=== PATIENT | male | born 1945 | race Caucasian/White ===

== ENCOUNTER 2017-03-09 10:30 | Inpatient (IN) | payer MEDICARE, OTHER, SELFPAY | END 2017-03-20 10:55 | DRG 193 | PROVIDERS: Admitting Provider Family Medicine; Family Provider Family Medicine; Visit Provider Family Medicine | DX: J18.9 Pneumonia, unspecified organism (principal); J96.02 Acute respiratory failure with hypercapnia; I69.351 Hemiplegia and hemiparesis following cerebral infarction affecting right dominant side; J44.9 Chronic obstructive pulmonary disease, unspecified; I10 Essential (primary) hypertension; E11.9 Type 2 diabetes mellitus without complications | CPT/HCPCS: 36415; 71010; 71020; 71275; 80048; 80053; 80202; 81001; 82150; 82550; 82553; 82803; 82962; 83690; 83880; 84484; 85025; 85378; 85651; 86738; 87040; 87070; 87077; 87116; 87205; 87486; 87581; 87633; 87798; 93005; 93306; 94640; 94660; 94667; 94668; 94760; 97162; 97530; G0238; J0456; J3370; Q9967 ==

== ENCOUNTER → 2017-04-16 12:43 | Outpatient (CLI) | payer MEDICARE, OTHER, SELFPAY ==
[2017-04-16 13:57] VITALS: PULSE 66
== END ==
PROVIDERS: Family Provider Family Medicine; PCP Family Medicine; Visit Provider Family Medicine
DX: R06.02 Shortness of breath (principal)
CPT/HCPCS: 94060; 94640; 94726; 94729

== ENCOUNTER → 2017-04-27 11:26 | Outpatient (POV) | payer MEDICARE, OTHER, SELFPAY ==
--- NOTE | 2017-04-27 14:36 | XR_ITS ---
XR chest 2V HISTORY: ITS.REASON: EMPHYSEMA,RECURRRENT PNEUMONIA ORDERING PHYSICIAN: Mika Jimenez MD PATIENT AGE: 71 years COMPARISON: 03/13/2017 FINDINGS: The cardiomediastinal silhouette and pulmonary vascularity are within normal limits. COPD changes. Right upper lobe pneumonia has improved. There is a triangle shaped area of increased density in the right lung base laterally which is developed in the interval may be due to an area of atelectasis or infiltrate. The remaining lungs are clear. There is hyperinflation with eventration of the hemidiaphragms.. No acute bony abnormalities. IMPRESSION: 1. COPD. 2. Improved right upper lobe infiltrate. 3. Small triangle shaped opacity right lung base laterally which may be due to an area of atelectasis or infiltrate
[2017-04-28 08:23] LABS: Immunoglobulin A, Qn 99 mg/dL (61-437); Immunoglobulin G, Qn 580 mg/dL (700-1600)
[2017-04-30 10:52] LABS: Immunoglobulin M, Qn 69 mg/dL (20-172)
== END ==
PROVIDERS: Family Provider Family Medicine; PCP Family Medicine; Visit Provider Internal Medicine
DX: J43.9 Emphysema, unspecified (principal)
CPT/HCPCS: 36415; 71046; 82784

== ENCOUNTER 2017-04-27 13:37 | Outpatient (RCR) | payer MEDICARE, OTHER, SELFPAY | END 2017-04-27 13:40 | disposition home or self-care (01) | LOC: PT 13:37 | PROVIDERS: Family Provider Family Medicine; PCP Family Medicine; Visit Provider Family Medicine | DX: J43.9 Emphysema, unspecified (principal); J18.9 Pneumonia, unspecified organism | CPT/HCPCS: 36415; 82784; G0424 ==

== ENCOUNTER 2017-04-30 13:00 | Outpatient (RCR) | payer MEDICARE, OTHER, SELFPAY | END 2017-04-30 13:01 | disposition home or self-care (01) | LOC: PT 13:00 | PROVIDERS: Family Provider Family Medicine; Visit Provider Physical Medicine & Rehabilitation | DX: J96.90 Respiratory failure, unspecified, unspecified whether with hypoxia or hypercapnia (principal); J18.9 Pneumonia, unspecified organism; R53.81 Other malaise | CPT/HCPCS: 97110 ==

== ENCOUNTER → 2017-07-12 16:00 | Outpatient (CLI) | payer MEDICARE, OTHER, SELFPAY ==
--- NOTE | 2017-07-12 16:04 | XR_ITS ---
XR ribs LT min 3V w CXR1V HISTORY: Left sided chest wall pain, left axillary pain, palpable abnormality left axilla ITS.REASON: CHEST WALL PAIN ORDERING PHYSICIAN: Amador Wilson MD PATIENT AGE: 71 years COMPARISON: 04/27/2017 FINDINGS: A frontal view of the chest shows no acute finding. There is hyperinflation with COPD Multiple views of the Left ribs were obtained. No fracture or dislocation. No lytic or blastic change. IMPRESSION: 1. Negative left ribs. 2. COPD. 3. Consider chest CT with contrast for further evaluation if there is indeed a palpable abnormality in the left axilla
== END ==
PROVIDERS: PCP Family Medicine; Visit Provider Family Medicine
DX: D48.7 Neoplasm of uncertain behavior of other specified sites (principal)
CPT/HCPCS: 71101

== ENCOUNTER → 2017-07-22 07:48 | Outpatient (CLI) | payer MEDICARE, OTHER, SELFPAY ==
--- NOTE | 2017-07-22 07:52 | CT_ITS ---
CT chest wo con HISTORY: Left-sided chest wall mass ITS.REASON: CHEST WALL MASS ORDERING PHYSICIAN: Amador Wilson MD PATIENT AGE: 71 years Technique: Axial images obtained. Sagittal and coronal reformatted images are also generated and reviewed. All CT scans at the facility use one or more dose reduction, viz: automated exposure control; ma/kV adjustment per patient size (including targeted exams where dose is matched to indication; i.e. head); or iterative reconstruction technique. CONTRAST: None COMPARISON: 03/12/2017 FINDINGS: Scattered small lymph nodes are present within the mediastinum somewhat less apparent than when compared to previous exam. No evidence of aortic aneurysm. There are coronary artery calcifications. Minimal pericardial thickening. Extensive centrilobular emphysema with mild bronchial thickening. There is patchy peripheral infiltrate involving the right lung base. There has been interval development of a 3.9 x 2.4 cm irregular density in the extreme right lung base slightly posteriorly. No air bronchograms are evident within this lesion. This could be due to an area of consolidated lung from pneumonia or pulmonary infarction. Neoplasm is also a consideration. This however was not present on 03/12/2017. The previously noted pneumonia in the right lung base laterally as shown some improvement. There is a 1.7 x 1.2 cm oval soft tissue density in the subcutaneous region of the left anterolateral chest wall. This is located in the seventh interspace. Is not significantly changed dating back to an older chest CT of 01/28/2015. This may be due to a sebaceous cyst or neuroma. No bony destruction evident. No acute bony anomalies. No acute finding in the upper chest. IMPRESSION: 1. There is a 1.7 x 1.2 cm oval soft tissue density in the subcutaneous region of the left anterolateral chest wall. This is located in the seventh interspace. Is not significantly changed dating back to an older chest CT of 01/28/2015. This may be due to a sebaceous cyst or neuroma. No bony destruction evident and no significant change. 2. 3.9 x 2.4 cm irregular density in the extreme right lung base which may be due to consolidated lung from pneumonia or pulmonary infarction versus neoplasm. Follow-up recommended. CT pulmonary angiogram may be of further value initially. 3. Centrilobular emphysema with resolving pneumonia in the right lung base laterally
== END ==
PROVIDERS: Family Provider Family Medicine; PCP Family Medicine; Visit Provider Family Medicine
DX: D48.7 Neoplasm of uncertain behavior of other specified sites (principal); R22.2 Localized swelling, mass and lump, trunk
CPT/HCPCS: 71250

== ENCOUNTER → 2017-08-13 11:27 | Outpatient (CLI) | payer MEDICARE, OTHER, SELFPAY ==
[2017-08-13 13:09] LABS: Blood Urea Nitrogen 17 mg/dL (7-18); Creatinine,Serum 0.96 mg/dL (0.70-1.30); Estimated Glomerular Filt Rate 78 ml/min (>60); GFR (African American) 94 ML/MIN (>60)
== END ==
PROVIDERS: Visit Provider Family Medicine
DX: D38.1 Neoplasm of uncertain behavior of trachea, bronchus and lung (principal)
CPT/HCPCS: 36415; 82565; 84520

== ENCOUNTER → 2017-08-16 09:25 | Outpatient (CLI) | payer MEDICARE, OTHER, SELFPAY ==
--- NOTE | 2017-08-16 09:33 | CT_ITS ---
CT angio chest HISTORY: Follow-up right lower lobe mass ITS.REASON: NEOPLASM OF LUNG ORDERING PHYSICIAN: Amador Wilson MD PATIENT AGE: 71 years COMPARISON: 07/22/2017 TECHNIQUE: Axial images obtained following the administration of 75 mL of Isovue 370 . Sagittal, and coronal reformatted images are also generated and reviewed. All CT scans at the facility use one or more dose reduction, viz: automated exposure control; ma/kV adjustment per patient size (including targeted exams where dose is matched to indication; i.e. head); or iterative reconstruction technique. FINDINGS: There are scattered small nodes in the mediastinum and shavon. No mass or adenopathy. There are coronary artery calcifications. No evidence of aortic aneurysm or dissection no evidence of pulmonary embolus. There are diffuse centrilobular emphysematous changes with scattered areas of fibrosis masslike lesion is once again noted in the right lung base abutting the hemidiaphragm. This however is smaller than when compared to the previous study measuring 2.7 cm AP, 1.4 cm transverse, and up to 2 cm cephalad to caudad previously measuring 3.9 x 2.4 x 2.9 cm in similar dimensions. This does abut the hemidiaphragm. There is a small cavity developing in the apex of this lesion. The margins are irregular. The lungs are otherwise clear. Upper abdominal images are unremarkable. No acute bony anomalies. No change soft tissue nodule in the subcutaneous tissues in the left seventh interspace anteriorly IMPRESSION: 1. Soft tissue mass was again noted along the right hemidiaphragm but is slightly smaller compared to the previous study. Recommend follow until clear. Consider 3 month follow-up 2. Centrilobular emphysema
== END ==
PROVIDERS: Family Provider Family Medicine; PCP Family Medicine; Visit Provider Family Medicine
DX: D49.1 Neoplasm of unspecified behavior of respiratory system (principal)
CPT/HCPCS: 71275; Q9967

== ENCOUNTER → 2017-08-31 15:49 | Outpatient (POV) | payer MEDICARE, OTHER, SELFPAY | PROVIDERS: Family Provider Family Medicine; PCP Family Medicine; Visit Provider Internal Medicine | DX: Z00.00 Encounter for general adult medical examination without abnormal findings (principal) ==

== ENCOUNTER → 2018-03-09 12:56 | Outpatient (CLI) | payer MEDICARE, OTHER, SELFPAY ==
--- NOTE | 2018-03-09 12:59 | CT_ITS ---
CT lung screening EXAM: CT LUNG LOW DOSE WO CONTRAST HISTORY: 50 pack-year smoking history, asymptomatic for lung cancer ITS.REASON: HX TOBACCO USE ORDERING PHYSICIAN: Mika Jimenez MD PATIENT AGE: 72 years COMPARISON: 08/16/2017. TECHNIQUE: The exam was performed on a GE Light Speed [address] scanner using 2.9 mGy CTDI. A low dose helical CT CHEST was performed on a multi-detector scanner. All CT scans at the facility use one or more dose reduction, viz: automated exposure control, ma/kV adjustment per patient size (including targeted exams where dose is matched to indication, i.e. head), or iterative reconstruction technique. The LDCT was performed in a facility that meets the criteria for the screening program. Data regarding this exam was submitted to ACR which is an approved registry. The order for this exam indicates that it came as a result of a lung cancer screening counseling shard decision-making visit that included all the elements required of such a visit including smoking cessation. The radiologist interpreting this exam meets the CMS criteria for the LDCT lung cancer screening program. The exam is reported using the Lung-RADS classification scale and reported to the ACR registry. NOTE: This study was performed for the specific purposes of lung cancer screening and is not an alternative to diagnostic chest CT. RADIATION DOSE: CTDI vol(CT dose Index-volume) = 2.9mG DLP (Dose Length Product) = 124.28 mGcm FINDINGS: Centrilobular, hyperinflation with bronchial thickening consistent with obstructive chronic bronchitis. There are several new small pulmonary nodules. These are noncalcified and are 5 mm or less including a 4 mm nodule right apex, image #18, 4 mm nodule right upper lobe image #29, 4 mm nodule right upper lobe posteriorly image #35, 5 mm nodule left apex medially image #17, 3 mm nodule central aspect of the left upper lobe image #43, 4 mm nodule superior segment left lower lobe image #43. These are well-circumscribed and noncalcified. The previously noted mass in the right lung base is no longer apparent. No effusions or infiltrates. No adenopathy. Coronary artery calcifications are present. IMPRESSION: 1. Lung RADS Category: 4A, there are multiple new pulmonary nodules 5 mm or less. These could be inflammatory/infectious or neoplastic 2. Other findings: Previously noted mass in the right lung base. Coronary artery calcifications RECOMMENDATIONS: [address] follow-up
== END ==
PROVIDERS: PCP Family Medicine; Visit Provider Internal Medicine
DX: Z87.891 Personal history of nicotine dependence (principal)

== ENCOUNTER → 2018-04-05 15:01 | Outpatient (POV) | payer MEDICARE, OTHER, SELFPAY | PROVIDERS: Visit Provider Internal Medicine | DX: Z00.00 Encounter for general adult medical examination without abnormal findings (principal) ==

== ENCOUNTER → 2018-07-11 10:32 | Outpatient (CLI) | payer MEDICARE, OTHER, SELFPAY ==
[2018-07-11 12:06] LABS: Blood Urea Nitrogen 14 mg/dL (7-18); Creatinine,Serum 0.82 mg/dL (0.70-1.30); Estimated Glomerular Filt Rate 93 ml/min (>60); GFR (African American) 112 ML/MIN (>60)
== END ==
PROVIDERS: Visit Provider Family Medicine
DX: R91.1 Solitary pulmonary nodule (principal)
CPT/HCPCS: 36415; 82565; 84520

== ENCOUNTER → 2018-07-12 09:27 | Outpatient (CLI) | payer MEDICARE, OTHER, SELFPAY ==
--- NOTE | 2018-07-12 09:33 | CT_ITS ---
CT chest wo/w con HISTORY: ITS.REASON: PULMONARY NODULE,MASS IN CHEST WALL ORDERING PHYSICIAN: Gla Reyna MD PATIENT AGE: 72 years COMPARISON: 08/16/2017 Technique: Axial images obtained without and following the administration of 75 mL of Optiray 350 . Sagittal, and coronal reformatted images are also generated and reviewed. All CT scans at the facility use one or more dose reduction, viz: automated exposure control, ma/kV adjustment per patient size (including targeted exams where dose is matched to indication, i.e. head), or iterative reconstruction technique. FINDINGS: There are mild atheromatous of the aorta. Scattered small mediastinal nodes are present not significantly changed. There are coronary artery calcifications demonstrated on the unenhanced images. The heart is somewhat smaller than expected with a be secondary to COPD. No evidence of aortic aneurysm, dissection, or central pulmonary embolus. Hyperinflation with attenuation of the peripheral pulmonary vessels consistent with COPD with centrilobular emphysema and scattered fibronodular changes in the apices with scattered scarring. There is a stable 5 mm nodule in the right middle lobe. Calcified granulomas present in the right lower lobe medially. There is a new 4 mm nodule in the left apex posteriorly not readily apparent on the previous exam. No central obstructing lesions are evident. No lobar consolidation or collapse. The previously noted parenchymal opacity in the right lung base abutting the hemidiaphragm is no longer apparent and was likely related to an area of pneumonia/volume loss. No acute bony findings. IMPRESSION: 1. COPD with centrilobular emphysema and scattered areas of scarring. 2. Resolved right basilar consolidation/parenchymal abnormality. 2. No change 5 mm middle lobe nodule. There is a new 4 mm left apical nodule. 6-12 month follow-up suggested to confirm stability
== END ==
PROVIDERS: PCP Family Medicine; Visit Provider Family Medicine
DX: R91.1 Solitary pulmonary nodule (principal); R22.2 Localized swelling, mass and lump, trunk
CPT/HCPCS: 71270; Q9967

== ENCOUNTER → 2018-09-09 15:06 | Outpatient (CLI) | payer MEDICARE, OTHER, SELFPAY ==
--- NOTE | 2018-09-09 15:10 | CT_ITS ---
CT chest wo con HISTORY: Follow-up lung nodule, pulmonary nodules, COPD, emphysema ITS.REASON: ABN FINDING ON LUNG IMAGING ORDERING PHYSICIAN: Mika Jimenez MD PATIENT AGE: 72 years COMPARISON: 07/12/2018, 07/22/2017 Technique: Axial images obtained. Sagittal, and coronal reformatted images are also generated and reviewed. All CT scans at the facility use one or more dose reduction, viz: automated exposure control, ma/kV adjustment per patient size (including targeted exams where dose is matched to indication, i.e. head), or iterative reconstruction technique. FINDINGS: No mediastinal or hilar mass or adenopathy. There are coronary artery calcifications. There is a small node in the aortopulmonic window at 13 x 10 mm unchanged. Centrilobular emphysema present with scattered areas of pulmonary scarring. There is hyperinflation with diffuse bronchial thickening consistent with obstructive chronic bronchitis. There is a 5 mm nodule in the left apex as previously described does not appear significantly changed. No new nodules are evident. No effusions or infiltrates. IMPRESSION: 1. Stable CT appearance of the chest. 2. No change 5 mm left apical nodule. 3. Centrilobular emphysema/COPD with coronary artery calcification noted
== END ==
PROVIDERS: PCP Family Medicine; Visit Provider Internal Medicine
DX: R91.8 Other nonspecific abnormal finding of lung field (principal)
CPT/HCPCS: 71250

== ENCOUNTER → 2018-10-04 14:43 | Outpatient (POV) | payer MEDICARE, OTHER, SELFPAY | PROVIDERS: Visit Provider Internal Medicine | DX: Z00.00 Encounter for general adult medical examination without abnormal findings (principal) ==

== ENCOUNTER 2018-11-04 10:56 | Inpatient (IN) ==
--- NOTE | 2018-11-04 12:12 | History & Physical Report ---
*Admission Date: 11/04/18 <Lizzie Paris 11/04/18 12:17> *Chief complaint: SOA <Lizzie Paris 11/04/18 12:17> *History of present illness: Mr. Rivera is a 73-year-old male with a history of COPD, type 2 diabetes, hypertension, and hyperlipidemia who was seen in the office [facility] on 11/02/2018 for COPD exacerbation. At that time he was started on prednisone and Levaquin. He states that shortness of breath progressively got worse to the point where he had to begin wearing oxygen at 2 L/min at home. He has been coughing of yellow sputum and has been having chills. He returned to the office today on 11/04/2018 and his oxygen was 96% on 2 L. He was having some burning in his chest and was admitted for acute and chronic respiratory failure with hypoxia as well as a COPD exacerbation failing outpatient treatment. <Lizzie Paris 11/04/18 12:17> [facility] History I have reviewed the patient's past medical history: Yes <Lizzie Paris 11/04/18 12:17> Medical History: Reports:: Chronic Obstructive Pulmonary Disease (COPD), Diabetes Mellitus Type 2, Hyperlipidemia, Hypertension <Lizzie Paris 11/04/18 12:17> *Have you ever received a pneumonia vaccine?: Yes <Lizzie Paris 11/04/18 12:17> *Have you received a flu vaccine this season?: Yes <Lizzie Paris 11/04/18 13:28> Other Medical History: Reports: Arthritis <Lizzie Paris 11/04/18 12:17> Laterality Cases: Bilateral: Tonsillectomy <Lizzie Paris 11/04/18 12:17> Other Surgeries: Yes: Colonoscopy, Hernia Repair, Other <Lizzie Paris 11/04/18 12:17> Amputation: No <Lizzie Paris 11/04/18 12:17> Fractures: No <Lizzie Paris 11/04/18 12:17> - *Social History Smoking Status: Former smoker <Lizzie Paris 11/04/18 12:17> Alcohol Intake: never <Lizzie Paris 11/04/18 12:17> Substance Use Type: denies use <Lizzie Paris 11/04/18 12:17> *Occupational Status:: retired <RainaLizzie 11/04/18 12:17> Housing: house <RainaLizzie 11/04/18 12:17> Household Members: spouse <Lizzie Paris 11/04/18 12:17> *Travel in the last 8 weeks: None <DemondmillieLizzie 11/04/18 13:28> Family Hx:: Cancer, Hypertension, Hyperlipidemia <RainaLizzie 11/04/18 12:17> Review of Systems - Constitutional Reports chills, Reports fatigue, Reports weakness <DemondmillieLizzie 11/04/18 12:17> - Eyes Denies blurry vision, Denies double vision <RainaLizzie 11/04/18 12:17> - ENT Reports nasal congestion, Reports sore throat <RainaLizzie 11/04/18 12:17> - *Cardiovascular Reports chest pain, Reports shortness of breath, Denies rapid, pounding, or irregular heartbeat <DemondmillieLizzie 11/04/18 12:17> - *Respiratory Reports cough, Reports shortness of breath [facility] 11/04/18 12:17> - *Gastrointestinal Denies abdominal pain, Denies loose stools, Denies nausea, Denies vomiting <RainaLizzie 11/04/18 12:17> - *Genitourinary Denies difficulty urinating, Denies painful urination <[facility] 11/04/18 12:17> - *Musculoskeletal Denies joint pain <[facility] 11/04/18 12:17> - *Neurologic Reports weakness, Denies headache(s), Denies dizziness <[facility] 11/04/18 12:17> Meds Home Medications Medication Instructions Recorded Confirmed Type albuterol sulfate 1.25 mg/3 mL 1.25 mg INHALATION Q6HP PRN 02/18/18 11/04/18 History solution for nebulization amlodipine 5 mg tablet 5 mg PO DAILY 30 Days tab 02/18/18 11/04/18 History aspirin 325 mg tablet 325 mg PO DAILY 02/18/18 11/04/18 History atorvastatin 40 mg tablet 40 mg PO HS 30 Days tab 02/18/18 11/04/18 History coenzyme Q10 75 mg capsule 75 mg PO DAILY 02/18/18 11/04/18 History gabapentin 300 mg capsule 300 mg PO TID 30 Days cap 02/18/18 11/04/18 History metformin 1,000 mg tablet 1,000 mg PO BID 90 Days tab 02/18/18 11/04/18 History metoprolol tartrate 25 mg tablet 12.5 mg PO BID 30 Days tab 02/18/18 11/04/18 History omeprazole 40 mg capsule,delayed 40 mg PO DAILY 90 Days cap 02/18/18 11/04/18 History release Fluticasone Propionate [Flonase 1 spray INTRANASAL DAILY 11/04/18 11/04/18 History Allergy Relief NS] Ipratropium [place] [Atrovent 0.5 mg IH Q6HP PRN 11/04/18 11/04/18 History 0.5mg/2.5mL neb] <Mary Goodson - 11/04/18 14:19> Allergies Allergy/AdvReac Type Severity Reaction Status Date / Time lisinopril [LISINOPRIL] Allergy Intermediate SWELLING Verified 11/04/18 13:21 <Mary Goodson - 11/04/18 14:19> Exam Vital signs and Labs for Last 24 Hours: Temp Pulse Resp BP Pulse Ox 98.4 F 91 H 22 134/67 98 11/04/18 11:34 11/04/18 12:24 11/04/18 11:34 11/04/18 11:34 11/04/18 12:24 Laboratory Results - last 24 hr 11/04/18 12:00: WBC 12.5 H, RBC 4.73, Hgb 13.7 L, Hct 43.4, MCV 91.8, MCH 28.9, MCHC 31.4 L, RDW 14.2, Plt Count 368, MPV 7.7, Neut % (Auto) 81.3 H, Lymph % (Auto) 12.2, [place] % (Auto) 5.6, Eos % (Auto) 0.7, Baso % (Auto) 0.2, Neut # (Auto) 10.2 H, Lymph # (Auto) 1.5, [facility] # (Auto) 0.7, Eos # (Auto) 0.1, Baso # (Auto) 0.0 11/04/18 12:00: Sodium 141, Potassium 4.5, Chloride 104, Carbon Dioxide 29, Anion Gap 12.5, BUN 19 H, Creatinine 0.90, Estimated Creat Clear 57, Estimated GFR 83, Est GFR ( Amer) 101, Glucose 133 H, Calcium 9.3, Total Bilirubin 0.2, AST 11 L, ALT 24, Alkaline Phosphatase 98, Total Protein 6.6, Albumin 3.4, Globulin 3.2, Albumin/Globulin Ratio 1.1 <GoodsonMary - 11/04/18 14:19> Temp Pulse Resp BP Pulse Ox 98.4 F 80 22 134/67 93 L 11/04/18 11:34 11/04/18 11:34 11/04/18 11:34 11/04/18 11:34 11/04/18 11:34 <Lizzie Paris - 11/04/18 12:17> I & O for Last 24 hours: Intake & Output 11/02/18 11/03/18 11/04/18 11/05/18 11:59 11:59 11:59 11:59 Intake Total 240 / 240 Balance 240 / 240 Weight 130 lb <GoodsonMary 11/04/18 14:19> Intake & Output 11/01/18 11/02/18 11/03/18 11/04/18 11:59 11:59 11:59 11:59 Weight 130 lb <Lizzie Paris 11/04/18 12:17> - Constitutional mild distress (Dyspneic) <Lizzie Paris 11/04/18 12:17> - *Routine HEENT Exam Head: Present: normocephalic <Lizzie Paris - 11/04/18 12:17> Eye: Present: EOMI, PERRL <Lizzie Paris 11/04/18 12:17> ENT: Present: mucous membranes dry <Lizzie Paris 11/04/18 12:17> - *Routine Neck Exam Present: supple. Absent: lymphadenopathy <Lizzie Paris 11/04/18 12:17> - *Routine Respiratory Exam Present: decreased breath sounds, wheezes (Bilateral). Absent: rales <Lizzie Paris 11/04/18 12:17> - *Routine Cardiovascular Exam Present: RRR <Wyatt Parisa 11/04/18 12:17> - *Routine Abdominal Exam Present: soft, normoactive bowel sounds. Absent: tenderness <Lizzie Paris 11/04/18 12:17> - *Routine Extremities Exam Absent: cyanosis, clubbing, edema <Lizzie Paris 11/04/18 12:17> - *Routine Skin Exam Present: warm. Absent: rash <Lizzie Paris 11/04/18 12:17> - *Routine Neurological Exam Present: alert, oriented X3 <Wyatt Parisa 11/04/18 12:17> Assessment and Plan (1) COPD exacerbation Current visit: Yes Status: Acute Category: Medical Code(s): J44.1 - Chronic obstructive pulmonary disease with (acute) exacerbation (2) Acute and chronic respiratory failure with hypoxia Current visit: Yes Status: Acute Category: Medical Code(s): J96.21 - Acute and chronic respiratory failure with hypoxia (3) Hypertension Current visit: Yes Status: Chronic Category: Medical Code(s): I10 - Essential (primary) hypertension (4) Hyperlipidemia Current visit: Yes Status: Chronic Category: Medical Code(s): E78.5 - Hyperlipidemia, unspecified (5) Type 2 diabetes mellitus Current visit: Yes Status: Chronic Category: Medical Code(s): E11.9 - Type 2 diabetes mellitus without complications (6) COPD (chronic obstructive pulmonary disease) Current visit: Yes Status: Chronic Category: Medical Code(s): J44.9 - Chronic obstructive pulmonary disease, unspecified <Lizzie Paris 11/04/18 13:24> (1) Acute and chronic respiratory failure with hypoxia Current visit: Yes Status: Acute Category: Medical Code(s): J96.21 - Acute and chronic respiratory failure with hypoxia (2) COPD exacerbation Current visit: Yes Status: Acute Category: Medical Code(s): J44.1 - Chronic obstructive pulmonary disease with (acute) exacerbation (3) Hypertension Current visit: Yes Status: Chronic Category: Medical Code(s): I10 - Essential (primary) hypertension (4) Hyperlipidemia Current visit: Yes Status: Chronic Category: Medical Code(s): E78.5 - Hyperlipidemia, unspecified (5) Type 2 diabetes mellitus Current visit: Yes Status: Chronic Category: Medical Code(s): E11.9 - Type 2 diabetes mellitus without complications (6) COPD (chronic obstructive pulmonary disease) Current visit: Yes Status: Chronic Category: Medical Code(s): J44.9 - Chronic obstructive pulmonary disease, unspecified <Mary Goodson - 11/04/18 14:19> - Assessment and plan all Dx Assessment and Plan for all problems:: Agree with above, will admit under Dr. Roach as patient prefers to see him. Will await cultures and treat as his clinical course dictates. <Mary Goodson - 11/04/18 14:19> The patient will be admitted and started on oxygen, nebs, IV steroids, and IV antibiotics after failing outpatient therapy. We will get a chest x-ray, sputum culture, and blood cultures. <Lizzie Paris - 11/04/18 12:17>
[2018-11-04 12:29] LABS: Basophils % 0.2 % (0.1-2.0); Eosinophils # 0.1 K/mm3 (0.0-0.4); Eosinophils % 0.7 % (0.1-12.0); Hematocrit 43.4 % (42.0-52.0); Hemoglobin 13.7 g/dL (14.1-18.0); Lymphocytes # 1.5 K/mm3 (0.7-4.5); Lymphocytes % 12.2 % (10-50); Mean Corpuscular HGB Conc 31.4 g/dL (31.8-35.4); Mean Corpuscular Volume 91.8 fl (80-94); Mean Platelet Volume 7.7 fl (7.4-10.4); Monocytes # 0.7 K/mm3 (0.1-1.0); Monocytes % 5.6 % (1.7-9.3); Neutrophils # 10.2 K/mm3 (1.8-7.8); Neutrophils % 81.3 % (37.0-80.0); Platelet Count 368 K/mm3 (142-424); Red Blood Count 4.73 M/mm3 (4.60-6.20); Red Cell Distribution Width 14.2 % (11.5-17.5); White Blood Count 12.5 K/mm3 (4.8-10.8)
[2018-11-04 12:39] LABS: Albumin Level 3.4 gm/dL (3.4-5.0); Albumin/Globulin Ratio 1.1 (1.1-1.8); Anion Gap 12.5 mEq/L (5-15); Bilirubin,Total 0.2 mg/dL (0.2-1.0); Calcium 9.3 mg/dL (8.5-10.1); Globulin 3.2 gm/dl (1.3-3.2); Total Protein,Serum 6.6 gm/dL (6.4-8.2)
--- NOTE | 2018-11-04 13:55 | Pharmacy Consult Notes ---
[facility] Pharmacy VTE Monitoring - Patient Demographics Admission date: 11/04/18 Report Date: 11/04/18 Time: 13:55 Allergies/Adverse Reactions: Patient Allergies lisinopril [LISINOPRIL] Allergy (Intermediate, Verified 11/04/18 13:21) SWELLING Height: 1.78 m Weight: 58.967 kg Patient Problems: Current Active Problems COPD exacerbation (Acute) Acute and chronic respiratory failure with hypoxia (Acute) Hypertension (Chronic) Hyperlipidemia (Chronic) Type 2 diabetes mellitus (Chronic) COPD (chronic obstructive pulmonary disease) (Chronic) - VTE Risk Labs: VTE Related Lab Results Hgb 13.7 g/dL (14.1-18.0) L 11/04/18 12:00 Hct 43.4 % (42.0-52.0) 11/04/18 12:00 Plt Count 368 K/mm3 (142-424) 11/04/18 12:00 BUN 19 mg/dL (7-18) H 11/04/18 12:00 Creatinine 0.90 mg/dL (0.70-1.30) 11/04/18 12:00 Estimated Creat Clear 57 mL/min (50-200) 11/04/18 12:00 Was VTE Risk Assessment Performed: Yes VTE Score: 3 VTE Risk Level: Low Risk Clinical Trial Participant: No - Prophylaxis VTE Prophylaxis Ordered?: Yes Types of VTE Prophylaxis: TEDS Knee High
[2018-11-05 06:13] LABS: Basophils % 0.2 % (0.1-2.0); Eosinophils # 0.1 K/mm3 (0.0-0.4); Eosinophils % 1.1 % (0.1-12.0); Hematocrit 39.8 % (42.0-52.0); Hemoglobin 13.1 g/dL (14.1-18.0); Lymphocytes # 1.2 K/mm3 (0.7-4.5); Lymphocytes % 13.1 % (10-50); Mean Corpuscular HGB Conc 33.1 g/dL (31.8-35.4); Mean Corpuscular Volume 92.4 fl (80-94); Monocytes # 0.4 K/mm3 (0.1-1.0); Monocytes % 4.9 % (1.7-9.3); Neutrophils # 7.2 K/mm3 (1.8-7.8); Neutrophils % 80.7 % (37.0-80.0); Platelet Count 311 K/mm3 (142-424); Red Cell Distribution Width 14.2 % (11.5-17.5); White Blood Count 8.9 K/mm3 (4.8-10.8)
--- NOTE | 2018-11-05 10:42 | Progress Note ---
Internal Medicine - PN: Subj *Date: 11/05/18 *Time: 10:39 Interval history: The chart is reviewed. On exam the patient has decreased breath sounds and bilateral wheezes. He is in no acute distress. He has no leg edema. His heart rate is regular and sinus. He normally takes amlodipine 5 mg a day. His blood pressure is good this morning. I will initiate 2.5 mg today. There could be some assistance with his bronchospasm with this medication. Exam Vital signs and Labs for Last 24 Hours: Temp Pulse Resp BP Pulse Ox 98.5 F 89 19 137/70 91 L 11/05/18 07:44 11/05/18 07:44 11/05/18 07:44 11/05/18 07:44 11/05/18 07:44 Laboratory Results - last 24 hr 11/04/18 12:00: WBC 12.5 H, RBC 4.73, Hgb 13.7 L, Hct 43.4, MCV 91.8, MCH 28.9, MCHC 31.4 L, RDW 14.2, Plt Count 368, MPV 7.7, Neut % (Auto) 81.3 H, Lymph % (Auto) 12.2, [place] % (Auto) 5.6, Eos % (Auto) 0.7, Baso % (Auto) 0.2, Neut # (Auto) 10.2 H, Lymph # (Auto) 1.5, [place] # (Auto) 0.7, Eos # (Auto) 0.1, Baso # (Auto) 0.0 11/04/18 12:00: Sodium 141, Potassium 4.5, Chloride 104, Carbon Dioxide 29, Anion Gap 12.5, BUN 19 H, Creatinine 0.90, Estimated Creat Clear 57, Estimated GFR 83, Est GFR ( Amer) 101, Glucose 133 H, Calcium 9.3, Total Bilirubin 0.2, AST 11 L, ALT 24, Alkaline Phosphatase 98, Total Protein 6.6, Albumin 3.4, Globulin 3.2, Albumin/Globulin Ratio 1.1 11/04/18 13:23: Mycoplasma pneumon IgM Non-reactive 11/04/18 14:21: Lactate 2.2 H 11/04/18 18:45: Lactate 3.5 H 11/04/18 22:15: Lactate 2.7 H 11/05/18 05:45: WBC 8.9 D, RBC 4.30 L, Hgb 13.1 L, Hct 39.8 L, MCV 92.4, MCH 30.5, MCHC 33.1, RDW 14.2, Plt Count 311, MPV 8.0, Neut % (Auto) 80.7 H, Lymph % (Auto) 13.1, [place] % (Auto) 4.9, Eos % (Auto) 1.1, Baso % (Auto) 0.2, Neut # (Auto) 7.2, Lymph # (Auto) 1.2, [place] # (Auto) 0.4, Eos # (Auto) 0.1, Baso # (Auto) 0.0 I & O for Last 24 hours: Intake & Output 11/02/18 11/03/18 11/04/18 11/05/18 11:59 11:59 11:59 11:59 Intake Total 2409 / 2409 Output Total 1800 / 1800 Balance 609 / 609 Weight 130 lb 130 lb Microbiology Reports for the Last 24 Hours: Microbiology 11/04/18 21:00 Sputum - Expectorated Sputum Gram Stain - Final 11/04/18 21:00 Sputum - Expectorated Sputum Sputum Culture - Preliminary - Constitutional no acute distress - *Routine HEENT Exam Head: Present: normocephalic Eye: Present: PERRL ENT: Present: mucous membranes moist - *Routine Respiratory Exam Present: decreased breath sounds, wheezes - *Routine Cardiovascular Exam Present: RRR - *Routine Abdominal Exam Present: soft. Absent: tenderness - *Routine Extremities Exam Absent: edema - *Routine Neurological Exam Present: alert, oriented X3 Assessment and Plan (1) Acute and chronic respiratory failure with hypoxia Current visit: Yes Status: Acute Category: Medical Code(s): J96.21 - Acute and chronic respiratory failure with hypoxia (2) COPD exacerbation Current visit: Yes Status: Acute Category: Medical Code(s): J44.1 - Chronic obstructive pulmonary disease with (acute) exacerbation (3) Hypertension Current visit: Yes Status: Chronic Category: Medical Code(s): I10 - Essential (primary) hypertension (4) Hyperlipidemia Current visit: Yes Status: Chronic Category: Medical Code(s): E78.5 - Hy perlipidemia, unspecified (5) Type 2 diabetes mellitus Current visit: Yes Status: Chronic Category: Medical Code(s): E11.9 - Type 2 diabetes mellitus without complications (6) COPD (chronic obstructive pulmonary disease) Current visit: Yes Status: Chronic Category: Medical Code(s): J44.9 - Chronic obstructive pulmonary disease, unspecified - Assessment and plan all Dx Assessment and Plan for all problems:: Continue present regimen. White count has declined. Amlodipine is added as mentioned.
--- NOTE | 2018-11-05 12:08 | Pharmacy Consult Notes ---
[facility] Pharmacy VTE Monitoring - Patient Demographics Admission date: 11/05/18 Report Date: 11/05/18 Time: 12:07 Allergies/Adverse Reactions: Patient Allergies lisinopril [LISINOPRIL] Allergy (Intermediate, Verified 11/04/18 13:21) SWELLING Height: 1.78 m Weight: 58.967 kg Patient Problems: Current Active Problems COPD exacerbation (Acute) Acute and chronic respiratory failure with hypoxia (Acute) Hypertension (Chronic) Hyperlipidemia (Chronic) Type 2 diabetes mellitus (Chronic) COPD (chronic obstructive pulmonary disease) (Chronic) - VTE Risk Labs: VTE Related Lab Results Hgb 13.1 g/dL (14.1-18.0) L 11/05/18 05:45 Hct 39.8 % (42.0-52.0) L 11/05/18 05:45 Plt Count 311 K/mm3 (142-424) 11/05/18 05:45 BUN 19 mg/dL (7-18) H 11/04/18 12:00 Creatinine 0.90 mg/dL (0.70-1.30) 11/04/18 12:00 Estimated Creat Clear 57 mL/min (50-200) 11/04/18 12:00 Was VTE Risk Assessment Performed: Yes VTE Score: 3 VTE Risk Level: Low Risk Clinical Trial Participant: No - Prophylaxis Types of VTE Prophylaxis: TEDS Knee High (ROSIE HOSE ORDERED) Location of Applied Device: Bilateral Lower Extremeties
[2018-11-06 06:25] LABS: Basophils % 0.2 % (0.1-2.0); Eosinophils # 0.1 K/mm3 (0.0-0.4); Eosinophils % 0.5 % (0.1-12.0); Hematocrit 40.6 % (42.0-52.0); Hemoglobin 12.9 g/dL (14.1-18.0); Lymphocytes # 1.5 K/mm3 (0.7-4.5); Lymphocytes % 10.5 % (10-50); Mean Corpuscular HGB Conc 31.7 g/dL (31.8-35.4); Mean Corpuscular Volume 92.1 fl (80-94); Monocytes # 0.7 K/mm3 (0.1-1.0); Neutrophils # 11.9 K/mm3 (1.8-7.8); Neutrophils % 83.7 % (37.0-80.0); Platelet Count 354 K/mm3 (142-424); Red Blood Count 4.41 M/mm3 (4.60-6.20); Red Cell Distribution Width 13.9 % (11.5-17.5); White Blood Count 14.2 K/mm3 (4.8-10.8)
--- NOTE | 2018-11-06 10:49 | Progress Note ---
Internal Medicine - PN: Subj *Date: 11/06/18 *Time: 10:47 Interval history: Patient doing well today. Able to breathe without any problems. Exam Vital signs and Labs for Last 24 Hours: Temp Pulse Resp BP Pulse Ox 98.2 F 84 17 129/58 L 97 11/06/18 07:51 11/06/18 07:51 11/06/18 07:51 11/06/18 07:51 11/06/18 07:51 Laboratory Results - last 24 hr 11/06/18 05:50: WBC 14.2 H D, RBC 4.41 L, Hgb 12.9 L, Hct 40.6 L, MCV 92.1, MCH 29.2, MCHC 31.7 L, RDW 13.9, Plt Count 354, MPV 8.0, Neut % (Auto) 83.7 H, Lymph % (Auto) 10.5, [place] % (Auto) 5.0, Eos % (Auto) 0.5, Baso % (Auto) 0.2, Neut # (Auto) 11.9 H, Lymph # (Auto) 1.5, [place] # (Auto) 0.7, Eos # (Auto) 0.1, Baso # (Auto) 0.0 I & O for Last 24 hours: Intake & Output 11/03/18 11/04/18 11/05/18 11/06/18 11:59 11:59 11:59 11:59 Intake Total 2559 / 2559 3222 / 3222 Output Total 1800 / 1800 2025 / 202 Balance 759 / 759 1197 / 1197 Weight 130 lb 130 lb 130 lb Microbiology Reports for the Last 24 Hours: Microbiology 11/04/18 21:00 Sputum - Expectorated Sputum Gram Stain - Final 11/04/18 21:00 Sputum - Expectorated Sputum Sputum Culture - Final Normal Respiratory Danielle - *Routine HEENT Exam Head: Present: normocephalic Eye: Present: EOMI, PERRL ENT: Present: mucous membranes moist - *Routine Neck Exam Present: supple. Absent: lymphadenopathy - *Routine Respiratory Exam Present: CTA bilaterally - *Routine Cardiovascular Exam Present: RRR - *Routine Abdominal Exam Present: soft, normoactive bowel sounds. Absent: tenderness - *Routine Extremities Exam Absent: cyanosis, clubbing, edema - *Routine Skin Exam Present: warm. Absent: rash - *Routine Neurological Exam Present: alert, oriented X3 Assessment and Plan (1) Acute and chronic respiratory failure with hypoxia Current visit: Yes Status: Acute Category: Medical Code(s): J96.21 - Acute and chronic respiratory failure with hypoxia (2) COPD exacerbation Current visit: Yes Status: Acute Category: Medical Code(s): J44.1 - Chronic obstructive pulmonary disease with (acute) exacerbation (3) Hypertension Current visit: Yes Status: Chronic Category: Medical Code(s): I10 - Essential (primary) hypertension (4) Hyperlipidemia Current visit: Yes Status: Chronic Category: Medical Code(s): E78.5 - Hyperlipidemia, unspecified (5) Type 2 diabetes mellitus Current visit: Yes Status: Chronic Category: Medical Code(s): E11.9 - Type 2 diabetes mellitus without complications (6) COPD (chronic obstructive pulmonary disease) Current visit: Yes Status: Chronic Category: Medical Code(s): J44.9 - Chronic obstructive pulmonary disease, unspecified - Assessment and plan all Dx Assessment and Plan for all problems:: We will start to wean off steroids and oxygen as tolerated. Possible discharge in 1 to 2 days.
--- NOTE | 2018-11-07 07:58 | Progress Note ---
Internal Medicine - PN: Subj *Date: 11/07/18 *Time: 07:58 Exam Vital signs and Labs for Last 24 Hours: Temp Pulse Resp BP Pulse Ox 98.1 F 93 H 18 156/81 H 94 L 11/07/18 04:00 11/07/18 06:21 11/07/18 04:00 11/07/18 04:00 11/07/18 06:21 I & O for Last 24 hours: Intake & Output 11/04/18 11/05/18 11/06/18 11/07/18 23:59 23:59 23:59 23:59 Intake Total 1263 / 1263 1926 / 1926 4449 / 4449 1051 / 1051 Output Total 900 / 900 1500 / 1500 1925 / 2275 1750 / 1750 Balance 363 / 363 426 / 426 2524 / 2174 -699 / -699 Weight 58.967 kg 58.967 kg 58.967 kg 59.874 kg Microbiology Reports for the Last 24 Hours: Microbiology 11/04/18 12:15 Blood Blood Culture - Preliminary NO GROWTH AFTER 48 HOURS 11/04/18 12:00 Blood Blood Culture - Preliminary NO GROWTH AFTER 48 HOURS 11/04/18 21:00 Sputum - Expectorated Sputum Gram Stain - Final 11/04/18 21:00 Sputum - Expectorated Sputum Sputum Culture - Final Normal Respiratory Danielle Assessment and Plan (1) Acute and chronic respiratory failure with hypoxia Current visit: Yes Status: Acute Category: Medical Code(s): J96.21 - Acute and chronic respiratory failure with hypoxia (2) COPD exacerbation Current visit: Yes Status: Acute Category: Medical Code(s): J44.1 - Chronic obstructive pulmonary disease with (acute) exacerbation (3) Hypertension Current visit: Yes Status: Chronic Category: Medical Code(s): I10 - Essential (primary) hypertension (4) Hyperlipidemia Current visit: Yes Status: Chronic Category: Medical Code(s): E78.5 - Hyperlipidemia, unspecified (5) Type 2 diabetes mellitus Current visit: Yes Status: Chronic Category: Medical Code(s): E11.9 - Type 2 diabetes mellitus without complications (6) COPD (chronic obstructive pulmonary disease) Current visit: Yes Status: Chronic Category: Medical Code(s): J44.9 - Chronic obstructive pulmonary disease, unspecified The patient's infection will respond to the chosen ABx?: Yes Is the patient receiving the right drug, dose, and route?: Yes Could a more targeted ABx be ordered?: No (CULTURES NEGATIVE OF DOCUMENTATION)
--- NOTE | 2018-11-07 09:06 | Progress Note ---
Internal Medicine - PN: Subj *Date: 11/07/18 *Time: 09:03 Interval history: Patient continues to be short of breath. He has some cough. Breathing treatments help. He is able to eat a little. He did not sleep well last night and requests something for sleep. Bowels are moving and he is voiding QS. He ambulates to the bathroom. He feels better sitting in the chair. Exam Vital signs and Labs for Last 24 Hours: Temp Pulse Resp BP Pulse Ox 97.8 F 95 H 20 148/82 H 97 11/07/18 08:00 11/07/18 08:00 11/07/18 08:00 11/07/18 08:00 11/07/18 08:00 I & O for Last 24 hours: Intake & Output 11/04/18 11/05/18 11/06/18 11/07/18 11:59 11:59 11:59 11:59 Intake Total 2559 / 2559 3372 / 3372 2998 / 2998 Output Total 1800 / 1800 2025 / 2025 2250 / 2250 Balance 759 / 759 1347 / 1347 748 / 748 Weight 130 lb 130 lb 130 lb 132 lb Microbiology Reports for the Last 24 Hours: Microbiology 11/04/18 12:15 Blood Blood Culture - Preliminary NO GROWTH AFTER 48 HOURS 11/04/18 12:00 Blood Blood Culture - Preliminary NO GROWTH AFTER 48 HOURS 11/04/18 21:00 Sputum - Expectorated Sputum Gram Stain - Final 11/04/18 21:00 Sputum - Expectorated Sputum Sputum Culture - Final Normal Respiratory Danielle - Constitutional no acute distress - *Routine Respiratory Exam Comments: Bilateral wheezing inspiratory and expiratory with crackles in the left upper lobe. Decreased breath sounds on the right. - *Routine Cardiovascular Exam Present: RRR - *Routine Extremities Exam Absent: edema, calf tenderness Comments: ROSIE holes on - *Routine Neurological Exam Present: alert, oriented X3 Assessment and Plan (1) Acute and chronic respiratory failure with hypoxia Current visit: Yes Status: Acute Category: Medical Code(s): J96.21 - Acute and chronic respiratory failure with hypoxia (2) COPD exacerbation Current visit: Yes Status: Acute Category: Medical Code(s): J44.1 - Chronic obstructive pulmonary disease with (acute) exacerbation (3) Hypertension Current visit: Yes Status: Chronic Category: Medical Code(s): I10 - Essential (primary) hypertension (4) Hyperlipidemia Current visit: Yes Status: Chronic Category: Medical Code(s): E78.5 - Hyperlipidemia, unspecified (5) Type 2 diabetes mellitus Current visit: Yes Status: Chronic Category: Medical Code(s): E11.9 - Type 2 diabetes mellitus without complications (6) COPD (chronic obstructive pulmonary disease) Current visit: Yes Status: Chronic Category: Medical Code(s): J44.9 - Chronic obstructive pulmonary disease, unspecified - Assessment and plan all Dx Assessment and Plan for all problems:: Extra dose of IV Solu-Medrol. Continue with antibiotic. Will decrease IV fluids.
[2018-11-08 06:33] LABS: Calcium 9.1 mg/dL (8.5-10.1)
[2018-11-08 07:31] LABS: Basophils % 0.1 % (0.1-2.0); Eosinophils % 0.1 % (0.1-12.0); Hematocrit 43.7 % (42.0-52.0); Lymphocytes # 1.4 K/mm3 (0.7-4.5); Lymphocytes % 10.6 % (10-50); Mean Corpuscular Volume 91.7 fl (80-94); Mean Platelet Volume 7.5 fl (7.4-10.4); Monocytes # 0.8 K/mm3 (0.1-1.0); Monocytes % 5.9 % (1.7-9.3); Neutrophils # 11.3 K/mm3 (1.8-7.8); Neutrophils % 83.2 % (37.0-80.0); Platelet Count 390 K/mm3 (142-424); Red Blood Count 4.77 M/mm3 (4.60-6.20); White Blood Count 13.5 K/mm3 (4.8-10.8)
--- NOTE | 2018-11-08 09:08 | Progress Note ---
Internal Medicine - PN: Subj *Date: 11/08/18 *Time: 09:05 Interval history: Patient states he is feeling slightly better. He states his breathing is better and he is able to stay off oxygen longer. He plans to ambulate more in the room today. He is eating as usual which is not very much. He drinks fluids satisfactory. He continues to void QS. He denies pain. Exam Vital signs and Labs for Last 24 Hours: Temp Pulse Resp BP Pulse Ox 98.2 F 97 H 18 137/65 90 L 11/08/18 08:00 11/08/18 08:00 11/08/18 08:00 11/08/18 08:00 11/08/18 08:00 Laboratory Results - last 24 hr 11/08/18 05:57: WBC 13.5 H, RBC 4.77, Hgb 14.0 L, Hct 43.7, MCV 91.7, MCH 29.3, MCHC 32.0, RDW 14.0, Plt Count 390, MPV 7.5, Neut % (Auto) 83.2 H, Lymph % (Auto) 10.6, [place] % (Auto) 5.9, Eos % (Auto) 0.1, Baso % (Auto) 0.1, Neut # (Auto) 11.3 H, Lymph # (Auto) 1.4, [place] # (Auto) 0.8, Eos # (Auto) 0.0, Baso # (Auto) 0.0 11/08/18 05:57: Sodium 130 L, Potassium 4.0, Chloride 96 L, Carbon Dioxide 33 H, Anion Gap 5.0, BUN 21 H, Creatinine 0.86, Estimated Creat Clear 57, Estimated GFR 88, Est GFR ( Amer) 106, Glucose 281 H, Calcium 9.1 I & O for Last 24 hours: Intake & Output 11/05/18 11/06/18 11/07/18 11/08/18 11:59 11:59 11:59 11:59 Intake Total 2559 / 2559 3372 / 3372 3148 / 3148 2516 / 2516 Output Total 1800 / 1800 2024 / 2024 2250 / 2250 3900 / 3900 Balance 759 / 759 1347 / 1347 898 / 898 -1384 / -1384 Weight 130 lb 130 lb 132 lb 131 lb 15.993 oz - Constitutional no acute distress Comments: Breathing is unlabored - *Routine Respiratory Exam Comments: Congested cough with inspiratory and expiratory wheezing more audible on the right diminished breath sounds posteriorly - *Routine Cardiovascular Exam Present: RRR - *Routine Abdominal Exam Present: soft, normoactive bowel sounds. Absent: tenderness, distended - *Routine Extremities Exam Absent: edema, calf tenderness - *Routine Neurological Exam Present: alert, oriented X3 Assessment and Plan (1) Acute and chronic respiratory failure with hypoxia Current visit: Yes Status: Acute Category: Medical Code(s): J96.21 - Acute and chronic respiratory failure with hypoxia (2) COPD exacerbation Current visit: Yes Status: Acute Category: Medical Code(s): J44.1 - Chronic obstructive pulmonary disease with (acute) exacerbation (3) Hypertension Current visit: Yes Status: Chronic Category: Medical Code(s): I10 - Essential (primary) hypertension (4) Hyperlipidemia Current visit: Yes Status: Chronic Category: Medical Code(s): E78.5 - Hyperlipidemia, unspecified (5) Type 2 diabetes mellitus Current visit: Yes Status: Chronic Category: Medical Code(s): E11.9 - Type 2 diabetes mellitus without complications (6) COPD (chronic obstructive pulmonary disease) Current visit: Yes Status: Chronic Category: Medical Code(s): J44.9 - Chronic obstructive pulmonary disease, unspecified - Assessment and plan all Dx Assessment and Plan for all problems:: Continue with current care. Activity encouraged.
[2018-11-09 06:18] LABS: Basophils % 0.2 % (0.1-2.0); Eosinophils % 0.1 % (0.1-12.0); Hematocrit 44.4 % (42.0-52.0); Lymphocytes # 1.1 K/mm3 (0.7-4.5); Lymphocytes % 8.5 % (10-50); Mean Corpuscular HGB Conc 31.6 g/dL (31.8-35.4); Mean Corpuscular Volume 90.9 fl (80-94); Monocytes # 0.7 K/mm3 (0.1-1.0); Monocytes % 5.5 % (1.7-9.3); Neutrophils # 11.3 K/mm3 (1.8-7.8); Neutrophils % 85.7 % (37.0-80.0); Platelet Count 395 K/mm3 (142-424); Red Blood Count 4.88 M/mm3 (4.60-6.20); Red Cell Distribution Width 13.8 % (11.5-17.5); White Blood Count 13.2 K/mm3 (4.8-10.8)
[2018-11-09 06:26] LABS: Anion Gap 7.7 mEq/L (5-15); Calcium 8.9 mg/dL (8.5-10.1)
--- NOTE | 2018-11-09 08:12 | Progress Note ---
Internal Medicine - PN: Subj *Date: 11/09/18 *Time: 08:09 Interval history: Patient feels he is a little bit better. He uses his nasal O2 as needed. He still gets dyspneic with any activity. He has an infrequent cough. He is eating as usual. He states he slept as usual. Exam Vital signs and Labs for Last 24 Hours: Temp Pulse Resp BP Pulse Ox 97.5 F L 82 18 157/84 H 86 L 11/09/18 04:00 11/09/18 05:37 11/09/18 04:00 11/09/18 04:00 11/09/18 05:37 Laboratory Results - last 24 hr 11/09/18 05:30: WBC 13.2 H, RBC 4.88, Hgb 14.0 L, Hct 44.4, MCV 90.9, MCH 28.7, MCHC 31.6 L, RDW 13.8, Plt Count 395, MPV 7.0 L, Neut % (Auto) 85.7 H, Lymph % (Auto) 8.5 L, [place] % (Auto) 5.5, Eos % (Auto) 0.1, Baso % (Auto) 0.2, Neut # (Auto) 11.3 H, Lymph # (Auto) 1.1, [place] # (Auto) 0.7, Eos # (Auto) 0.0, Baso # (Auto) 0.0 11/09/18 05:30: Sodium 138, Potassium 4.7, Chloride 103, Carbon Dioxide 32, Anion Gap 7.7, BUN 27 H D, Creatinine 0.82, Estimated Creat Clear 56, Estimated GFR 93, Est GFR ( Amer) 112, Glucose 314 H, Calcium 8.9 I & O for Last 24 hours: Intake & Output 11/06/18 11/07/18 11/08/18 11/09/18 11:59 11:59 11:59 11:59 Intake Total 3372 / 3372 3148 / 3148 2516 / 2516 2450 / 2450 Output Total 2024 / 2024 2250 / 2250 3900 / 3900 1775 / 1775 Balance 1347 / 1347 898 / 898 -1384 / -1384 675 / 675 Weight 130 lb 132 lb 131 lb 15.993 oz 129 lb 8 oz - Constitutional no acute distress Comments: Sitting on bedside after completing breakfast. Appears comfortable. Some dyspnea with talking. - *Routine Respiratory Exam Comments: Soft scattered inspiratory and expiratory wheezing - *Routine Cardiovascular Exam Present: RRR - *Routine Abdominal Exam Present: soft, normoactive bowel sounds. Absent: tenderness - *Routine Extremities Exam Absent: edema, calf tenderness - *Routine Neurological Exam Present: alert, oriented X3 Assessment and Plan (1) Acute and chronic respiratory failure with hypoxia Current visit: Yes Status: Acute Category: Medical Code(s): J96.21 - Acute and chronic respiratory failure with hypoxia (2) COPD exacerbation Current visit: Yes Status: Acute Category: Medical Code(s): J44.1 - Chronic obstructive pulmonary disease with (acute) exacerbation (3) Hypertension Current visit: Yes Status: Chronic Category: Medical Code(s): I10 - Essential (primary) hypertension (4) Hyperlipidemia Current visit: Yes Status: Chronic Category: Medical Code(s): E78.5 - Hyperlipidemia, unspecified (5) Type 2 diabetes mellitus Current visit: Yes Status: Chronic Category: Medical Code(s): E11.9 - Type 2 diabetes mellitus without complications (6) COPD (chronic obstructive pulmonary disease) Current visit: Yes Status: Chronic Category: Medical Code(s): J44.9 - Chronic obstructive pulmonary disease, unspecified - Assessment and plan all Dx Assessment and Plan for all problems:: Continue with current care.
[2018-11-09 10:21] LABS: Lymphocytes % 13 % (10-50); Monocytes % 4 % (2-9); Neutrophils % 83 % (42-76); Total Cells Counted 100
[2018-11-09 10:22] LABS: RBC Morphology Normal
--- NOTE | 2018-11-10 08:14 | Progress Note ---
Internal Medicine - PN: Subj *Date: 11/10/18 *Time: 08:12 Interval history: Patient states he is feeling better today. He has less shortness of breath and has been off of his oxygen since midnight. His oxygen is 90 to 93% on room air this morning. He states he has been up walking the hallways. He has not been eating or sleeping very well, but he states this is normal for him at home. Exam Vital signs and Labs for Last 24 Hours: Temp Pulse Resp BP Pulse Ox 97.4 F L 71 19 133/67 93 L 11/10/18 04:00 11/10/18 05:50 11/10/18 04:00 11/10/18 04:00 11/10/18 05:50 Laboratory Results - last 24 hr 11/04/18 13:23: Legionella pneumophila Ab <0.91 11/04/18 19:10: Fluid Culture Not indicated, S. pneumoniae Antigen Negative, S. pneumoniae Ag Source Urine, Organism ID Not indicated. 11/09/18 05:30: Total Counted 100, Neutrophils % (Manual) 83 H, Lymphocytes % (Manual) 13, Monocytes % (Manual) 4, Platelet Estimate Normal, RBC Morphology Normal I & O for Last 24 hours: Intake & Output 11/07/18 11/08/18 11/09/18 11/10/18 11:59 11:59 11:59 11:59 Intake Total 3148 / 3148 2516 / 2516 2810 / 2810 1580 / 1580 Output Total 2250 / 2250 3900 / 3900 2024 / 2024 1000 / 1000 Balance 898 / 898 -1384 / -1384 785 / 785 580 / 580 Weight 132 lb 131 lb 15.993 oz 129 lb 8 oz 129 lb 8 oz Microbiology Reports for the Last 24 Hours: Microbiology 11/04/18 12:15 Blood Blood Culture - Final NO GROWTH AFTER 5 DAYS 11/04/18 12:00 Blood Blood Culture - Final NO GROWTH AFTER 5 DAYS - Constitutional no acute distress - *Routine Respiratory Exam Present: decreased breath sounds, wheezes (faint but improved) - *Routine Cardiovascular Exam Present: RRR - *Routine Abdominal Exam Present: soft, normoactive bowel sounds. Absent: tenderness - *Routine Extremities Exam Absent: cyanosis, clubbing, edema - *Routine Skin Exam Present: warm. Absent: rash - *Routine Neurological Exam Present: alert, oriented X3 Assessment and Plan (1) Acute and chronic respiratory failure with hypoxia Current visit: Yes Status: Acute Category: Medical Code(s): J96.21 - Acute and chronic respiratory failure with hypoxia (2) COPD exacerbation Current visit: Yes Status: Acute Category: Medical Code(s): J44.1 - Chronic obstructive pulmonary disease with (acute) exacerbation (3) Hypertension Current visit: Yes Status: Chronic Category: Medical Code(s): I10 - Essential (primary) hypertension (4) Hyperlipidemia Current visit: Yes Status: Chronic Category: Medical Code(s): E78.5 - Hyperlipidemia, unspecified (5) Type 2 diabetes mellitus Current visit: Yes Status: Chronic Category: Medical Code(s): E11.9 - Type 2 diabetes mellitus without complications (6) COPD (chronic obstructive pulmonary disease) Current visit: Yes Status: Chronic Category: Medical Code(s): J44.9 - Chronic obstructive pulmonary disease, unspecified - Assessment and plan all Dx Assessment and Plan for all problems:: Patient can possibly be discharged today. Will discuss with Dr. connell.
--- NOTE | 2018-11-10 15:34 | Cardiology Report ---
APPROVED REPORT EXAM: Comprehensive 2D, Doppler, and color-flow Echocardiogram Video Operator: Mona Proctor CRT Ht: 5 ft 10 in Wt: 129lbs BSA: 1.73 BP: 134/67 mmHg Indications: Chest Pain, COPD, Shortness of Breath, Hyperlipidemia, Hypertension/HDD Left Ventricle Left atrium is mildly enlarged, left ventricle is normal size, there is mild concentric left ventricular hypertrophy, visually estimated ejection fraction 55% with no regional wall motion abnormality. Grade 1 diastolic dysfunction seen with tissue Doppler evidence of raise left atrial pressure. Right Ventricle Right atrium and right ventricular normal size and contractility. Aortic Valve The aortic valve is thickened and calcified leaflet continue to display good mobility, there is no aortic stenosis or aortic insufficiency. Mitral Valve Mitral valve has mild mitral annular calcification, leaflets are minimally thickened. There is no mitral stenosis, there is mild mitral regurgitation. Tricuspid Valve Tricuspid valve is grossly normal, there is no tricuspid stenosis, there is mild tricuspid regurgitation, tricuspid regurgitation jet velocity is inadequate for calculation of the right ventricular systolic pressure Pulmonic Valve Pulmonic valve is minimally thickened and calcified there is no pulmonic stenosis, there is mild pulmonic insufficiency. Great Vessels Aortic root is normal size. Pericardium No significant pericardial effusion noted 2D Dimensions LVOT 2.00 cm (M/F) 1.5-2.5 M-Mode Dimensions RVDd 1.80 cm (0.9-2.6)LA Diam 3.90 cm (1.9-4.0) LVDd 4.60 cm (3.5-5.7)Ao Diam 3.30 cm (2.0-3.7) LVDs 3.00 cm (3.5-5.7)AV Cusp 1.80 cm (1.5-2.6) IVSd 1.30 cm (0.6-1.1)PWd 1.00 cm (0.6-1.1) EF (Teich) 64.00% FS 34.80% EDV (Teich) 97.30 mLESV (Teich) 35.00 mL LV Diastology E/A Ratio 1.10MED E' 4.48 (< 7 cm/sec) E'/MED E' Ratio23.70 (>14)LAT E' 4.09 (<10 cm/sec) E/LAT E' Ratio 25.90 (>14) Aortic Valve AoV Peak Brendan. 90.10 (50-130 cm/s)AO Peak GR. 3.00 mmHg Mitral Valve MV E Max Brendan. 106.00 (40-130 cm/s)MV A Velocity 94.80 (40-130 cm/s) E/A Ratio 1.10 Pulmonary Valve PA Accel Time 165.00 (>120 msec) Tricuspid Valve TR P. [id number] cm/sRAP Estimate 10.00 mmHg RVSP 26.00 mmHg Conclusion 1. Mildly enlarged left atrium, normal left ventricular size, mild concentric left ventricular hypertrophy, visually estimated ejection fraction 55% with no regional wall motion abnormality. Grade 1 diastolic dysfunction seen with tissue Doppler evidence of raise left atrial pressure. 2. Mild mitral and tricuspid regurgitation. 3. No significant pericardial effusion noted. Electronically signed by : Bennie Mason, 11/10/2018 15:33:44
--- NOTE | 2018-11-13 21:38 | Discharge Summary ---
General - General Admission date:: 11/04/18 Discharge date: 11/10/18 HPI HPI: Mr. Rivera is a 73-year-old male with a history of COPD, type 2 diabetes, hypertension, and hyperlipidemia who was seen in the office [facility] on 11/02/2018 for COPD exacerbation. At that time he was started on prednisone and Levaquin. He states that shortness of breath progressively got worse to the point where he had to begin wearing oxygen at 2 L/min at home. He has been coughing of yellow sputum and has been having chills. He returned to the office today on 11/04/2018 and his oxygen was 96% on 2 L. He was having some burning in his chest and was admitted for acute and chronic respiratory failure with hypoxia as well as a COPD exacerbation failing outpatient treatment. Hospital Course Hospital Course: The patient had a chest x-ray revealing COPD and a possible pneumonia in the right upper lobe. He was started on oxygen, nebs, IV steroids, and IV antibiotics after failing outpatient therapy. Sputum and blood cultures were ordered. His sputum returned with normal respiratory rito and his blood cultures were negative. His steroids and oxygen were weaned. His IV fluids were decreased. He was able to ambulate around the room and began eating and drinking better. He did get dyspneic with any activity. An echo was ordered showing an EF of 55% with grade 1 diastolic dysfunction. He began feeling better and was able to be weaned off of his oxygen with sats in the 90s on room air. His electrolytes improved and his white count continued to stay elevated likely due to steroids. He was stable to be discharged home on Zithromax 500 mg Wednesday, Wednesday, and Wednesday and he will continue on prednisone 20 mg a day for 3 days and then decrease to 10 mg daily. He did request pulmonary rehab as an outpatient. He will follow-up with Dr. Roach in a week. Objective Vital signs: Temp Pulse Resp BP Pulse Ox 98.4 F 89 20 146/69 H 93 L 11/10/18 08:00 11/10/18 08:00 11/10/18 08:00 11/10/18 08:00 11/10/18 08:00 Narrative: - Constitutional mild distress (Dyspneic) - *Routine HEENT Exam Head: Present: normocephalic Eye: Present: EOMI, PERRL ENT: Present: mucous membranes dry - *Routine Neck Exam Present: supple. Absent: lymphadenopathy - *Routine Respiratory Exam Present: decreased breath sounds, wheezes (Bilateral). Absent: rales - *Routine Cardiovascular Exam Present: RRR - *Routine Abdominal Exam Present: soft, normoactive bowel sounds. Absent: tenderness - *Routine Extremities Exam Absent: cyanosis, clubbing, edema - *Routine Skin Exam Present: warm. Absent: rash - *Routine Neurological Exam Present: alert, oriented X3 DS: Diagnosis - Discharge Diagnosis (1) Acute and chronic respiratory failure with hypoxia Status: Acute (2) COPD exacerbation Status: Acute (3) Hypertension Status: Chronic (4) Hyperlipidemia Status: Chronic (5) Type 2 diabetes mellitus Status: Chronic (6) COPD (chronic obstructive pulmonary disease) Status: Chronic Discharge Plan - Patient Discharge Instructions ACTIVITY: Continue current activity DIET: advance to your usual diet Patient Instructions: High Blood Pressure, DI for Chronic Obstructive Pulmonary Disease, DI for Respiratory Failure, Respiratory Failure - Follow up Plan Follow up with: Leonid Roach MD [Primary Care Provider] - 11/16/18 2:45 pm Disposition: Home, Self-Group Home Medications: Home Medications Medication Instructions Recorded Confirmed Type albuterol sulfate 1.25 mg/3 mL 1.25 mg INHALATION Q6HP PRN 02/18/18 11/04/18 History solution for nebulization amlodipine 5 mg tablet 5 mg PO DAILY 30 Days tab 02/18/18 11/04/18 History aspirin 325 mg tablet 325 mg PO DAILY 02/18/18 11/04/18 History atorvastatin 40 mg tablet 40 mg PO HS 30 Days tab 02/18/18 11/04/18 History coenzyme Q10 75 mg capsule 75 mg PO DAILY 02/18/18 11/04/18 History gabapentin 300 mg capsule 300 mg PO TID 30 Days cap 02/18/18 11/04/18 History metformin 1,000 mg tablet 1,000 mg PO BID 90 Days tab 02/18/18 11/04/18 History metoprolol tartrate 25 mg tablet 12.5 mg PO BID 30 Days tab 02/18/18 11/04/18 History omeprazole 40 mg capsule,delayed 40 mg PO DAILY 90 Days cap 02/18/18 11/04/18 History release Fluticasone Propionate [Flonase 1 spray INTRANASAL DAILY 11/04/18 11/04/18 History Allergy Relief NS] Ipratropium [place] [Atrovent 0.5 mg IH Q6HP PRN 11/04/18 11/04/18 History 0.5mg/2.5mL neb] Azithromycin [Azithromycin 500mg 500 mg PO DAILY #3 tab 11/10/18 Rx Tab] predniSONE [Deltasone 10mg tablet] 10 mg PO DAILY 30 Days #30 tab 11/10/18 Rx Prescriptions/Medication Reconciliation: New predniSONE [Deltasone 10mg tablet] 10 mg PO DAILY 30 Days #30 tab Azithromycin [Azithromycin 500mg Tab] 500 mg PO DAILY #3 tab Continued amlodipine 5 mg tablet 5 mg PO DAILY 30 Days tab atorvastatin 40 mg tablet 40 mg PO HS 30 Days tab metoprolol tartrate 25 mg tablet 12.5 mg PO BID 30 Days tab metformin 1,000 mg tablet 1,000 mg PO BID 90 Days tab aspirin 325 mg tablet 325 mg PO DAILY coenzyme Q10 75 mg capsule 75 mg PO DAILY albuterol sulfate 1.25 mg/3 mL solution for nebulization 1.25 mg INHALATION Q6HP PRN PRN Reason: BREATHING gabapentin 300 mg capsule 300 mg PO TID 30 Days cap omeprazole 40 mg capsule,delayed release 40 mg PO DAILY 90 Days cap Ipratropium [place] [Atrovent 0.5mg/2.5mL neb] 0.5 mg IH Q6HP PRN PRN Reason: BREATHING Fluticasone Propionate [Flonase Allergy Relief NS] 1 spray INTRANASAL DAILY - Problem Reconciliation Problems Reviewed?: Yes
== END 2018-11-10 14:05 | disposition home or self-care (01) | DRG 190 ==
LOC: 2ND 11:08
PROVIDERS: ADMIT Emergency Medicine; ATTEND Family Medicine
CPT/HCPCS: 36415; 71020; 71046; 80048; 80053; 83605; 85007; 85025; 86609; 86713; 86738; 87040; 87070; 87205; 87899; 93306; 94640; 94760; 94761; 97161; J1956

== ENCOUNTER → 2018-11-21 11:09 | Outpatient (CLI) | payer MEDICARE, OTHER, SELFPAY | PROVIDERS: PCP Family Medicine; Visit Provider Family Medicine | DX: R06.02 Shortness of breath (principal) | CPT/HCPCS: 94060; 94640; 94726; 94729 ==

== ENCOUNTER 2018-12-01 14:29 | Outpatient (RCR) | payer MEDICARE, OTHER, SELFPAY | END 2019-02-20 13:28 | disposition home or self-care (01) | LOC: PT 14:29 | PROVIDERS: Visit Provider Family Medicine | DX: I25.10 Atherosclerotic heart disease of native coronary artery without angina pectoris (principal) | CPT/HCPCS: G0424 ==

== ENCOUNTER → 2019-04-19 14:19 | Outpatient (CLI) | payer MEDICARE, OTHER, SELFPAY ==
--- NOTE | 2019-04-19 14:23 | US_ITS ---
PROCEDURE: US CHEST CLINICAL INDICATION: LYMPHOMA OF TORSO Palpable nodule lateral chest COMPARISON: No exams were available for comparison FINDINGS: There is a circumscribed hypoechoic nodule over the left lateral chest in the area clinical abnormality 1.9 by 0.99 by 1.4 centimeters with internal increased color Doppler blood flow. Hyperemic neoplasm/lymph node is suspected. Other etiology nodule is not excluded. There is no benign appearing cyst. IMPRESSION: Solid hyperemic nodule correlating with palpable abnormality. Neoplastic etiology must be considered. Dictated by: Be Mendez 04/19/2019 16:11 Electronically signed by Be Mendez in [place] 04/19/2019 16:11
== END ==
PROVIDERS: PCP Family Medicine; Visit Provider Family Medicine
DX: D17.1 Benign lipomatous neoplasm of skin and subcutaneous tissue of trunk (principal)
CPT/HCPCS: 76604

== ENCOUNTER → 2019-04-21 14:34 | Outpatient (CLI) | payer MEDICARE, OTHER, SELFPAY ==
[2019-04-21 15:04] LABS: Basophils # 0.1 K/mm3 (0-0.2); Basophils % 0.8 % (0.1-2.0); Eosinophils # 0.5 K/mm3 (0.0-0.4); Eosinophils % 5.7 % (0.1-12.0); Hemoglobin 13.9 g/dL (14.1-18.0); Lymphocytes # 3.4 K/mm3 (0.7-4.5); Lymphocytes % 36.4 % (10-50); Mean Corpuscular HGB Conc 30.8 g/dL (31.8-35.4); Mean Corpuscular Hemoglobin 28.1 pg (27.0-31.2); Mean Corpuscular Volume 91.1 fl (80-94); Mean Platelet Volume 8.2 fl (7.4-10.4); Monocytes # 0.5 K/mm3 (0.1-1.0); Monocytes % 5.6 % (1.7-9.3); Neutrophils # 4.8 K/mm3 (1.8-7.8); Neutrophils % 51.5 % (37.0-80.0); Platelet Count 399 K/mm3 (142-424); Red Blood Count 4.94 M/mm3 (4.60-6.20); Red Cell Distribution Width 14.3 % (11.5-17.5); White Blood Count 9.3 K/mm3 (4.8-10.8)
[2019-04-21 16:20] LABS: Anion Gap 13.5 mEq/L (5-15); Blood Urea Nitrogen 13 mg/dL (7-18); Calcium 9.5 mg/dL (8.5-10.1); Carbon Dioxide 29 mmol/L (21.0-32.0); Chloride 104 mmol/L (98-107); Creatinine,Serum 0.99 mg/dL (0.70-1.30); Estimated Glomerular Filt Rate 75 ml/min (>60); GFR (African American) 90 ML/MIN (>60); Glucose 168 mg/dL (74-106); Potassium 4.5 mmoL/L (3.5-5.1); Sodium 142 mmol/L (136-145)
== END ==
PROVIDERS: Visit Provider Surgery
DX: J44.1 Chronic obstructive pulmonary disease with (acute) exacerbation (principal); R22.2 Localized swelling, mass and lump, trunk
CPT/HCPCS: 36415; 80048; 85025

== ENCOUNTER → 2019-05-11 12:21 | Outpatient (CLI) | payer MEDICARE, OTHER, SELFPAY ==
--- NOTE | 2019-05-11 12:26 | XR_ITS ---
PROCEDURE: XR CHEST 2V CLINICAL HISTORY: COUGH COPD, past smoker, cough COMPARISON: CXR2V XR chest 2V from 04/27/2017 [id number] XR ribs LT min 3V w CXR1V from 07/12/[address] chest wo/w con from 07/12/2018 Chest from 11/04/2018 FINDINGS: The cardiomediastinal silhouette and pulmonary vascularity are within normal limits. There is hyperinflation with some eventration of the hemidiaphragms consistent with COPD. No lobar consolidation or collapse. No acute bony abnormalities. IMPRESSION: COPD. No acute finding Dictated by: Donavan Brito MD 05/11/2019 12:47 Electronically signed by Donavan Brito MD in [place] 05/11/2019 12:47
== END ==
PROVIDERS: PCP Family Medicine; Visit Provider Family Medicine
DX: R05 Cough (principal)
CPT/HCPCS: 71046

== ENCOUNTER → 2019-10-03 10:49 | Outpatient (CLI) | payer MEDICARE, OTHER, SELFPAY ==
[2019-10-03 11:23] LABS: Basophils # 0.1 K/mm3 (0-0.2); Basophils % 0.9 % (0.1-2.0); Eosinophils # 0.3 K/mm3 (0.0-0.4); Eosinophils % 3.8 % (0.1-12.0); Hematocrit 42.2 % (42.0-52.0); Hemoglobin 14.2 g/dL (14.1-18.0); Lymphocytes # 2.9 K/mm3 (0.7-4.5); Lymphocytes % 36.5 % (10-50); Mean Corpuscular HGB Conc 33.7 g/dL (31.8-35.4); Mean Corpuscular Volume 88.9 fl (80-94); Mean Platelet Volume 8.4 fl (7.4-10.4); Monocytes # 0.4 K/mm3 (0.1-1.0); Neutrophils # 4.3 K/mm3 (1.8-7.8); Neutrophils % 53.7 % (37.0-80.0); Platelet Count 342 K/mm3 (142-424); Red Blood Count 4.74 M/mm3 (4.60-6.20); Red Cell Distribution Width 13.9 % (11.5-17.5); White Blood Count 7.9 K/mm3 (4.8-10.8)
[2019-10-03 11:43] LABS: Anion Gap 11.9 mEq/L (5-15); Blood Urea Nitrogen 15 mg/dl (9-20); Calcium 9.4 mg/dl (8.4-10.2); Carbon Dioxide 32 mmol/L (22.0-30.0); Chloride 97 mmol/L (98-107); Estimated Glomerular Filt Rate 95 ml/min (>60); GFR (African American) 115 ML/MIN (>60); Glucose 263 mg/dl (74-100); Potassium 4.9 mmoL/L (3.5-5.1); Sodium 136 mmol/L (136-145)
[2019-10-03 13:29] LABS: Coronavirus 19 IgG Antibody Negative (Negative); Coronavirus 19 IgM Antibody Negative (Negative)
== END ==
PROVIDERS: Visit Provider Surgery
DX: L98.9 Disorder of the skin and subcutaneous tissue, unspecified (principal); Z01.818 Encounter for other preprocedural examination
CPT/HCPCS: 36415; 80048; 85025; 86328

== ENCOUNTER 2019-10-04 08:38 | Day surgery (SDC) | payer MEDICARE, OTHER, SELFPAY ==
[2019-10-03 10:21] VITALS: BMI 19.2
[2019-10-04] VITALS (11 sets, daily range): BP systolic 136–186; BP diastolic 75–106; PULSE 77–114; RESP 12–22; TEMP 36.3–36.7; O2SAT 95–100
[2019-10-04 09:18] LABS: POC Glucose,Bedside 118 (70-110)
--- NOTE | 2019-10-04 09:29 | P.PN_ITS ---
[facility] Anesthesia Checklist - Patient Identification Patient Identification: Arm Band, Verbal (Name & ) - Structural Data Admitted From: Home Planned Operative Procedure/s: ex chest lesion Consent for Planned Operative Procedure(s) Verified: Yes Verified Documents: History and Physical - NPO Status Verified Time NPO: 00:00 - Chart Verification Results Verified: CBC, BMP - Additional verifications Patient : No Anesthesia Reactions: No Hx Blood Transfusions: No Blood Transfusion Reaction: No Cephalosporin Allergy: No Previous Colonoscopy: No - Cardiovascular Assessment Heart Sounds: S1 & S2 Pulse Strength: Baseline Pulse Rhythm: Regular Peripheral Edema: No - Airway Assessment C-Spine Mobility Assessed: Yes TMJ Mobility Assessed: Yes Dentition: Poor Dentition - Neurological Assessment Level of Consciousness: Awake, Alert, Appropriate Hx Seizures: No Numbness or tingling in extremities: No - Anesthesia Plan Anesthesia Risk discussed: Yes Anesthesia Plan: Verified ASA Class: III Anesthesia Type: General [facility] History I have reviewed the patient's past medical history: Yes Medical History: Reports:: Chronic Obstructive Pulmonary Disease (COPD), Diabetes Mellitus Type 2, Hyperlipidemia, Hypertension Denies:: Cancer, Diabetes Mellitus Type 1, Internal Pacemaker, MRSA, Seizures *Have you ever received a pneumonia vaccine?: Yes *Have you received a flu vaccine this season?: No Other Medical History: Reports: Arthritis. Denies: Blood Transfusion Reaction Anesthesia experience/problems:: none Laterality Cases: Bilateral: Tonsillectomy Other Surgeries: Yes: Colonoscopy, Hernia Repair, Other. No: Pacemaker Amputation: No Fractures: No - *Social History Last grade of school completed: High school graduate Smoking Status: Never smoker Tobacco Type: cigarettes Alcohol Intake: never Substance Use Type: denies use *Occupational Status:: retired Housing: house Household Members: spouse *Travel in the last 8 weeks: None Family Hx:: Cancer, Hypertension, Hyperlipidemia
--- NOTE | 2019-10-04 10:09 | P.OP_ITS ---
Date of procedure: 10/04/19 Pre-op Diagnosis:: Left chest wall lesion Post-op Diagnosis:: Same Procedure performed:: Excision of left chest wall lesion (excisional length approximately 3 cm with intermediate complexity closure) Surgeon:: Davey Turner MD RN PRIVATE DUTY:: Les Hendrickson Anesthesia: LMA Estimated blood loss (mL): 5 Clinical Note:: Patient presents for excision of chest wall lesion. He is a pleasant 73-year-old male originally referred by Dr. Zhou Roach for definitive excision of left chest wall lesion. I had seen him several months ago. He has had a knot on the left anterior lateral chest present for about 2-1/2 years. However, over the past 12 months that has somewhat increased in size and become tender. On 04/17/2019 attempt was made for excision under local anesthetic by Dr. Roach but he had significant pain and did not tolerate removal. He was therefore sent for surgical consultation for this to be removed under anesthesia. He did undergo an ultrasound of the area in the interim and this reveals findings of a circumscribed hypoechoic nodule measuring 1.9 x 1.4 cm with increased Doppler flow. It was stated that neoplastic etiology must be considered. I had scheduled him for removal under anesthesia given the severe pain from the lesion. He was scheduled for surgery but had to cancel due to acute bronchitis and then postponed due to the COVID pandemic. I did inform him that this could be neoplastic based on the ultrasound and physical exam findings. This also could be a nerve sheath lesion due to radiation the pain around the anterior chest and I informed him that if this is excised he could have a persistent area of numbness which he understands and this possibility is acceptable to him. Of note, the patient is due for follow-up surveillance colonoscopy. 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 He was positioned in a supine position. Anesthesia was induced via LMA. Area was prepped and draped in the standard surgical fashion. Skin was marked the skin marker for planned incision along skin lines. Skin incision was performed approximately 3 cm in length. Dissection was carried down through superficial subcutaneous tissues. Fascia was incised. Dissection was carried down identifying the lesion. This appeared to be cystic. Meticulous careful dissection was carried out around the lesion. There appeared to be involvement of nerve. This was carefully dissected free from the lesion. There were some branches to the lesion however which were sharply divided after micro hemoclips were applied. Lesion was removed intact in its entirety. It was sent off as specimen labeled chest wall lesion. There was good hemostasis. Local anesthetic was infiltrated into the region of the nerve and deep and superficial tissues. Fascia was closed with a couple of interrupted 3-0 Vicryl sutures. Subdermal tissues were reapproximated with 3-0 Vicryl. Skin was closed with 4-0 Monocryl in a subcuticular fashion. Clean dry sterile dressing was applied. Condition: stable Disposition: PACU Specimens:: Chest wall lesion Complications:: None immediately apparent
--- NOTE | 2019-10-04 10:16 | HMH.ANESI ---
[facility] Anesthesia Record Part I Intake, IV Amount: 1,500 Estimated blood loss (mL): 0 Urine output (mL): 0 Blood Pressure: 180/104 SaO2: 100 Pulse Rate: 104 Respiratory Rate: 12 Temperature: 97.3 F Patient is:: Awake, Stable Stable to PACU at:: 10:15
--- NOTE | 2019-10-04 15:38 | HMH.ANESII ---
[facility] Anesthesia Record Part II Discharge Time: 10:52 Destination: Surgical Day Care (OP Surgery) PACU nurse assessment reviewed?: Yes Patient Condition:: Good Anesthesia Complications:: None Swallowing reflex intact?: Yes Cyanosis?: No Blood Pressure: 155/86 Pulse Rate: 87 Temperature: 97.7 F Mental Status: Alert & Oriented Pain level:: 0 Nausea and/or vomitting:: None Intake, IV Amount: 0
== END 2019-10-04 11:25 | disposition home or self-care (01) ==
LOC: OR 08:40
PROVIDERS: PCP Family Medicine; Visit Provider Surgery
PROC: (CPT 11403; principal; 2019-10-04 10:15)
DX: D23.5 Other benign neoplasm of skin of trunk; R20.8 Other disturbances of skin sensation; E11.9 Type 2 diabetes mellitus without complications; J44.9 Chronic obstructive pulmonary disease, unspecified; E78.5 Hyperlipidemia, unspecified; I10 Essential (primary) hypertension; M19.90 Unspecified osteoarthritis, unspecified site; Z90.89 Acquired absence of other organs; Z80.9 Family history of malignant neoplasm, unspecified; Z83.438 Family history of other disorder of lipoprotein metabolism and other lipidemia; Z82.49 Family history of ischemic heart disease and other diseases of the circulatory system; Z79.899 Other long term (current) drug therapy
CPT/HCPCS: 11403; 12031; 82962; 88305; 96374; J2405

== ENCOUNTER → 2019-12-18 10:37 | Outpatient (CLI) | payer MEDICARE, OTHER, SELFPAY ==
[2019-12-18 12:22] LABS: Coronavirus 19 IgG Antibody Negative (Negative); Coronavirus 19 IgM Antibody Negative (Negative)
== END ==
PROVIDERS: Visit Provider Ophthalmology
DX: Z01.89 Encounter for other specified special examinations (principal); H26.9 Unspecified cataract
CPT/HCPCS: 36415; 86328

== ENCOUNTER 2019-12-19 06:57 | Day surgery (SDC) | payer MEDICARE, OTHER, SELFPAY ==
[2019-12-14 11:00] VITALS: BMI 18.4
[2019-12-19 07:51] VITALS: PULSE 72; RESP 22; TEMP 36.1; O2SAT 96
[2019-12-19 08:10] LABS: POC Glucose,Bedside 110 (70-110)
[2019-12-19 08:47] VITALS: BP 187/88; PULSE 87; RESP 16; O2SAT 99
[2019-12-19 08:52] VITALS: BP 161/77; PULSE 89; RESP 16; O2SAT 99
[2019-12-19 08:57] VITALS: BP 171/81; PULSE 86; RESP 16; O2SAT 100
[2019-12-19 09:02] VITALS: BP 159/80; PULSE 87; RESP 16; O2SAT 100
[2019-12-19 09:06] VITALS: BP 145/93; PULSE 93; RESP 18; TEMP 36.6; O2SAT 98
== END 2019-12-19 09:20 | disposition home or self-care (01) ==
LOC: OR 06:58
PROVIDERS: PCP Family Medicine; Visit Provider Ophthalmology
DX: H25.813 Combined forms of age-related cataract, bilateral (principal); H02.839 Dermatochalasis of unspecified eye, unspecified eyelid; J44.9 Chronic obstructive pulmonary disease, unspecified; M19.90 Unspecified osteoarthritis, unspecified site; Z86.73 Personal history of transient ischemic attack (TIA), and cerebral infarction without residual deficits; Z79.82 Long term (current) use of aspirin; Z79.84 Long term (current) use of oral hypoglycemic drugs; Z79.899 Other long term (current) drug therapy; E11.9 Type 2 diabetes mellitus without complications; E78.5 Hyperlipidemia, unspecified; I10 Essential (primary) hypertension
CPT/HCPCS: 66984; 82962; V2632

== ENCOUNTER 2020-01-10 07:43 | Observation (INO) | payer MEDICARE, OTHER, SELFPAY ==
[2020-01-10] VITALS (22 sets, daily range): BP systolic 125–188; BP diastolic 76–140; PULSE 94–120; RESP 15–24; TEMP 36.5–36.8; O2SAT 93–98; BMI 18.4; BMI 17.9; BMI 18.1
--- NOTE | 2020-01-10 07:56 | ECG_ITS ---
APPROVED REPORT Exam: Resting ECG HR:111 bpm ECG Measurements Heart Rate 111 AXES DC 132 P 85 QRSd 86 QRS 119 QT 316 T 76 QTc 429 Conclusion Sinus tachycardia Bi-atrial abnormality Right axis deviation Pulmonary disease pattern Abnormal ECG Electronically signed by : Jhonny Young, 01/14/2020 09:48:51
--- NOTE | 2020-01-10 07:59 | XR_ITS ---
PROCEDURE: XR CHEST PORTABLE CLINICAL HISTORY: SOA COMPARISON: No exams were available for comparison FINDINGS: The cardiomediastinal silhouette and pulmonary vascularity are within normal limits. Is. Nodularity noted in the left midlung overlying the 5th rib anteriorly which may be due to nipple shadow. No acute bony abnormalities. There are 2 small metallic densities overlying the lower chest wall laterally and could be something upon or within the patient. IMPRESSION: COPD. No acute finding Dictated by: Donavan Brito MD 01/10/2020 08:38 Donavan Brito MD in [place] 01/10/2020 08:38
--- NOTE | 2020-01-10 08:01 | HMH.EDSOB ---
ED Disposition Clinical Impression: Acute exacerbation of chronic obstructive airways disease, COPD exacerbation Disposition: Admitted As Inpatient Condition on Discharge: Fair Referrals: Leonid Roach MD [Primary Care Provider] - - Critical Care Critical Care Time: No Attestation: On , the high probability of a clinically significant, sudden or life threatening deterioration of the following system(s) required my full and direct attention, intervention and personal management. The time I documented below is in addition to time spent performing reported procedures but includes the following listed in this critical care notation. Medical Decision Making - Medical Records Medical records reviewed: Yes: I reviewed the patient's medical records. - Edwin Inquiry Pt receiving controlled substance: No Vital Signs: 01/10/20 07:53 01/10/20 08:00 01/10/20 08:54 Pulse Rate Pulse Rate [Right Brachial] 114 H 120 H 103 H Respiratory Rate 24 Blood Pressure [Right Arm] 176/140 H 188/105 H 158/92 H Blood Pressure Mean [Right Arm] 152 132 114 Blood Pressure Source [Right Arm] Automatic Cuff Automatic Cuff Automatic Cuff Blood Pressure Position [Right Arm] Sitting Sitting Sitting 02 Sat by Pulse Oximetry 94 L 96 97 Oxygen Delivery Method Nasal Cannula Nasal Cannula BiPAP Oxygen Flow Rate (LPM) 2 2 01/10/20 09:00 01/10/20 09:05 Pulse Rate 111 H Pulse Rate [Right Brachial] 101 H Respiratory Rate Blood Pressure [Right Arm] 144/90 H Blood Pressure Mean [Right Arm] 108 Blood Pressure Source [Right Arm] Automatic Cuff Blood Pressure Position [Right Arm] Sitting 02 Sat by Pulse Oximetry 96 96 Oxygen Delivery Method BiPAP Nasal Cannula Oxygen Flow Rate (LPM) 2 - Lab Data Lab Results 01/10/20 07:50: WBC 13.0 H, RBC 5.25, Hgb 15.3, Hct 48.8, MCV 93.0, MCH 29.1, MCHC 31.3 L, RDW 13.9, Plt Count 394, MPV 7.2 L, Neut % (Auto) 66.0, Lymph % (Auto) 21.2, [place] % (Auto) 5.0, Eos % (Auto) 6.8, Baso % (Auto) 0.8, Neut # (Auto) 8.6 H, Lymph # (Auto) 2.8, [place] # (Auto) 0.7, Eos # (Auto) 0.9 H, Baso # (Auto) 0.1 01/10/20 07:50: Sodium 142, Potassium 4.6, Chloride 97 L, Carbon Dioxide 37 H, Anion Gap 12.6, BUN 12, Creatinine 0.80, Estimated Creat Clear 54, Estimated GFR 95, Est GFR ( Amer) 115, Glucose 168 H, Calcium 10.2, Troponin I < 0.01 01/10/20 08:36: Specimen Source L radial, O2 % 2lpm, ABG pH 7.36, ABG pCO2 53.5 H, ABG pO2 85.4, ABG HCO3 29.5 H, ABG Total CO2 31.1 H, ABG O2 Saturation 96, ABG Base Excess 4.0 H, [place] Test Acceptable 01/10/20 08:37: Urine Color Yellow, Urine Appearance Clear, Urine pH 7.5, Ur Specific [place] 1.015, Urine Protein Negative, Urine Glucose (UA) Negative, Urine Ketones Negative, Urine Blood Trace-i, Urine Nitrate Negative, Urine Bilirubin Negative, Urine Urobilinogen 0.2, Ur Leukocyte Esterase Negative, Urine RBC Occasional, Urine WBC 3-5, Ur Squamous Epith Cells Occasional Result diagrams: 01/10/20 07:50 01/10/20 07:50 Orders (Tests/Meds): ED MEDICATIONS Generic Name Dose Route Start Last Admin Trade Name Freq PRN Reason Stop Dose Admin Azithromycin 500 mg/ Sodium 250 mls @ 250 mls/hr 01/10/20 08:15 01/10/20 09:02 Chloride IV 01/24/20 08:14 250 mls/hr Q24H SHAUNA Administration Protocol Ceftriaxone Sodium 2 gm/ 100 mls @ 200 mls/hr 01/10/20 08:30 01/10/20 08:19 Sodium Chloride IV 01/24/20 08:29 200 mls/hr Q24H SHAUNA Administration Protocol Sodium Chloride 3 ml 01/10/20 09:13 Sodium Chloride 3% 15ml [facility] 02/09/20 09:12 ONCE PRN INDUCE SPUTUM COLLECTION Discontinued Medications Generic Name Dose Route Start Last Admin Trade Name Freq PRN Reason Stop Dose Admin Albuterol/Ipratropium 3 ml 01/10/20 09:00 Albuterol/Ipratropium 3 Ml [facility] 01/14/20 09:01 DIRECTED SHAUNA Albuterol/Ipratropium 15 ml 10/14/20 09:15 01/10/20 09:12 Albuterol/Ipratropium 3 Ml Neb I[facility] 01/10/20 09:16 15 ml ONCE ONE Administra
[2020-01-10 08:04] LABS: Basophils # 0.1 K/mm3 (0-0.2); Basophils % 0.8 % (0.1-2.0); Eosinophils # 0.9 K/mm3 (0.0-0.4); Eosinophils % 6.8 % (0.1-12.0); Hematocrit 48.8 % (42.0-52.0); Hemoglobin 15.3 g/dL (14.1-18.0); Lymphocytes # 2.8 K/mm3 (0.7-4.5); Lymphocytes % 21.2 % (10-50); Mean Corpuscular HGB Conc 31.3 g/dL (31.8-35.4); Mean Corpuscular Hemoglobin 29.1 pg (27.0-31.2); Mean Platelet Volume 7.2 fl (7.4-10.4); Monocytes # 0.7 K/mm3 (0.1-1.0); Neutrophils # 8.6 K/mm3 (1.8-7.8); Platelet Count 394 K/mm3 (142-424); Red Blood Count 5.25 M/mm3 (4.60-6.20); Red Cell Distribution Width 13.9 % (11.5-17.5)
[2020-01-10 08:05] LABS: Chloride 97 mmol/L (98-107); Potassium 4.6 mmoL/L (3.5-5.1); Sodium 142 mmol/L (136-145)
[2020-01-10 08:08] LABS: Blood Urea Nitrogen 12 mg/dl (9-20); Creatinine Clearance Estimated 54 mL/min (50-200); Estimated Glomerular Filt Rate 95 ml/min (>60); GFR (African American) 115 ML/MIN (>60)
[2020-01-10 08:09] LABS: Anion Gap 12.6 mEq/L (5-15); Calcium 10.2 mg/dl (8.4-10.2); Carbon Dioxide 37 mmol/L (22.0-30.0); Glucose 168 mg/dl (74-100)
--- NOTE | 2020-01-10 08:09 | PC.NURSE ---
Rad at bedside
--- NOTE | 2020-01-10 08:13 | PC.NURSE ---
RT at bedside
[2020-01-10 08:22] LABS: Troponin I < 0.01 ng/ml (0.00-0.034)
[2020-01-10 08:39] LABS: ABG HCO3 29.5 mmhg (22.0-26.0); ABG Oxygen Saturation 96 % (90-100); ABG PH 7.36 mmol/L (7.35-7.45); ABG PO2 85.4 mmhg (80-100); ABG TCO2 31.1 mmhg (23-27)
[2020-01-10 08:40] LABS: Allen's Test ACCEPTABLE; Oxygen 2LPM %; Source L RADIAL
[2020-01-10 08:41] LABS: ABG PCO2 53.5 mmhg (35.0-45.0)
[2020-01-10 08:45] LABS: Microscopic, Urine URINE MICROSCOPIC (MICROSCOPIC)
[2020-01-10 08:47] LABS: Appearance,Urine CLEAR (Clear); Bilirubin,Urine Negative (Negative); Blood, Urine TRACE-I (Negative); Color,Urine YELLOW (Yellow); Glucose,Urine (UA) Negative (Negative); Ketones,Urine Negative (Negative); Leukocyte Esterase,Urine Negative (Negative); Nitrate,Urine Negative (Negative); PH,Urine 7.5 (5.0-8.5); Protein,Urine Negative (Negative); Specific Gravity, Urine 1.015 (1.005-1.030); Urobilinogen,Urine 0.2 EU/dl (0.2)
[2020-01-10 09:01] LABS: RBC,Urine Occasional #/hpf (0-3); Squamous Epithelial Cell,Urine Occasional #/hpf (0-5)
--- NOTE | 2020-01-10 09:21 | PC.NURSE ---
DAX GREENBERG speaking with Dr. Wilson who is covering for Dr. Roach per their office staff.
[2020-01-10 09:59] LABS: Coronavirus 19 IgG Antibody Negative (Negative); Coronavirus 19 IgM Antibody Negative (Negative)
[2020-01-10 10:19] LABS: Adenovirus,PCR Not Detected (NotDetected); Bordetella Pertussis Not Detected (NotDetected); Chlamydophila Pneumoniae, PCR Not Detected (NotDetected); Coronavirus 19, PCR Not Detected (NotDetected); Coronavirus 229E Not Detected (NotDetected); Coronavirus NL63 Not Detected (NotDetected); Coronavirus OC43 Not Detected (NotDetected); Coronovirus HKU1,PCR Not Detected (NotDetected); Human Metapneumovirus Not Detected (NotDetected); Influenza A, PCR Not Detected (NotDetected); Influenza AH1, 2009 Not Detected (NotDetected); Influenza AH1, PCR Not Detected (NotDetected); Influenza AH3,PCR Not Detected (NotDetected); Influenza B, PCR Not Detected (NotDetected); Mycoplasma Pneumoniae, PCR Not Detected (NotDetected); Parainfluenza 1, PCR Not Detected (NotDetected); Parainfluenza 2, PCR Not Detected (NotDetected); Parainfluenza 3, PCR Not Detected (NotDetected); Parainfluenza 4, PCR Not Detected (NotDetected); Respiratory Syncytial Virus Not Detected (NotDetected)
[2020-01-10 11:40] LABS: Troponin I < 0.01 ng/ml (0.00-0.034)
--- NOTE | 2020-01-10 11:46 | PC.NURSE ---
lab states approx 15 minutes left on resp panel with covid swab
[2020-01-10 12:08] LABS: Rhinovirus/Enterovirus Detected (NotDetected)
--- NOTE | 2020-01-10 12:25 | PC.NURSE ---
Called Dr Wilson office to speak with him. Office staff stated that he had left for the day but they would page him.
--- NOTE | 2020-01-10 12:26 | PC.NURSE ---
DAX GREENBERG speaking with Dr Wilson at this time
--- NOTE | 2020-01-10 15:27 | HMH.PHAVTE ---
[facility] Pharmacy VTE Monitoring - Patient Demographics Admission date: 01/10/20 Report Date: 01/10/20 Time: 15:27 Allergies/Adverse Reactions: Patient Allergies lisinopril [LISINOPRIL] Allergy (Intermediate, Verified 01/10/20 08:00) SWELLING Height: 1.75 m Weight: 55.508 kg Patient Problems: Current Active Problems COPD exacerbation (Acute) Acute exacerbation of chronic obstructive airways disease (Acute) - VTE Risk Labs: VTE Related Lab Results Hgb 15.3 g/dL (14.1-18.0) 01/10/20 07:50 Hct 48.8 % (42.0-52.0) 01/10/20 07:50 Plt Count 394 K/mm3 (142-424) 01/10/20 07:50 BUN 12 mg/dl (9-20) 01/10/20 07:50 Creatinine 0.80 mg/dl (0.66-1.25) 01/10/20 07:50 Estimated Creat Clear 54 mL/min (50-200) 01/10/20 07:50 Was VTE Risk Assessment Performed: Yes VTE Score: 7 VTE Risk Level: Moderate Risk - Prophylaxis VTE Prophylaxis Ordered?: Yes Types of VTE Prophylaxis: TEDS Knee High Location of Applied Device: Bilateral Lower Extremeties
--- NOTE | 2020-01-10 16:57 | HMH.ACPN2 ---
Internal Medicine - PN: Subj *Date: 01/10/20 *Time: 16:57 Interval history: Patient came to ER this morning with resp. distress. Placed on BiPAP and improved quickly. Now on NC O2. States he feels better now. Exam Vital signs and Labs for Last 24 Hours: Temp Pulse Resp BP Pulse Ox 97.9 F 110 H 22 143/91 H 95 01/10/20 14:32 01/10/20 14:32 01/10/20 14:32 01/10/20 14:32 01/10/20 14:32 Laboratory Results - last 24 hr 01/10/20 07:50: WBC 13.0 H, RBC 5.25, Hgb 15.3, Hct 48.8, MCV 93.0, MCH 29.1, MCHC 31.3 L, RDW 13.9, Plt Count 394, MPV 7.2 L, Neut % (Auto) 66.0, Lymph % (Auto) 21.2, [place] % (Auto) 5.0, Eos % (Auto) 6.8, Baso % (Auto) 0.8, Neut # (Auto) 8.6 H, Lymph # (Auto) 2.8, [place] # (Auto) 0.7, Eos # (Auto) 0.9 H, Baso # (Auto) 0.1 01/10/20 07:50: Sodium 142, Potassium 4.6, Chloride 97 L, Carbon Dioxide 37 H, Anion Gap 12.6, BUN 12, Creatinine 0.80, Estimated Creat Clear 54, Estimated GFR 95, Est GFR ( Amer) 115, Glucose 168 H, Calcium 10.2, Troponin I < 0.01 01/10/20 07:50: SARS-CoV-2 IgG Ab (Rapid) Negative, SARS-CoV-2 IgM Ab (Rapid) Negative 01/10/20 08:36: Specimen Source L radial, O2 % 2lpm, ABG pH 7.36, ABG pCO2 53.5 H, ABG pO2 85.4, ABG HCO3 29.5 H, ABG Total CO2 31.1 H, ABG O2 Saturation 96, ABG Base Excess 4.0 H, [place] Test Acceptable 01/10/20 08:37: Urine Color Yellow, Urine Appearance Clear, Urine pH 7.5, Ur Specific [place] 1.015, Urine Protein Negative, Urine Glucose (UA) Negative, Urine Ketones Negative, Urine Blood Trace-i, Urine Nitrate Negative, Urine Bilirubin Negative, Urine Urobilinogen 0.2, Ur Leukocyte Esterase Negative, Urine RBC Occasional, Urine WBC 3-5, Ur Squamous Epith Cells Occasional 01/10/20 09:44: Chlamy pneumoniae PCR Not detected, Adenovirus (PCR) Not detected, B. pertussis DNA (PCR) Not detected, Coronavirus OC43 (PCR) Not detected, Coronavirus HKU1 (PCR) Not detected, Coronavirus 229E (PCR) Not detected, SARS-CoV-2 (PCR) Not detected, Coronavirus NL63 (PCR) Not detected, Human Metapneumovir PCR Not detected, Influenza A (H1) PCR Not detected, Influ A (H1N1/09) PCR Not detected, Influenza A (H3) PCR Not detected, Influenza Type A (PCR) Not detected, Influenza Type B (PCR) Not detected, M. pneumoniae (PCR) Not detected, Parainfluenza 1 (PCR) Not detected, Parainfluenza 2 (PCR) Not detected, Parainfluenza 3 (PCR) Not detected, Parainfluenza 4 (PCR) Not detected, RSV (PCR) Not detected, Entero/Rhino (PCR) Detected A 01/10/20 11:07: Troponin I < 0.01 Vital Signs - 24 hr 01/10/20 07:53 01/10/20 08:00 01/10/20 08:54 Temperature Pulse Rate Pulse Rate [Right Brachial] 114 H 120 H 103 H Respiratory Rate 24 Blood Pressure Blood Pressure [Right Arm] 176/140 H 188/105 H 158/92 H 02 Sat by Pulse Oximetry 94 L 96 97 01/10/20 09:00 01/10/20 09:05 01/10/20 09:51 Temperature Pulse Rate 111 H Pulse Rate [Right Brachial] 101 H 105 H Respiratory Rate Blood Pressure Blood Pressure [Right Arm] 144/90 H 131/85 02 Sat by Pulse Oximetry 96 96 95 01/10/20 10:24 01/10/20 10:38 01/10/20 11:26 Temperature Pulse Rate Pulse Rate [Right Brachial] 102 H 96 H 100 H Respiratory Rate Blood Pressure Blood Pressure [Right Arm] 142/79 H 147/76 H 125/84 02 Sat by Pulse Oximetry 93 L 94 L 93 L 01/10/20 11:43 01/10/20 12:20 01/10/20 12:49 Temperature 98.3 F Pulse Rate Pulse Rate [Right Brachial] 105 H 100 H Respiratory Rate Blood Pressure Blood Pressure [Right Arm] 137/78 171/87 H 02 Sat by Pulse Oximetry 96 95 01/10/20 13:10 01/10/20 13:41 01/10/20 14:08 Temperature 98.3 F Pulse Rate 110 H Pulse Rate [Right Brachial] 110 H 105 H Respiratory Rate 18 20 Blood Pressure 156/86 H Blood Pressure [Right Arm] 134/77 152/90 H 02 Sat by Pulse Oximetry 94 L 95 01/10/20 14:32 Temperature 97.9 F Pulse Rate Pulse Rate [Right Brachial] 110 H Respiratory Rate 22 Blood Pressure Blood Pressure [Right Arm] 143/91 H 02 Sat by Pulse Oximetry
[2020-01-10 17:02] LABS: POC Glucose,Bedside 249 (70-110)
--- NOTE | 2020-01-10 17:24 | HMH.HP ---
*Admission Date: 01/10/20 *Chief complaint: Shortness of breath *History of present illness: Mr. Trejo is a 74-year-old male with a history of type 2 diabetes mellitus, COPD, hypertension, and hyperlipidemia who presented to the emergency room with progressive shortness of breath and worsening of his cough. He was noted to be on O2 at 2 L. He had poor inspiratory effort with use of his accessory muscles. He was able to speak in short sentences. He had been on antibiotics of Zithromax and Cefdinir without any help as well as a short steroid burst. He was placed on BiPAP, given IV steroids and antibiotics to include Rocephin and a Zithromax. ABG's with evaluation revealed a pH of 7.36, PCO2 of 53.5, PO2 of 85.4 and a bicarb of 29.5. Patient remained alert and oriented x3. After initiation of BiPAP, nebulizer treatment breathing treatment, and IV steroids/antibiotics patient seemed to improve. He had some wheezes but he was moving air much better. Also noted were was a mild leukocytosis. X-ray demonstrated hyperinflated lungs without any acute findings. Cardiac enzymes were normal. Also noted was a positive entero/rhino PCR. COVID IgG and IgM were both negative. Urine was negative as well. At the time of this exam patient is a little better. He still very dyspneic. He has been trying to eat dinner. [facility] History Medical History: Reports:: Chronic Obstructive Pulmonary Disease (COPD), Diabetes Mellitus Type 2, Hyperlipidemia, Hypertension Denies:: Cancer, Diabetes Mellitus Type 1, Internal Pacemaker, MRSA, Seizures *Have you ever received a pneumonia vaccine?: No *Have you received a flu vaccine this season?: No Other Medical History: Reports: Arthritis, Cataracts. Denies: Blood Transfusion Reaction Laterality Cases: Bilateral: Tonsillectomy Other Surgeries: Yes: Cardiac Catheterization, Colonoscopy, Hernia Repair, Other (Back surgery, finger reattached). No: Pacemaker Amputation: No Fractures: No - *Social History Last grade of school completed: Some college Smoking Status: Former smoker Tobacco Type: cigarettes #Yrs smoked (if former smoker): 50 Alcohol Intake: never Substance Use Type: denies use *Occupational Status:: retired Housing: apartment Household Members: spouse *Travel in the last 8 weeks: None Family Hx:: Cancer Review of Systems - Constitutional Reports fatigue, Denies fever(s) - Eyes Denies change in vision - ENT Denies ear pain, Denies sore throat - *Cardiovascular Reports shortness of breath, Denies chest pain - *Respiratory Reports chest congestion, Reports cough, Reports shortness of breath - *Gastrointestinal Denies abdominal pain, Denies loose stools, Denies nausea, Denies vomiting - *Genitourinary Denies difficulty urinating Comments: He has had frequency and is voiding in large amounts. - *Musculoskeletal Reports muscle weakness - *Neurologic Denies abnormal speech, Denies behavioral changes, Denies dizziness Meds Home Medications Medication Instructions Recorded Confirmed Type albuterol sulfate 1.25 mg/3 mL 1.25 mg INHALATION Q6HP PRN 02/18/18 01/10/20 History solution for nebulization amlodipine 5 mg tablet 5 mg PO DAILY 30 Days tab 02/18/18 01/10/20 History aspirin 325 mg tablet 325 mg PO DAILY 02/18/18 01/10/20 History atorvastatin 40 mg tablet 40 mg PO HS 30 Days tab 02/18/18 01/10/20 History coenzyme Q10 75 mg capsule 75 mg PO DAILY 02/18/18 01/10/20 History gabapentin 300 mg capsule 300 mg PO TID 30 Days cap 02/18/18 01/10/20 History metformin 1,000 mg tablet 1,000 mg PO BID 90 Days tab 02/18/18 01/10/20 History metoprolol tartrate 25 mg tablet 12.5 mg PO BID 30 Days tab 02/18/18 01/10/20 History omeprazole 40 mg capsule,delayed 40 mg PO DAILY 90 Days cap 02/18/18 01/10/20 History release Guaifenesin/Dextromethorphan 1 each PO DAILY 01/10/20 01/10/20 History [Mucinex Dm ER 600-30 mg Tablet] Allergies Allergy/AdvReac Type Severity Reaction
--- NOTE | 2020-01-10 18:49 | PC.NURSE ---
A&OX4. PT HAS TOLERATED 2L NC WELL THROUGHOUT SHIFT. RESPIRATIONS REGULAR AND UNLABORED. WHEEZES NOTED THROUGHOUT LUNGS. NO COUGH NOTED. HAND DIRECTOR OF CLINICAL SERVICES EQUAL. +2 PULSES NOTED THROUGHOUT. ACTIVE BOWEL SOUNDS HEARD THROUGHOUT. SOFT AND NONTENDER ABDOMEN. LAST BM REPORTED LAST NIGHT. PT VOIDS PER URINAL. CLEAR YELLOW URINE NOTED. DAUGHTER HAS BEEN AT THE BEDSIDE MOST OF THE TIME. NO REPORTS OF PAIN THROUGHOUT SHIFT. PT IS CURRENTLY LYING IN BED RESTING. CALL LIGHT WITHIN REACH. BED IN LOWEST POSITION. VSS. WILL CONTINUE TO MONITOR.
--- NOTE | 2020-01-10 19:15 | PC.NURSE ---
report given to jose
[2020-01-10 21:43] LABS: POC Glucose,Bedside 258 (70-110)
[2020-01-11] VITALS (8 sets, daily range): BP systolic 122–155; BP diastolic 72–81; PULSE 90–115; RESP 16–24; TEMP 36.6–36.7; O2SAT 92–97; BMI 17.9
--- NOTE | 2020-01-11 03:16 | PC.NURSE ---
Pt is alert and oriented x4. Pt rested with eyes closed intermittently t/o shift. PERRLA. Cap refill < 3 seconds. Bilateral hand talent rep noted equal and strong. Pt c/o pruritus t/o body, rash noted to abdomen, back, bilateral extremities and palms of hands. Rash also noted in form of raised hives with redness. MD aware. Administered Benadryl x2 thus far this shift for pruritus. Pt states rash has been present since administration of Solumedrol today upon admission. Solumedrol d/c this shift per MD. Bilateral lungs noted with expiratory wheezing upon auscultation. Encouraged use of incentive spirometer while awake. Pt demonstrated appropriate use. Tolerated 2 lnc well with no c/o SOA. Pt tolerates breathing tx well per MAY. States this am he feels better. RR noted even and unlabored. Active bowel sounds noted in all 4 quads upon auscultation. Independent use of urinal at bedside. Urine noted clear and bright yellow in color. No BM noted this shift thus far. Abdomen noted flat, soft and non-tender upon palpation. No edema noted. Refused teds. VSS. Remains safe. Call light within reach. Will continue to monitor.
[2020-01-11 05:46] LABS: POC Glucose,Bedside 164 (70-110)
[2020-01-11 06:59] LABS: Basophils % 0.1 % (0.1-2.0); Eosinophils # 0.1 K/mm3 (0.0-0.4); Eosinophils % 0.6 % (0.1-12.0); Lymphocytes # 1.3 K/mm3 (0.7-4.5); Lymphocytes % 9.5 % (10-50); Mean Corpuscular HGB Conc 31.2 g/dL (31.8-35.4); Mean Corpuscular Volume 92.8 fl (80-94); Mean Platelet Volume 7.5 fl (7.4-10.4); Monocytes # 0.7 K/mm3 (0.1-1.0); Monocytes % 5.3 % (1.7-9.3); Neutrophils # 11.7 K/mm3 (1.8-7.8); Neutrophils % 84.6 % (37.0-80.0); Platelet Count 395 K/mm3 (142-424); Red Blood Count 4.85 M/mm3 (4.60-6.20); White Blood Count 13.8 K/mm3 (4.8-10.8)
[2020-01-11 07:07] LABS: Chloride 98 mmol/L (98-107); Potassium 5.1 mmoL/L (3.5-5.1); Sodium 137 mmol/L (136-145)
[2020-01-11 07:10] LABS: Alanine Aminotransferase 19 U/L (12-78); Albumin Level 4.3 g/dl (3.5-5.0); Albumin/Globulin Ratio 1.7 (1.1-1.8); Alkaline Phosphatase 101 U/L (38-126); Anion Gap 17.1 mEq/L (5-15); Aspartate Amino Transferase 22 U/L (17-59); Bilirubin,Total 0.4 mg/dl (0.2-1.3); Blood Urea Nitrogen 20 mg/dl (9-20); Calcium 9.8 mg/dl (8.4-10.2); Carbon Dioxide 27 mmol/L (22.0-30.0); Creatinine Clearance Estimated 52 mL/min (50-200); Estimated Glomerular Filt Rate 83 ml/min (>60); GFR (African American) 100 ML/MIN (>60); Globulin 2.5 g/dL (1.3-3.2); Glucose 175 mg/dl (74-100); Total Protein,Serum 6.8 g/dl (6.3-8.2)
--- NOTE | 2020-01-11 08:33 | HMH.ACPN2 ---
<Kathryn Kimbrough - Last Filed: 01/11/20 08:40> Internal Medicine - PN: Subj *Date: 01/11/20 *Time: 08:40 Interval history: He is resting quietly in bed and states he feels better. He ate well, denies any nausea or vomiting. He denies any pain. He remains short of breath with any exertion and during conversation. His cough is non-productive. Exam Vital signs and Labs for Last 24 Hours: Temp Pulse Resp BP Pulse Ox 97.8 F 110 H 22 138/72 93 L 01/11/20 07:23 01/11/20 07:23 01/11/20 07:23 01/11/20 07:23 01/11/20 07:23 Laboratory Results - last 24 hr 01/10/20 07:50: SARS-CoV-2 IgG Ab (Rapid) Negative, SARS-CoV-2 IgM Ab (Rapid) Negative 01/10/20 08:36: Specimen Source L radial, O2 % 2lpm, ABG pH 7.36, ABG pCO2 53.5 H, ABG pO2 85.4, ABG HCO3 29.5 H, ABG Total CO2 31.1 H, ABG O2 Saturation 96, ABG Base Excess 4.0 H, [place] Test Acceptable 01/10/20 08:37: Urine Color Yellow, Urine Appearance Clear, Urine pH 7.5, Ur Specific [place] 1.015, Urine Protein Negative, Urine Glucose (UA) Negative, Urine Ketones Negative, Urine Blood Trace-i, Urine Nitrate Negative, Urine Bilirubin Negative, Urine Urobilinogen 0.2, Ur Leukocyte Esterase Negative, Urine RBC Occasional, Urine WBC 3-5, Ur Squamous Epith Cells Occasional 01/10/20 09:44: Chlamy pneumoniae PCR Not detected, Adenovirus (PCR) Not detected, B. pertussis DNA (PCR) Not detected, Coronavirus OC43 (PCR) Not detected, Coronavirus HKU1 (PCR) Not detected, Coronavirus 229E (PCR) Not detected, SARS-CoV-2 (PCR) Not detected, Coronavirus NL63 (PCR) Not detected, Human Metapneumovir PCR Not detected, Influenza A (H1) PCR Not detected, Influ A (H1N1/09) PCR Not detected, Influenza A (H3) PCR Not detected, Influenza Type A (PCR) Not detected, Influenza Type B (PCR) Not detected, M. pneumoniae (PCR) Not detected, Parainfluenza 1 (PCR) Not detected, Parainfluenza 2 (PCR) Not detected, Parainfluenza 3 (PCR) Not detected, Parainfluenza 4 (PCR) Not detected, RSV (PCR) Not detected, Entero/Rhino (PCR) Detected A 01/10/20 11:07: Troponin I < 0.01 01/10/20 16:53: POC Glucose 249 H 01/10/20 20:47: POC Glucose 258 H 01/11/20 05:25: POC Glucose 164 H 01/11/20 06:35: WBC 13.8 H, RBC 4.85, Hgb 14.0 L, Hct 45.0, MCV 92.8, MCH 29.0, MCHC 31.2 L, RDW 14.0, Plt Count 395, MPV 7.5, Neut % (Auto) 84.6 H, Lymph % (Auto) 9.5 L, [place] % (Auto) 5.3, Eos % (Auto) 0.6, Baso % (Auto) 0.1, Neut # (Auto) 11.7 H, Lymph # (Auto) 1.3, [place] # (Auto) 0.7, Eos # (Auto) 0.1, Baso # (Auto) 0.0 01/11/20 06:35: Sodium 137, Potassium 5.1, Chloride 98, Carbon Dioxide 27 D, Anion Gap 17.1 H, BUN 20 D, Creatinine 0.90, Estimated Creat Clear 52, Estimated GFR 83, Est GFR ( Amer) 100, Glucose 175 H, Calcium 9.8, Total Bilirubin 0.4, AST 22, ALT 19, Alkaline Phosphatase 101, Total Protein 6.8, Albumin 4.3, Globulin 2.5, Albumin/Globulin Ratio 1.7 I & O for Last 24 hours: Intake & Output 01/08/20 01/09/20 01/10/20 01/11/20 11:59 11:59 11:59 11:59 Intake Total 900 / 900 Output Total 1500 / 1500 Balance -600 / -600 Weight 125 lb 121 lb 4 oz Microbiology Reports for the Last 24 Hours: Microbiology 01/10/20 08:20 Sputum - Expectorated Sputum Gram Stain - Final 01/10/20 08:20 Sputum - Expectorated Sputum Sputum Culture - Preliminary - Constitutional no acute distress - *Routine HEENT Exam Head: Present: normocephalic ENT: Present: mucous membranes moist - *Routine Respiratory Exam Comments: generally diminished with rhonchi and scattered wheezes throughout - *Routine Cardiovascular Exam Present: RRR - *Routine Abdominal Exam Present: soft, normoactive bowel sounds. Absent: tenderness, distended, guarding, firm, rigid - *Routine Extremities Exam Present: full ROM, pulses intact. Absent: edema, calf tenderness - *Routine Neurological Exam Present: alert, oriented X3, normal speech Assessment and Plan (1) Rhinovirus infection Status: Acute Category: Medical Code(s): B34.8 - Other viral
[2020-01-11 11:33] LABS: POC Glucose,Bedside 152 (70-110)
--- NOTE | 2020-01-11 11:40 | HMH.PHAINT ---
MEDICATION RECONCILIATION COMPLETED ON PATIENT USING EXTERNAL FILL HISTORY FROM PHARMACY. -JOSE VITAL, KALAD
[2020-01-11 16:48] LABS: POC Glucose,Bedside 166 (70-110)
--- NOTE | 2020-01-11 17:15 | PC.NURSE ---
PATIENT A&O X4, LUNGS: RIGHT SIDE, WHEEZING HEARD. LEFT SIDE DIMINSHED. PULSES EQUAL. WITH EACH ASSESSMENT SHOW SIGNS OF DIFFICULTY BREATHING. THIS RN WOULD ASK IF PATIENT IS OKAY, WOULD HE LIKE A BREATHING TREATMENT. PATIENT WOULD STATE NO, THIS IS HOW I BREATHE. THIS RN ENCOURAGED PATIENT TO USE THE RESOURCES PROVIDED. PATIENT AGREED TO 2 TREATMENTS DURING THIS RN SHIFT. PATIENT HAS SCANT AMOUNT OF WELTS NOTED. PATIENT REQUESTED BENADRYL. THIS RN ADMINISTERED. NO OTHER CONCERNS AT THIS TIME.
[2020-01-11 20:32] LABS: POC Glucose,Bedside 170 (70-110)
[2020-01-12] VITALS (9 sets, daily range): BP systolic 141–164; BP diastolic 71–89; PULSE 82–111; RESP 18–22; TEMP 36.4–36.8; O2SAT 93–98; BMI 18.1; BMI 18.3
--- NOTE | 2020-01-12 04:29 | PC.NURSE ---
Pt is alert and oriented x4. Pt has rested well with eyes closed for majority of shift. No acute changes noted from previous shift. PERRLA. Bilateral hand transaction advisory services manager noted equal and strong. Cap refill < 3 seconds. Tolerated 2 lnc well with no c/o SOA. Bilateral rhonchi noted upon auscultation. RR noted even and unlabored. Abdomen noted soft and non-tender. Adequate urine output noted. No c/o pruritus thus far this shift. No further signs of rash noted upon initial assessment. VSS. Remains safe. Call light within reach. Will continue to monitor.
[2020-01-12 06:19] LABS: POC Glucose,Bedside 147 (70-110)
--- NOTE | 2020-01-12 08:23 | HMH.ACPN2 ---
Internal Medicine - PN: Subj *Date: 01/12/20 *Time: 08:23 Interval history: Patient states he feels a little better this morning. He actually slept some last night. Still coughing a lot with any deep breathing or exertion. Exam Vital signs and Labs for Last 24 Hours: Temp Pulse Resp BP Pulse Ox 98.3 F 104 H 18 149/84 H 96 01/12/20 04:00 01/12/20 06:10 01/12/20 06:10 01/12/20 04:00 01/12/20 06:10 Laboratory Results - last 24 hr 01/11/20 11:25: POC Glucose 152 H 01/11/20 16:33: POC Glucose 166 H 01/11/20 20:14: POC Glucose 170 H 01/12/20 05:32: POC Glucose 147 H Vital Signs - 24 hr 01/11/20 11:37 01/11/20 16:00 01/11/20 18:06 Temperature 97.9 F Pulse Rate 97 H 100 H Pulse Rate [Right Brachial] 99 H Respiratory Rate 20 Blood Pressure [Right Arm] 122/75 02 Sat by Pulse Oximetry 95 96 01/11/20 20:00 01/12/20 00:00 01/12/20 04:00 Temperature 98.1 F 98 F 98.3 F Pulse Rate 115 H Pulse Rate [Right Brachial] 110 H 99 H 111 H Respiratory Rate 24 22 22 Blood Pressure [Right Arm] 150/81 H 143/80 H 149/84 H 02 Sat by Pulse Oximetry 97 98 96 01/12/20 06:10 Temperature Pulse Rate 100 H Pulse Rate [Right Brachial] Respiratory Rate 18 Blood Pressure [Right Arm] 02 Sat by Pulse Oximetry 96 I & O for Last 24 hours: Intake & Output 01/09/20 01/10/20 01/11/20 01/12/20 23:59 23:59 23:59 23:59 Intake Total 880 / 880 620 / 820 210 / 210 Output Total 1300 / 1300 550 / 550 420 / 420 Balance -420 / -420 70 / 270 -210 / -210 Weight 122 lb 6 oz 121 lb 4 oz 122 lb 6 oz Microbiology Reports for the Last 24 Hours: Microbiology 01/10/20 08:20 Sputum - Expectorated Sputum Gram Stain - Final 01/10/20 08:20 Sputum - Expectorated Sputum Sputum Culture - Preliminary - Constitutional no acute distress - *Routine HEENT Exam Head: Present: normocephalic Eye: Present: EOMI ENT: Present: mucous membranes moist - *Routine Neck Exam Present: supple. Absent: lymphadenopathy - *Routine Respiratory Exam Present: wheezes (bilateral), diminished air movement - *Routine Cardiovascular Exam Present: RRR - *Routine Abdominal Exam Present: soft, normoactive bowel sounds. Absent: tenderness - *Routine Extremities Exam Absent: cyanosis, clubbing, edema - *Routine Skin Exam Present: warm. Absent: rash - *Routine Neurological Exam Present: alert, oriented X3 Assessment and Plan (1) Rhinovirus infection Status: Acute Category: Medical Code(s): B34.8 - Other viral infections of unspecified site (2) Acute exacerbation of chronic obstructive airways disease Status: Acute Category: Medical Code(s): J44.1 - Chronic obstructive pulmonary disease with (acute) exacerbation (3) Acute and chronic respiratory failure with hypoxia Status: Acute Category: Medical Code(s): J96.21 - Acute and chronic respiratory failure with hypoxia (4) COPD (chronic obstructive pulmonary disease) Status: Chronic Category: Medical Code(s): J44.9 - Chronic obstructive pulmonary disease, unspecified (5) Type 2 diabetes mellitus Status: Chronic Category: Medical Code(s): E11.9 - Type 2 diabetes mellitus without complications (6) Hypertension Status: Chronic Category: Medical Code(s): I10 - Essential (primary) hypertension - Assessment and plan all Dx Assessment and Plan for all problems:: Continue current treatment.
[2020-01-12 12:57] LABS: POC Glucose,Bedside 162 (70-110)
--- NOTE | 2020-01-12 13:55 | HMH.PTEV ---
Physical Therapy Evaluation Rehab PT IP Evaluation Start: 01/12/20 12:31 Freq: ONCE Status: Active Protocol: Document 01/12/20 13:51 PHORNE (Rec: 01/12/20 13:55 PHORNE [id number]) Subjective/History History History 74 yowm adm to [facility] with increased SOA. He lives with daughter and and is primary caregiver for his also. He is independent with all mobility at baseline, but does use a walking stick from time to time. Subjective Subjective Pt reports his breathing is some better today, no c/o pain . Rehab PT IP Eval Objective Appearance Patient Behavior Appropriate Patient Orientation Person,Place,Time Difficulty following instructions none Speech Pattern Clear Ambulation Patient Able to Ambulate Yes Ambulation Observation IP General Gait Pattern Observation Wide Based Gait Ambulation Distance (feet) 20 Ambulation Assistive Device None Ambulation Ability Contact Guard/Hand Hold Balance Ability to Arise Able, uses arms to help Sitting Balance Steady, safe Standing Balance Narrow stance w/o support Dynamic Sitting Balance Ability Good Dynamic Standing Balance Ability Fair Transfers Bed Transfer Ability Contact Guard/Hand Hold Chair Transfer Ability Contact Guard/Hand Hold Sit to Stand Bed Transfer Ability Contact Guard/Hand Hold Sit to Stand Chair Transfer Ability Contact Guard/Hand Hold ROM All Extremities PT ROM Status WFL MMT All Extremities PT MMT WFL Rehab PT IP prob,goals,plan Problems Date of Evaluation: 01/12/20 PT IP Problems Bed Mobility,Transfers,Gait Rehab Potential Rehab Potential Good Plan PT Intervention Plan Bed Mobility,Transfers,Gait, Therapeutic Exercise PT Plan Frequency BID Duration LOS Discharge Goals Bed Transfer Ability Supervision/Stand by Sit to Stand Chair Transfer Ability Supervision/Stand by Ambulation Assistive Device Straight Cane Ambulation Distance (feet) 40 Discharge Plan PT Discharge Plan Pt is appropriate to return home once medically stable. G -code Required No Eval Complexity Eval Charge Codes 70674 - Moderate Complexity PHYSICIAN CERTIFICATION: I certify the specified therapy services for George Gonzalezcarlos Quigley
--- NOTE | 2020-01-12 16:30 | PC.NURSE ---
Took over care of patient from Neel Arredondo RN.
--- NOTE | 2020-01-12 17:07 | PC.NURSE ---
Pt reports resting well throughout the day and feeling better than yesturday. Still exhibits coughing and severe SOB with any exertion. Lungs diminished bilat with scattered wheezes. Refused s/s insulin coverage earlier after noon fs. Sitting up in bed watching tv. Denies needing anything at this time.
--- NOTE | 2020-01-12 19:19 | PC.NURSE ---
report given to kimber
[2020-01-12 20:48] LABS: POC Glucose,Bedside 201 (70-110)
[2020-01-13] VITALS (8 sets, daily range): BP systolic 146–155; BP diastolic 69–84; PULSE 85–108; RESP 18–22; TEMP 36.5–36.6; O2SAT 94–99; BMI 18.1
--- NOTE | 2020-01-13 05:35 | PC.NURSE ---
shift summary, no acute changes since prior nurse's note on this shift, pt has rested well t/o this part of the shift, pt did ring out for cough medicine one time this part of the shift, pt remains on NC-2L, O2 sats have remained between 93-97%, pt still gets short of air with exertion, pt has had no other complaints this shift
[2020-01-13 06:38] LABS: Basophils % 0.1 % (0.1-2.0); Chloride 99 mmol/L (98-107); Eosinophils # 0.1 K/mm3 (0.0-0.4); Eosinophils % 0.4 % (0.1-12.0); Hematocrit 44.6 % (42.0-52.0); Hemoglobin 13.7 g/dL (14.1-18.0); Lymphocytes # 1.5 K/mm3 (0.7-4.5); Lymphocytes % 9.3 % (10-50); Mean Corpuscular HGB Conc 30.8 g/dL (31.8-35.4); Mean Corpuscular Hemoglobin 29.1 pg (27.0-31.2); Mean Corpuscular Volume 94.6 fl (80-94); Mean Platelet Volume 7.5 fl (7.4-10.4); Monocytes % 6.2 % (1.7-9.3); Neutrophils # 13.2 K/mm3 (1.8-7.8); Platelet Count 398 K/mm3 (142-424); Red Blood Count 4.72 M/mm3 (4.60-6.20); Sodium 140 mmol/L (136-145); White Blood Count 15.7 K/mm3 (4.8-10.8)
[2020-01-13 06:41] LABS: Blood Urea Nitrogen 26 mg/dl (9-20); Calcium 9.6 mg/dl (8.4-10.2); Carbon Dioxide 33 mmol/L (22.0-30.0); Creatinine Clearance Estimated 52 mL/min (50-200); Estimated Glomerular Filt Rate 83 ml/min (>60); GFR (African American) 100 ML/MIN (>60); Glucose 148 mg/dl (74-100)
[2020-01-13 06:50] LABS: MANUAL DIFFERENTIAL MANUAL DIFFERENTIAL (MANUAL DIFF)
[2020-01-13 07:46] LABS: Acanthocytes 1+; Lymphocytes % 13 % (10-50); Monocytes % 5 % (2-9); Neutrophils % 82 % (42-76); Platelet Estimate Normal; Poikilocytosis 1+; Total Cells Counted 100
[2020-01-13 08:49] LABS: Potassium 5.2 mmoL/L (3.5-5.1)
--- NOTE | 2020-01-13 08:51 | PC.NURSE ---
LAB AT BEDSIDE COLLECTING K LEVEL
--- NOTE | 2020-01-13 09:13 | PC.NURSE ---
PATIENT USING INCENTIVE SPIROMETER--[id number]
--- NOTE | 2020-01-13 09:13 | HMH.ACPN2 ---
Internal Medicine - PN: Subj *Date: 01/13/20 *Time: 09:13 Interval history: Patient states he did not sleep well last night. He was up several times with coughing episodes. Robitussin DM helped a little Exam Vital signs and Labs for Last 24 Hours: Temp Pulse Resp BP Pulse Ox 97.8 F 104 H 22 155/69 H 99 01/13/20 07:50 01/13/20 07:50 01/13/20 08:00 01/13/20 07:50 01/13/20 08:00 Laboratory Results - last 24 hr 01/12/20 12:50: POC Glucose 162 H 01/12/20 20:29: POC Glucose 201 H 01/13/20 06:05: WBC 15.7 H, RBC 4.72, Hgb 13.7 L, Hct 44.6, MCV 94.6 H, MCH 29.1, MCHC 30.8 L, RDW 14.0, Plt Count 398, MPV 7.5, Neut % (Auto) 84.0 H, Lymph % (Auto) 9.3 L, [place] % (Auto) 6.2, Eos % (Auto) 0.4, Baso % (Auto) 0.1, Neut # (Auto) 13.2 H, Lymph # (Auto) 1.5, [place] # (Auto) 1.0, Eos # (Auto) 0.1, Baso # (Auto) 0.0, Total Counted 100, Neutrophils % (Manual) 82 H, Lymphocytes % (Manual) 13, Monocytes % (Manual) 5, Platelet Estimate Normal, Poikilocytosis 1+, Acanthocytes (Spur) 1+ 01/13/20 06:05: Sodium 140, Potassium 6.0 H, Chloride 99, Carbon Dioxide 33 H D, Anion Gap 14.0, BUN 26 H D, Creatinine 0.90, Estimated Creat Clear 52, Estimated GFR 83, Est GFR ( Amer) 100, Glucose 148 H, Calcium 9.6 01/13/20 08:37: Potassium 5.2 H Vital Signs - 24 hr 01/12/20 12:30 01/12/20 16:00 01/12/20 17:00 Temperature 98.1 F Pulse Rate 82 Pulse Rate [Right Brachial] 90 Respiratory Rate 20 20 Blood Pressure [Right Arm] 141/71 H 02 Sat by Pulse Oximetry 98 98 98 01/12/20 19:50 01/12/20 21:00 01/13/20 04:05 Temperature 97.6 F 97.8 F Pulse Rate 99 H Pulse Rate [Right Brachial] 97 H 101 H Respiratory Rate 20 18 Blood Pressure [Right Arm] 164/89 H 154/84 H 02 Sat by Pulse Oximetry 93 L 97 01/13/20 07:05 01/13/20 07:50 01/13/20 08:00 Temperature 97.8 F Pulse Rate 87 Pulse Rate [Right Brachial] 104 H Respiratory Rate 22 22 Blood Pressure [Right Arm] 155/69 H 02 Sat by Pulse Oximetry 94 L 99 99 I & O for Last 24 hours: Intake & Output 01/10/20 01/11/20 01/12/20 01/13/20 23:59 23:59 23:59 23:59 Intake Total 880 / 880 620 / 820 450 / 450 480 / 480 Output Total 1300 / 1300 550 / 550 720 / 720 250 / 250 Balance -420 / -420 70 / 270 -270 / -270 230 / 230 Weight 122 lb 6 oz 121 lb 4 oz 123 lb 7.342 oz 122 lb 1 oz Microbiology Reports for the Last 24 Hours: Microbiology 01/10/20 08:20 Sputum - Expectorated Sputum Gram Stain - Final 01/10/20 08:20 Sputum - Expectorated Sputum Sputum Culture - Final Normal Respiratory Danielle - Constitutional no acute distress - *Routine HEENT Exam Head: Present: normocephalic Eye: Present: EOMI, PERRL ENT: Present: mucous membranes moist - *Routine Neck Exam Present: supple. Absent: lymphadenopathy - *Routine Respiratory Exam Present: wheezes (bilateral), diminished air movement - *Routine Cardiovascular Exam Present: RRR - *Routine Abdominal Exam Present: soft, normoactive bowel sounds. Absent: tenderness - *Routine Extremities Exam Absent: cyanosis, clubbing, edema - *Routine Skin Exam Present: warm. Absent: rash - *Routine Neurological Exam Present: alert, oriented X3 Assessment and Plan (1) Rhinovirus infection Status: Acute Category: Medical Code(s): B34.8 - Other viral infections of unspecified site (2) Acute exacerbation of chronic obstructive airways disease Status: Acute Category: Medical Code(s): J44.1 - Chronic obstructive pulmonary disease with (acute) exacerbation (3) Acute and chronic respiratory failure with hypoxia Status: Acute Category: Medical Code(s): J96.21 - Acute and chronic respiratory failure with hypoxia (4) COPD (chronic obstructive pulmonary disease) Status: Chronic Category: Medical Code(s): J44.9 - Chronic obstructive pulmonary disease, unspecified (5) Type 2 diabetes mellitus Status: Chronic Category: Medical Code(s): E11.9 - Type 2
--- NOTE | 2020-01-13 09:15 | PC.NURSE ---
ROUNDING , AWARE OF K LEVEL NOW 5.2
--- NOTE | 2020-01-13 11:20 | PC.NURSE ---
patient ambulating in hallway with physical therapy and walker. tolerating well.
[2020-01-13 11:24] LABS: POC Glucose,Bedside 131 (70-110)
[2020-01-13 11:26] LABS: POC Glucose,Bedside 138 (70-110)
--- NOTE | 2020-01-13 16:10 | PC.NURSE ---
PATIENT SITTING ON EOB WITH SAFETY MEASURES IN PLACE. PATIENT ON 2LPM N/C HELADIO WELL O2 SAT WNL. NO C/O SOA, COUGH AT THIS TIME.PATIENT A&OX3. PATIENT USING URINAL TO URINATE. PATIENT AMBULATED IN HALLWAY TODAY WITH PHYSICAL THERAPY. SKIN INTACT. PIV TO RFA SL. NO ISSUES AT THIS TIME. WILL CONT TO MX.
[2020-01-13 16:51] LABS: POC Glucose,Bedside 179 (70-110)
--- NOTE | 2020-01-13 17:59 | PC.NURSE ---
pt c/o cough. prn medical technologist generalist par mar
[2020-01-13 20:53] LABS: POC Glucose,Bedside 184 (70-110)
[2020-01-14] VITALS (10 sets, daily range): BP systolic 142–165; BP diastolic 65–84; PULSE 50–96; RESP 18–22; TEMP 36.4–36.8; O2SAT 92–97; BMI 18.0
--- NOTE | 2020-01-14 03:45 | PC.NURSE ---
No acute changes. Pt has not stated any complaints. Declined any medication for sleep or cough last night. Pt is currently on 2L O2 NC. Pt states that he has taken O2 off a couple of times as a trial and has tolerated well. Pt states he left O2 off for an hour. VS have remained stable. Lungs are diminished t/o with scattered rhonchi to anterior upper lobes. BS active. Last BM was 01/12. No concerns noted at this time. Will continue to monitor.
[2020-01-14 06:14] LABS: POC Glucose,Bedside 115 (70-110)
--- NOTE | 2020-01-14 08:19 | HMH.ACPN2 ---
Internal Medicine - PN: Subj *Date: 01/14/20 *Time: 08:19 Interval history: Patient feels a little better this morning. Hycodan was more effective for his cough. Exam Vital signs and Labs for Last 24 Hours: Temp Pulse Resp BP Pulse Ox 97.9 F 86 22 153/65 H 94 L 01/14/20 07:43 01/14/20 07:43 01/14/20 07:43 01/14/20 07:43 01/14/20 07:43 Laboratory Results - last 24 hr 01/13/20 06:04: POC Glucose 131 H 01/13/20 08:37: Potassium 5.2 H 01/13/20 11:18: POC Glucose 138 H 01/13/20 16:44: POC Glucose 179 H 01/13/20 20:40: POC Glucose 184 H 01/14/20 06:00: POC Glucose 115 H Vital Signs - 24 hr 01/13/20 14:05 01/13/20 15:53 01/13/20 20:00 Temperature 97.8 F 97.7 F Pulse Rate 90 Pulse Rate [Right Brachial] 85 89 Respiratory Rate 22 19 Blood Pressure [Right Arm] 146/77 H 154/84 H 02 Sat by Pulse Oximetry 95 96 96 01/13/20 20:34 01/14/20 04:00 01/14/20 07:43 Temperature 97.6 F 97.9 F Pulse Rate 94 H Pulse Rate [Right Brachial] 91 H 86 Respiratory Rate 19 22 Blood Pressure [Right Arm] 165/84 H 153/65 H 02 Sat by Pulse Oximetry 95 95 94 L I & O for Last 24 hours: Intake & Output 01/11/20 01/12/20 01/13/20 01/14/20 23:59 23:59 23:59 23:59 Intake Total 620 / 820 450 / 450 480 / 480 840 / 840 Output Total 550 / 550 720 / 720 1210 / 1210 700 / 700 Balance 70 / 270 -270 / -270 -730 / -730 140 / 140 Weight 121 lb 4 oz 123 lb 7.342 oz 122 lb 1 oz 122 lb - Constitutional no acute distress - *Routine HEENT Exam Head: Present: normocephalic Eye: Present: EOMI ENT: Present: mucous membranes moist - *Routine Neck Exam Present: supple. Absent: lymphadenopathy - *Routine Respiratory Exam Present: wheezes (bilateral), diminished air movement - *Routine Cardiovascular Exam Present: RRR - *Routine Abdominal Exam Present: soft, normoactive bowel sounds. Absent: tenderness - *Routine Extremities Exam Absent: cyanosis, clubbing, edema - *Routine Skin Exam Present: warm. Absent: rash - *Routine Neurological Exam Present: alert, oriented X3 Assessment and Plan (1) Rhinovirus infection Status: Acute Category: Medical Code(s): B34.8 - Other viral infections of unspecified site (2) Acute exacerbation of chronic obstructive airways disease Status: Acute Category: Medical Code(s): J44.1 - Chronic obstructive pulmonary disease with (acute) exacerbation (3) Acute and chronic respiratory failure with hypoxia Status: Acute Category: Medical Code(s): J96.21 - Acute and chronic respiratory failure with hypoxia (4) COPD (chronic obstructive pulmonary disease) Status: Chronic Category: Medical Code(s): J44.9 - Chronic obstructive pulmonary disease, unspecified (5) Type 2 diabetes mellitus Status: Chronic Category: Medical Code(s): E11.9 - Type 2 diabetes mellitus without complications (6) Hypertension Status: Chronic Category: Medical Code(s): I10 - Essential (primary) hypertension - Assessment and plan all Dx Assessment and Plan for all problems:: Patient is slowly improving. Possible discharge tomorrow.
--- NOTE | 2020-01-14 09:14 | XR_ITS ---
PROCEDURE: XR CHEST 2V CLINICAL HISTORY: COPD exacerbation Shortness of breath COMPARISON: CR XR CHEST PORTABLE from 01/10/2020 FINDINGS: The cardiomediastinal silhouette and pulmonary vascularity are within normal limits. COPD with hyperinflation and attenuation of the peripheral pulmonary vessels with eventration of the diaphragm. No lobar consolidation or collapse. Small nodular opacity left mid lung which may be due to nipple shadow. No acute bony abnormalities. IMPRESSION: COPD. No change with no acute finding Dictated by: Donavan Brito MD 01/14/2020 10:19 Donavan Brito MD in [place] 01/14/2020 10:19
[2020-01-14 11:50] LABS: POC Glucose,Bedside 192 (70-110)
[2020-01-14 17:04] LABS: POC Glucose,Bedside 153 (70-110)
--- NOTE | 2020-01-14 17:13 | PC.NURSE ---
PT IS SITTING UP ON THE SOB EATING DINNER AT [employer] TIME. ALERT AND ORIENTED X4. PT'S O2 SATURATION HAS MAINTAINED 92-97% ON 2 L NC T/O THE SHIFT. PT HAS BEEN AMBULATING IN THE ROOM AND TO THE BATHROOM. LUNG SOUNDS HAVE SCATTERED WHEEZES. BOWEL SOUNDS NORMAL. VSS. WILL CONTINUE TO MONITOR.
[2020-01-14 22:26] LABS: POC Glucose,Bedside 161 (70-110)
[2020-01-15] VITALS (10 sets, daily range): BP systolic 137–171; BP diastolic 64–82; PULSE 76–105; RESP 16–22; TEMP 36.6–36.8; O2SAT 92–98; BMI 17.9
--- NOTE | 2020-01-15 03:21 | PC.NURSE ---
Pt has slept most of this shift. Denies pain/increased soa. Lung sounds continue to have wheezes throughout all lobes. States he is ready to go home.
[2020-01-15 05:17] LABS: POC Glucose,Bedside 117 (70-110)
[2020-01-15 06:27] LABS: Basophils % 0.2 % (0.1-2.0); Eosinophils # 0.1 K/mm3 (0.0-0.4); Eosinophils % 1.1 % (0.1-12.0); Hematocrit 44.7 % (42.0-52.0); Hemoglobin 14.2 g/dL (14.1-18.0); Mean Corpuscular HGB Conc 31.8 g/dL (31.8-35.4); Mean Corpuscular Hemoglobin 28.8 pg (27.0-31.2); Mean Corpuscular Volume 90.6 fl (80-94); Mean Platelet Volume 7.6 fl (7.4-10.4); Monocytes # 0.9 K/mm3 (0.1-1.0); Monocytes % 6.9 % (1.7-9.3); Neutrophils # 10.4 K/mm3 (1.8-7.8); Neutrophils % 76.8 % (37.0-80.0); Platelet Count 371 K/mm3 (142-424); Red Blood Count 4.94 M/mm3 (4.60-6.20); White Blood Count 13.5 K/mm3 (4.8-10.8)
[2020-01-15 06:34] LABS: Chloride 98 mmol/L (98-107); Potassium 4.8 mmoL/L (3.5-5.1); Sodium 138 mmol/L (136-145)
[2020-01-15 06:37] LABS: Anion Gap 13.8 mEq/L (5-15); Blood Urea Nitrogen 28 mg/dl (9-20); Calcium 9.1 mg/dl (8.4-10.2); Carbon Dioxide 31 mmol/L (22.0-30.0); Creatinine Clearance Estimated 52 mL/min (50-200); Estimated Glomerular Filt Rate 95 ml/min (>60); GFR (African American) 115 ML/MIN (>60); Glucose 125 mg/dl (74-100)
--- NOTE | 2020-01-15 09:03 | HMH.ACPN2 ---
Internal Medicine - PN: Subj *Date: 01/15/20 *Time: 07:45 Interval history: Pt is sitting up on the side of the bed. He has increased shortness of breath with coughing episodes and has a hard time producing thick green sputum. He denies any nausea or pain. Exam Vital signs and Labs for Last 24 Hours: Temp Pulse Resp BP Pulse Ox 97.8 F 105 H 22 137/64 96 01/15/20 07:25 01/15/20 07:25 01/15/20 07:25 01/15/20 07:25 01/15/20 07:41 Laboratory Results - last 24 hr 01/14/20 11:42: POC Glucose 192 H 01/14/20 16:52: POC Glucose 153 H 01/14/20 19:59: POC Glucose 161 H 01/15/20 05:08: POC Glucose 117 H 01/15/20 06:13: WBC 13.5 H, RBC 4.94, Hgb 14.2, Hct 44.7, MCV 90.6, MCH 28.8, MCHC 31.8, RDW 14.0, Plt Count 371, MPV 7.6, Neut % (Auto) 76.8, Lymph % (Auto) 15.0, Brewster % (Auto) 6.9, Eos % (Auto) 1.1, Baso % (Auto) 0.2, Neut # (Auto) 10.4 H, Lymph # (Auto) 2.0, Brewster # (Auto) 0.9, Eos # (Auto) 0.1, Baso # (Auto) 0.0 01/15/20 06:13: Sodium 138, Potassium 4.8, Chloride 98, Carbon Dioxide 31 H, Anion Gap 13.8, BUN 28 H, Creatinine 0.80, Estimated Creat Clear 52, Estimated GFR 95, Est GFR ( Amer) 115, Glucose 125 H, Calcium 9.1 I & O for Last 24 hours: Intake & Output 01/12/20 01/13/20 01/14/20 01/15/20 11:59 11:59 11:59 11:59 Intake Total 690 / 690 480 / 480 840 / 840 1440 / 1440 Output Total 770 / 770 1150 / 1150 1060 / 1060 1680 / 1680 Balance -80 / -80 -670 / -670 -220 / -220 -240 / -240 Weight 122 lb 6 oz 122 lb 1 oz 122 lb 121 lb 8 oz - Constitutional no acute distress - *Routine HEENT Exam Head: Present: normocephalic ENT: Present: mucous membranes moist - *Routine Respiratory Exam Absent: respiratory distress Comments: diminished at bilateral bases with rhonchi and wheezes throughout; note productive cough - *Routine Cardiovascular Exam Present: RRR - *Routine Abdominal Exam Present: soft, normoactive bowel sounds. Absent: tenderness, distended, guarding, firm, rigid - *Routine Extremities Exam Present: full ROM, pulses intact. Absent: edema, calf tenderness - *Routine Neurological Exam Present: alert, oriented X3, moving all extremities, normal speech Assessment and Plan (1) Rhinovirus infection Status: Acute Category: Medical Code(s): B34.8 - Other viral infections of unspecified site (2) Acute exacerbation of chronic obstructive airways disease Status: Acute Category: Medical Code(s): J44.1 - Chronic obstructive pulmonary disease with (acute) exacerbation (3) Acute and chronic respiratory failure with hypoxia Status: Acute Category: Medical Code(s): J96.21 - Acute and chronic respiratory failure with hypoxia (4) COPD (chronic obstructive pulmonary disease) Status: Chronic Category: Medical Code(s): J44.9 - Chronic obstructive pulmonary disease, unspecified (5) Type 2 diabetes mellitus Status: Chronic Category: Medical Code(s): E11.9 - Type 2 diabetes mellitus without complications (6) Hypertension Status: Chronic Category: Medical Code(s): I10 - Essential (primary) hypertension - Assessment and plan all Dx Assessment and Plan for all problems:: per Dr. Roach
--- NOTE | 2020-01-15 12:53 | DIET.NUTRFU ---
Pt says he is eating well/at baseline- intakes 50%, BG moderate- ~140, weight stable. No nutritional concerns at this time, continuing to monitor.
[2020-01-15 14:38] LABS: POC Glucose,Bedside 147 (70-110)
--- NOTE | 2020-01-15 15:08 | PC.NURSE ---
PT AO*4, ABLE TO AMBULATE INDEPENDENTLY TO , HAS BEEN SHOWERED TODAY WITH LINEN CHANGE, PT APPETITE HAS IMPROVED, DENIES N/V/D, INSPIRATORY AND EXPIRATORY WHEEZES NOTED ACROSS UPPER LUNG LENTZ, DIMINISHED T/O, DENIES SOA, INTERMITTENT PRODUCTIVE COUGH NOTED, 2L NC FOR O2 SUPPORT, O2 SAT 94-95%, PT AMBULATED IN HALLWAY WITH PT, TOLERATED WELL, NO NEEDS AT THIS TIME WILL CONTINUE TO MONITOR.
[2020-01-15 17:40] LABS: POC Glucose,Bedside 229 (70-110)
--- NOTE | 2020-01-15 19:13 | PC.NURSE ---
report given to jose
[2020-01-15 21:33] LABS: POC Glucose,Bedside 217 (70-110)
[2020-01-16] VITALS: BP 146/65; PULSE 91; RESP 16; TEMP 36.4; O2SAT 97
--- NOTE | 2020-01-16 03:28 | PC.NURSE ---
Pt has rested well t/o this shift. Pt is A&Ox4. Inspiratory rhonchi and expiratory wheezing heard scattered t/o all lung gandhi per auscultation. Pt has had a dry non productive cough intermittently during awake hours. Pt has urinated clear, dark yellow urine per urinal this shift. Pt has tolerated RA during awake hours in the low to mid 90's (90-94%) and 2LNC during sleeping hours for comfort with O2 sat at upper 90's (96-98%). Pt was educated and encouraged to use IS during awake hours and has done so this shift. At best, pt can reach 1250 on IS. Pt has required 5 units of insulin coverage at 2100 with a FSBS of 217. No other acute changes or complaints at this time. Call light remains in reach. Will continue to monitor.
[2020-01-16 04:00] VITALS: BP 153/85; PULSE 83; RESP 16; TEMP 36.3; O2SAT 97
[2020-01-16 05:08] VITALS: BMI 17.6
[2020-01-16 05:57] LABS: POC Glucose,Bedside 127 (70-110)
[2020-01-16 06:02] VITALS: PULSE 77; PULSE 84; O2SAT 89
[2020-01-16 07:42] VITALS: BP 161/86; PULSE 98; RESP 18; TEMP 36.6; O2SAT 98
--- NOTE | 2020-01-16 08:03 | HMH.ACPN2 ---
Internal Medicine - PN: Subj *Date: 01/16/20 *Time: 08:03 Interval history: Patient states he feels he is improved today. He did sleep some last night. He is eating as usual. He continues with a cough which is sometimes productive. He denies chest pain. He is short of breath on exertion. He is voiding QS. He does ambulate in the room. O2 sat noted to be 89 on room air and 98 with oxygen. Exam Vital signs and Labs for Last 24 Hours: Temp Pulse Resp BP Pulse Ox 97.8 F 98 H 18 161/86 H 98 01/16/20 07:42 01/16/20 07:42 01/16/20 07:42 01/16/20 07:42 01/16/20 07:42 Laboratory Results - last 24 hr 01/15/20 10:51: POC Glucose 147 H 01/15/20 16:53: POC Glucose 229 H 01/15/20 20:44: POC Glucose 217 H 01/16/20 05:44: POC Glucose 127 H I & O for Last 24 hours: Intake & Output 01/13/20 01/14/20 01/15/20 01/16/20 11:59 11:59 11:59 11:59 Intake Total 480 / 480 840 / 840 1440 / 1440 480 / 480 Output Total 1150 / 1150 1060 / 1060 1680 / 1680 400 / 400 Balance -670 / -670 -220 / -220 -240 / -240 80 / 80 Weight 122 lb 1 oz 122 lb 121 lb 8 oz 119 lb 9 oz - Constitutional no acute distress, thin Comments: Less dyspneic with talking. Sitting crosslegged in the bed is breakfast. - *Routine Respiratory Exam Present: other Comments: Has better air exchange posteriorly. Do hear some scattered wheezing inspiratory and expiratory with scattered rhonchi. - *Routine Cardiovascular Exam Present: RRR - *Routine Abdominal Exam Present: soft, normoactive bowel sounds. Absent: tenderness - *Routine Extremities Exam Absent: edema, calf tenderness - *Routine Neurological Exam Present: alert, oriented X3 Assessment and Plan (1) Rhinovirus infection Status: Acute Category: Medical Code(s): B34.8 - Other viral infections of unspecified site (2) Acute exacerbation of chronic obstructive airways disease Status: Acute Category: Medical Code(s): J44.1 - Chronic obstructive pulmonary disease with (acute) exacerbation (3) Acute and chronic respiratory failure with hypoxia Status: Acute Category: Medical Code(s): J96.21 - Acute and chronic respiratory failure with hypoxia (4) COPD (chronic obstructive pulmonary disease) Status: Chronic Category: Medical Code(s): J44.9 - Chronic obstructive pulmonary disease, unspecified (5) Type 2 diabetes mellitus Status: Chronic Category: Medical Code(s): E11.9 - Type 2 diabetes mellitus without complications (6) Hypertension Status: Chronic Category: Medical Code(s): I10 - Essential (primary) hypertension - Assessment and plan all Dx Assessment and Plan for all problems:: Continue current care. Possibly home soon.
--- NOTE | 2020-01-16 10:10 | PC.NURSE ---
noticed that pt does not have a discharge summary in. Pt does have discharge orders. Called Dr. Roach's office and spoke to Martita. Asked her to let Dr. Roach know that pt will need a discharge summary put in. She verbalized understanding and will relay the message.
--- NOTE | 2020-01-16 16:35 | HMH.DCSUM ---
General - General Admission date:: 01/10/20 Discharge date: 01/16/20 HPI HPI: Mr. Trejo is a 74-year-old male with a history of type 2 diabetes mellitus, COPD, hypertension, and hyperlipidemia who presented to the emergency room with progressive shortness of breath and worsening of his cough. He was noted to be on O2 at 2 L. He had poor inspiratory effort with use of his accessory muscles. He was able to speak in short sentences. He had been on antibiotics of Zithromax and Cefdinir without any help as well as a short steroid burst. He was placed on BiPAP, given IV steroids and antibiotics to include Rocephin and a Zithromax. ABG's with evaluation revealed a pH of 7.36, PCO2 of 53.5, PO2 of 85.4 and a bicarb of 29.5. Patient remained alert and oriented x3. After initiation of BiPAP, nebulizer treatment breathing treatment, and IV steroids/antibiotics patient seemed to improve. He had some wheezes but he was moving air much better. Also noted was a mild leukocytosis. X-ray demonstrated hyperinflated lungs without any acute findings. Cardiac enzymes were normal. Also noted was a positive entero/rhino PCR. COVID IgG and IgM were both negative. Urine was negative as well. At the time of exam patient was a little better. He was still very dyspneic. He had been trying to eat dinner. Hospital Course Hospital Course: Patient was initially started on antibiotics of Zithromax and cefdinir as well as IV steroids and duo nebs. With noted positive entero-/rhino PCR antibiotics were then discontinued. Covid IgG and IgM were both negative. Patient remained short of breath with any exertion during conversation and had a nonproductive cough after admission. CBC on 01/10 revealed a white blood cell count of 13,800 which was felt to be elevated due to the steroids. Budesonide neb was added. Solu-Medrol had to be discontinued due to possible reaction. Patient was started on dexamethasone. He continued with a cough. Robitussin DM helped very little. He was started on Hycodan as needed which did help the cough. Patient slowly improved. On 01/15/2020 he had increased shortness of breath with coughing episodes.e was producing some thick green sputum. On 01/16/2020 he was feeling improved. He was able to sleep and was having less of a cough. He was eating as usual which was not very much. He continued to deny chest pain. He had shortness of breath on exertion. Lungs did sound better with better air movement and less wheezing. O2 sat was noted to be 89% on room air and 98% with oxygen. On this date he was felt stable to be discharged home Patient was discharged home in stable condition. He was to limit his activity and continue with the same diet. He was to follow-up with Dr. Roach on January 16, 2020. He was to start on cefdinir twice daily x10 days and continue with budesonide inhalation twice daily. Other meds as per medication reconciliation sheet. Objective Vital signs: Temp Pulse Resp BP Pulse Ox 97.8 F 98 H 18 161/86 H 98 01/16/20 07:42 01/16/20 07:42 01/16/20 07:42 01/16/20 07:42 01/16/20 07:42 Narrative: Exam Vital signs and Labs for Last 24 Hours: Temp Pulse Resp BP Pulse Ox 97.8 F 98 H 18 161/86 H 98 01/16/20 07:42 01/16/20 07:42 01/16/20 07:42 01/16/20 07:42 01/16/20 07:42 Laboratory Results - last 24 hr 01/15/20 10:51: POC Glucose 147 H 01/15/20 16:53: POC Glucose 229 H 01/15/20 20:44: POC Glucose 217 H 01/16/20 05:44: POC Glucose 127 H I & O for Last 24 hours: Intake & Output 01/13/20 01/14/20 01/15/20 01/16/20 11:59 11:59 11:59 11:59 Intake Total 480 / 480 840 / 840 1440 / 1440 480 / 480 Output Total 1150 / 1150 1060 / 1060 1680 / 1680 400 / 400 Balance -670 / -670 -220 / -220 -240 / -240 80 / 80 Weight 122 lb 1 oz 122 lb 121 lb 8 oz 119 lb 9 oz - Constitutional no acute distress, thin Comments: Less dyspneic with talking. Sitting cross
== END 2020-01-16 10:23 | disposition home or self-care (01) ==
LOC: ER 09:27 → 2ND 12:46
PROVIDERS: Emergency Medicine; Family Medicine; Admitting Provider Family Medicine; Emergency Provider Emergency Medicine; PCP Family Medicine; Visit Provider Family Medicine
DX: J44.1 Chronic obstructive pulmonary disease with (acute) exacerbation (principal); J20.6 Acute bronchitis due to rhinovirus; J44.0 Chronic obstructive pulmonary disease with (acute) lower respiratory infection; E11.9 Type 2 diabetes mellitus without complications; I10 Essential (primary) hypertension; Z87.891 Personal history of nicotine dependence; J96.21 Acute and chronic respiratory failure with hypoxia; Z79.84 Long term (current) use of oral hypoglycemic drugs; Z79.52 Long term (current) use of systemic steroids
CPT/HCPCS: 36415; 71045; 71046; 80048; 80053; 81001; 82803; 82962; 84132; 84484; 85007; 85025; 86328; 87070; 87205; 87581; 87633; 87798; 93005; 94640; 94660; 94760; 94761; 96365; 96375; 97116; 97162; 99284; G0378; J0456

== ENCOUNTER → 2020-02-05 11:18 | Outpatient (CLI) | payer MEDICARE, OTHER, SELFPAY ==
[2020-02-05 13:51] LABS: Coronavirus 19 IgG Antibody Negative (Negative); Coronavirus 19 IgM Antibody Negative (Negative)
== END ==
PROVIDERS: Visit Provider Ophthalmology
DX: Z01.818 Encounter for other preprocedural examination (principal); Z98.41 Cataract extraction status, right eye
CPT/HCPCS: 36415; 86328

== ENCOUNTER 2020-02-06 09:55 | Day surgery (SDC) | payer MEDICARE, OTHER, SELFPAY ==
[2020-01-31 09:22] VITALS: BMI 18.4
[2020-02-06 10:39] VITALS: BP 144/100; PULSE 68; RESP 18; TEMP 36.4; O2SAT 96
[2020-02-06 10:56] LABS: POC Glucose,Bedside 120 (70-110)
[2020-02-06 11:40] VITALS: BP 167/78; PULSE 68; RESP 16; O2SAT 99
[2020-02-06 11:45] VITALS: BP 168/80; PULSE 70; RESP 16; O2SAT 100
[2020-02-06 11:50] VITALS: BP 165/75; PULSE 70; RESP 16; O2SAT 100
[2020-02-06 11:55] VITALS: BP 165/79; PULSE 72; RESP 16; O2SAT 100
[2020-02-06 11:56] VITALS: BP 150/75; PULSE 76; RESP 16; TEMP 36.6; O2SAT 98
== END 2020-02-06 12:07 | disposition home or self-care (01) ==
LOC: OR 09:57
PROVIDERS: PCP Family Medicine; Visit Provider Ophthalmology
DX: H25.813 Combined forms of age-related cataract, bilateral (principal); J44.9 Chronic obstructive pulmonary disease, unspecified; M19.90 Unspecified osteoarthritis, unspecified site; Z86.73 Personal history of transient ischemic attack (TIA), and cerebral infarction without residual deficits
CPT/HCPCS: 66984; 82962; V2632

== ENCOUNTER → 2020-04-03 12:18 | Outpatient (CLI) | payer MEDICARE, OTHER, SELFPAY ==
--- NOTE | 2020-04-03 12:43 | CT_ITS ---
PROCEDURE: CT LUNG SCREENING CLINICAL INDICATION: LDCT former smoker quit 2 years ago 100 pack year smoking history copd, emphysema prior 03/09/18 COMPARISON: CT CHESTWW CT chest wo/w con from 07/12/2018 TECHNIQUE: The exam was performed on a [employer] Light Speed [address] scanner using 2.90 mGy CTDI. A low dose helical CT CHEST was performed on a multi-detector scanner. All CT scans at the facility use one or more dose reduction, viz: automated exposure control, ma/kV adjustment per patient size (including targeted exams where dose is matched to indication, i.e. head), or iterative reconstruction technique. The LDCT was performed in a facility that meets the criteria for the screening program. Data regarding this exam was submitted to ACR which is an approved registry. The order for this exam indicates that it came as a result of a lung cancer screening counseling shard decision-making visit that included all the elements required of such a visit including smoking cessation. The radiologist interpreting this exam meets the [facility] criteria for the LDCT lung cancer screening program. The exam is reported using the Lung-RADS classification scale and reported to the ACR registry. NOTE: This study was performed for the specific purposes of lung cancer screening and is not an alternative to diagnostic chest CT. RADIATION DOSE: CTDI vol(CT dose Index-volume) = 2.90mG DLP (Dose Length Product) = 115.16 mGcm FINDINGS: Centrilobular emphysema with COPD changes and scattered areas of scarring with bronchial thickening. No suspicious pulmonary nodule identified. OTHER FINDINGS: Coronary artery calcifications IMPRESSION: Lung-RADS Category 1 Negative Follow-up: Continue annual screening with LDCT in 12 months Dictated by: Donavan Brito MD 04/08/2020 06:36 Donavan Brito MD in [place] 04/08/2020 06:36
[2020-04-03 13:30] VITALS: PULSE 77; PULSE 80
== END ==
PROVIDERS: PCP Psychiatry & Neurology Sleep Medicine; Visit Provider Internal Medicine Pulmonary Disease
DX: Z87.891 Personal history of nicotine dependence (principal); Z12.2 Encounter for screening for malignant neoplasm of respiratory organs; J44.9 Chronic obstructive pulmonary disease, unspecified
CPT/HCPCS: 71271; 94060; 94618; 94640

== ENCOUNTER 2021-01-02 17:35 | Emergency (ER) | payer MEDICARE, OTHER, SELFPAY ==
[2021-01-02 17:36] VITALS: BP 182/90; PULSE 73; RESP 16; TEMP 36.8; O2SAT 98; BMI 20.7
[2021-01-02 17:50] VITALS: BP 188/86; PULSE 76; RESP 18; O2SAT 94
--- NOTE | 2021-01-02 17:52 | HMH.EDGENADL ---
ED Disposition Clinical Impression: Weakness Disposition: Home, Self-Care Condition on Discharge: Good Referrals: Leonid Roach MD [Primary Care Provider] - - Critical Care Critical Care Time: No Attestation: On 01/02/21, the high probability of a clinically significant, sudden or life threatening deterioration of the following system(s) required my full and direct attention, intervention and personal management. The time I documented below is in addition to time spent performing reported procedures but includes the following listed in this critical care notation. Medical Decision Making - Medical Records Medical records reviewed: Yes: I reviewed the patient's medical records. - Edwin Inquiry Pt receiving controlled substance: No Vital Signs: 01/02/21 17:36 01/02/21 17:50 Temperature 98.3 F Temperature Source Oral Pulse Rate 76 Pulse Rate [Right Brachial] 73 Respiratory Rate 16 18 Blood Pressure 188/86 H Blood Pressure [Right Arm] 182/90 H Blood Pressure Mean [Right Arm] 120 Blood Pressure Source [Right Arm] Automatic Cuff Blood Pressure Position [Right Arm] Sitting 02 Sat by Pulse Oximetry 98 94 L Oxygen Delivery Method Room Air - Lab Data Lab Results 01/02/21 18:42: Sodium 141, Potassium 4.9, Chloride 103, Carbon Dioxide 26, Anion Gap 16.9 H, BUN 15, Creatinine 0.80, Estimated Creat Clear 59, Estimated GFR 95, Est GFR ( Amer) 115, Glucose 140 H, Calcium 9.8, Total Bilirubin 0.3, AST 24, ALT 16, Alkaline Phosphatase 123, Troponin I < 0.01, Total Protein 7.1, Albumin 4.6, Globulin 2.5, Albumin/Globulin Ratio 1.8, Procalcitonin 0.053 01/02/21 18:42: SARS-CoV-2 (PCR) Not detected, Influenza A Untype (PCR) Not detected, Influenza Type B (PCR) Not detected 01/02/21 19:14: WBC 9.3, RBC 4.72, Hgb 14.1, Hct 44.2, MCV 93.6, MCH 29.8, MCHC 31.8, RDW 14.9, Plt Count 364, MPV 9.2, Neut % (Auto) 58.2, Lymph % (Auto) 32.2, Millard % (Auto) 4.3, Eos % (Auto) 3.9, Baso % (Auto) 1.4, Neut # (Auto) 5.4, Lymph # (Auto) 3.0, Millard # (Auto) 0.4, Eos # (Auto) 0.4, Baso # (Auto) 0.1 Result diagrams: 01/02/21 19:14 01/02/21 18:42 Orders (Tests/Meds): ORDERS Category Date Time Status Troponin I Q3H Lab 01/02/21 21:15 Ordered Troponin I Q3H Lab 01/03/21 00:15 Ordered Urinalysis and Microscopic Stat Lab 01/02/21 18:01 Ordered ECG Request by /Lorne Stat Y 01/02/21 18:01 Ordered Medical Decision Narrative: Patient is a 75-year-old male presents the ED today with this. Patient is well-appearing on initial evaluation, differential diagnosis includes stroke, intracranial bleeding, pneumonia, urinary tract infection, infection. Will further evaluate with CT head, CBC CMP, chest x-ray, procalcitonin, urinalysis. Patient CT and CBC and CMP have been reviewed with no evidence of actionable abnormalities, patient has old strokes evident on scan, but otherwise nothing new. Patient is otherwise well on examination and reassessment, and improved from prior, patient states that he got a small nap while we are waiting for his work-up to come back and felt much better afterward, given that patient has had a negative work-up thus far, no neurologic symptoms on examination consistent with stroke currently, and all his next examination findings earlier were due to old stroke and are consistent now patient can be discharged. I did offer patient admission for 2 episodes of presyncope earlier today as he does have several medical problems, and could do with observation overnight, however patient states that he would rather go home at this time. I do believe this is reasonable, I discussed with the patient return precautions return to ED with any new or worsening symptoms he does verbalize understanding with this plan. General Adult HPI - General Stated complaint: sob/fainting spells Time Seen by Provider: 01/02/21 17:45 - History of Present Illness HPI narrative: Patient presents the ED today with his so
--- NOTE | 2021-01-02 18:01 | ECG_ITS ---
APPROVED REPORT Exam: Resting ECG HR:75 bpm ECG Measurements Heart Rate 75 AXES KS 150 P 74 QRSd 94 QRS 60 QT 390 T 69 QTc 435 Conclusion Normal sinus rhythm Normal ECG Electronically signed by : Jhonny Young MD 01/03/2021 09:17:01
--- NOTE | 2021-01-02 18:01 | CT_ITS ---
PROCEDURE INFORMATION: Exam: CT Head Without Contrast Exam date and time: 01/02/2021 6:01 PM Age: 75 years old Clinical indication: Other: Generalized weakness; Additional info: Intracranial bleeding concern TECHNIQUE: Imaging protocol: Computed tomography of the head without contrast. 3D rendering (Not supervised by radiologist): MIP and/or 3D reconstructed images were created by the technologist. Radiation optimization: All CT scans at this facility use at least one of these dose optimization techniques: automated exposure control; mA and/or kV adjustment per patient size (includes targeted exams where dose is matched to clinical indication); or iterative reconstruction. COMPARISON: [facility] CT HEAD W/O CONTRAST 09/21/2016 5:13 PM FINDINGS: Brain: Prominent sulci. Patchy hypodensity of the cerebral white matter which are nonspecific but likely secondary to microangiopathic changes. Cerebral ventricles: The ventricles are prominent secondary to diffuse volume loss/atrophy. Paranasal sinuses: Moderate opacification of the maxillary sinuses and mild mucoperiosteal thickening remainder of paranasal sinuses. Mastoid air cells: Visualized mastoid air cells are well aerated. Bones/joints: Unremarkable. No acute fracture. Soft tissues: Unremarkable. IMPRESSION: 1. Chronic age related changes but no evidence of acute intracranial pathology. 2. Moderate opacification of the maxillary sinuses and mild mucoperiosteal thickening remainder of paranasal sinuses.
--- NOTE | 2021-01-02 18:01 | XR_ITS ---
PROCEDURE INFORMATION: Exam: XR Chest Exam date and time: 01/02/2021 6:01 PM Age: 75 years old Clinical indication: Shortness of breath and other: Generalized weakness; Additional info: Infectious workup TECHNIQUE: Imaging protocol: XR of the chest. Views: 1 view. COMPARISON: CR XR CHEST 2V 01/14/2020 9:54 AM FINDINGS: Lungs: No evidence of acute pulmonary process. Pleural spaces: Unremarkable. No pleural effusion. No pneumothorax. Heart/Mediastinum: Unremarkable. No cardiomegaly. Bones/joints: Unremarkable. IMPRESSION: No evidence of acute pulmonary process.
[2021-01-02 18:56] LABS: Coronavirus 19, PCR Not Detected (NotDetected); Influenza A, PCR Not Detected (NotDetected); Influenza B, PCR Not Detected (NotDetected)
--- NOTE | 2021-01-02 18:56 | PC.NURSE ---
Lab called and advised specimens was clotted. Asked for someone to draw. Daniel advised someone would collect.
[2021-01-02 19:00] VITALS: BP 188/87; PULSE 69; RESP 14; O2SAT 96
[2021-01-02 19:00] LABS: Chloride 103 mmol/L (98-107); Potassium 4.9 mmoL/L (3.5-5.1); Sodium 141 mmol/L (136-145)
[2021-01-02 19:03] LABS: Alanine Aminotransferase 16 U/L (12-78); Albumin Level 4.6 g/dl (3.5-5.0); Albumin/Globulin Ratio 1.8 (1.1-1.8); Alkaline Phosphatase 123 U/L (38-126); Anion Gap 16.9 mEq/L (5-15); Aspartate Amino Transferase 24 U/L (17-59); Bilirubin,Total 0.3 mg/dl (0.2-1.3); Blood Urea Nitrogen 15 mg/dl (9-20); Carbon Dioxide 26 mmol/L (22.0-30.0); Creatinine Clearance Estimated 59 mL/min (50-200); Estimated Glomerular Filt Rate 95 ml/min (>60); GFR (African American) 115 ML/MIN (>60); Globulin 2.5 g/dL (1.3-3.2); Total Protein,Serum 7.1 g/dl (6.3-8.2)
[2021-01-02 19:04] LABS: Calcium 9.8 mg/dl (8.4-10.2); Glucose 140 mg/dl (74-100)
[2021-01-02 19:21] LABS: Basophils # 0.1 K/mm3 (0-0.2); Basophils % 1.4 % (0.1-2.0); Eosinophils # 0.4 K/mm3 (0.0-0.4); Eosinophils % 3.9 % (0.1-12.0); Hematocrit 44.2 % (42.0-52.0); Hemoglobin 14.1 g/dL (14.1-18.0); Lymphocytes % 32.2 % (10-50); Mean Corpuscular HGB Conc 31.8 g/dL (31.8-35.4); Mean Corpuscular Hemoglobin 29.8 pg (27.0-31.2); Mean Corpuscular Volume 93.6 fl (80-94); Mean Platelet Volume 9.2 fl (7.4-10.4); Monocytes # 0.4 K/mm3 (0.1-1.0); Monocytes % 4.3 % (1.7-9.3); Neutrophils # 5.4 K/mm3 (1.8-7.8); Neutrophils % 58.2 % (37.0-80.0); Platelet Count 364 K/mm3 (142-424); Red Blood Count 4.72 M/mm3 (4.60-6.20); Red Cell Distribution Width 14.9 % (11.5-17.5); White Blood Count 9.3 K/mm3 (4.8-10.8)
[2021-01-02 19:21] LABS: Troponin I < 0.01 ng/ml (0.00-0.034)
[2021-01-02 19:30] VITALS: BP 185/94; PULSE 76; RESP 14; O2SAT 95
[2021-01-02 19:31] LABS: Procalcitonin 0.053 ng/mL (0.0-2.0)
[2021-01-02 20:00] VITALS: BP 199/97; PULSE 73; RESP 14; O2SAT 96
[2021-01-02 20:11] VITALS: BP 185/92; PULSE 67; RESP 16; TEMP 36.8; O2SAT 95
== END 2021-01-02 20:18 | disposition home or self-care (01) ==
PROVIDERS: Emergency Provider Student in an Organized Health Care Education/Training Program; PCP Family Medicine
DX: R53.1 Weakness (principal); E78.5 Hyperlipidemia, unspecified; I10 Essential (primary) hypertension; Z86.73 Personal history of transient ischemic attack (TIA), and cerebral infarction without residual deficits; J44.9 Chronic obstructive pulmonary disease, unspecified; E11.9 Type 2 diabetes mellitus without complications; Z87.891 Personal history of nicotine dependence; R06.02 Shortness of breath
CPT/HCPCS: 70450; 71045; 80053; 84145; 84484; 85025; 93005; 99283; C9803; U0003; U0005

== ENCOUNTER → 2021-01-21 12:41 | Outpatient (CLI) | payer MEDICARE, OTHER, SELFPAY | PROVIDERS: PCP Family Medicine; Visit Provider Family Medicine | DX: I50.33 Acute on chronic diastolic (congestive) heart failure (principal); I63.9 Cerebral infarction, unspecified | CPT/HCPCS: 93306 ==

== ENCOUNTER 2021-01-25 20:27 | Emergency (ER) | payer MEDICARE, OTHER, SELFPAY ==
[2021-01-25] VITALS (9 sets, daily range): BP systolic 157–218; BP diastolic 73–111; PULSE 61–78; RESP 16–20; TEMP 36.7–37.1; O2SAT 93–97; BMI 22.0
--- NOTE | 2021-01-25 20:28 | CT_ITS ---
PROCEDURE INFORMATION: Exam: CT Head Without Contrast Exam date and time: 01/25/2021 8:28 PM Age: 75 years old Clinical indication: Weakness, extremity; Additional info: Stroke TECHNIQUE: Imaging protocol: Computed tomography of the head without contrast. Radiation optimization: All CT scans at this facility use at least one of these dose optimization techniques: automated exposure control; mA and/or kV adjustment per patient size (includes targeted exams where dose is matched to clinical indication); or iterative reconstruction. Other technique: STROKE PROTOCOL was implemented. COMPARISON: CT HEAD/BRAIN WO CON 01/02/2021 6:19 PM FINDINGS: Evolving acute/subacute ischemic infarct in the LEFT paramedian frontal lobe, LEFT lentiform nucleus and LEFT centrum semiovale without evidence hemorrhagic transformation. . Underlying moderate chronic microvascular ischemic disease and generalized atrophy. Ventriculomegaly with mildly dilated/prominent sulci and basal cisterns suspicious for chronic communicating/normal pressure hydrocephalus. . Rest of the brain parenchyma, ventricles, sulci and basal cisterns are unremarkable. Mild chronic sinonasal mucoperiosteal thickening. No mastoid effusion. IMPRESSION: Evolving ACUTE/SUBACUTE ISCHEMIC INFARCTS in the LEFT paramedian frontal lobe, LEFT lentiform nucleus and LEFT centrum semiovale without evidence hemorrhagic transformation. ASSESSMENT: ASPECTS ([place] Stroke Program Early CT Score) is 8.
--- NOTE | 2021-01-25 20:28 | CT_ITS ---
PROCEDURE INFORMATION: Exam: CT Angiography Head With Contrast, Arteriography Exam date and time: 01/25/2021 8:29 PM Age: 75 years old Clinical indication: Other: Stroke TECHNIQUE: Imaging protocol: Computed tomography angiography of the head with contrast. Exam focused on the arteries. COMPARISON: No relevant prior studies available. FINDINGS: Intracranial INTERNAL CAROTID arteries: Kxsi-xk-hyaptmpw predominantly calcific plaque in the mid-distal ICA with chronic narrowing of the RIGHT internal carotid artery without acute flow-limiting stenosis. Diffuse niyr-ii-qhsvbnml narrowing of the LEFT intracranial internal carotid artery. . MIDDLE cerebral arteries: THROMBOTIC OCCLUSION OF of the distal M1 segment of LEFT MCA extending into its proximal M2 branches. Markedly attenuated and paucity of M2, M3 and cortical branches of the LEFT MCA. RIGHT M1, M2 and their distal visualized branches are without flow limiting stenosis. . ANTERIOR cerebral arteries: Asymmetric narrowing and decreased enhancement of the A1, A2 segments of the LEFT FAHEEM. RIGHT A1, A2 and their distal visualized branches are unremarkable without flow limiting stenosis. Anterior communicating artery is normal. . VERTEBRAL arteries: Intracranial vertebral arteries and their visualized branches are without flow limiting stenosis. . BASILAR artery: The basilar artery and its visualized proximal branches are without flow limiting stenosis. . POSTERIOR cerebral arteries: P1, P2 and their distal visualized branches are without flow limiting stenosis. IMPRESSION: 1. THROMBOTIC OCCLUSION OF of the distal M1 segment of LEFT MCA extending into its proximal M2 branches. 2. Asymmetric narrowing and decreased enhancement of the A1, A2 segments of the LEFT FAHEEM. 3. Evolving ACUTE/SUBACUTE ISCHEMIC INFARCTS in the LEFT paramedian frontal lobe, LEFT lentiform nucleus and LEFT centrum semiovale without evidence hemorrhagic transformation. 4. RECOMMEND MRI FOR FURTHER EVALUATION. PROCEDURE INFORMATION: Exam: CT Angiography Neck With Contrast Exam date and time: 01/25/2021 8:29 PM Age: 75 years old Clinical indication: Other: Stroke TECHNIQUE: Imaging protocol: Computed tomography angiography of the neck with contrast. 3D rendering (Not supervised by radiologist): MIP and/or 3D reconstructed images were created by the technologist. Radiation optimization: All CT scans at this facility use at least one of these dose optimization techniques: automated exposure control; mA and/or kV adjustment per patient size (includes targeted exams where dose is matched to clinical indication); or iterative reconstruction. Contrast material: ISOVUE 370; Contrast volume: 75 ml; Contrast route: INTRAVENOUS (IV); COMPARISON: No relevant prior studies available. FINDINGS: THORACIC VESSELS: Atherosclerotic disease of the visualized aortic arch without aortic aneurysm or dissection. No significant narrowing of the origin of the neck vessels. . CAROTID VESSELS: Common carotid arteries: Eccentric and circumferential chronic calcific/noncalcific plaque along the byers of the common carotid arteries without acute flow limiting stenosis. . Cervical internal CAROTID arteries: Mtrl-aq-pronlvjw RIGHT and moderately severe complex ulcerated plaque at the LEFT carotid bifurcation extending to the carotid bulb with less than 50% narrowing on the RIGHT and near complete focal occlusion (greater than 99%) with a string sign in the distal LEFT carotid bulb/proximal LEFT ICA. Asymmetric diffuse attenuation of the remainder of
--- NOTE | 2021-01-25 20:30 | XR_ITS ---
PROCEDURE INFORMATION: Exam: XR Chest Exam date and time: 01/25/2021 8:30 PM Age: 75 years old Clinical indication: Other: Stroke TECHNIQUE: Imaging protocol: XR of the chest. Views: 1 view. COMPARISON: CR XR CHEST PORTABLE 01/02/2021 6:17 PM FINDINGS: Moderately severe emphysema with bullous changes predominately in the lung bases. Extensive scarring with calcific granulomas in the lung apices bilaterally. Blunting of the RIGHT costophrenic angle suggestive of small pleural effusion/thickening. Cardiomediastinal silhouette is normal. IMPRESSION: Stable cardiopulmonary changes without new abnormality.
--- NOTE | 2021-01-25 20:30 | HMH.EDGENADL ---
ED Disposition Clinical Impression: CVA (cerebral vascular accident) Qualifiers: CVA mechanism: thrombosis Precerebral and cerebral artery: middle cerebral artery Laterality of affected vessel: right Qualified Code(s): I63.311 - Cerebral infarction due to thrombosis of right middle cerebral artery Disposition: Xfer Short-Term Hosp Condition on Discharge: Fair Referrals: Amador Wilson MD [Primary Care Provider] - Forms: Transfer Record - ED - Critical Care Critical Care Time: No Attestation: On , the high probability of a clinically significant, sudden or life threatening deterioration of the following system(s) required my full and direct attention, intervention and personal management. The time I documented below is in addition to time spent performing reported procedures but includes the following listed in this critical care notation. Medical Decision Making - Medical Records Medical records reviewed: Yes: I reviewed the patient's medical records. MR Comment: Reviewed emergency department visit from 01/02/2021. Reviewed MRI report from [facility] 01/10/2021. This showed early subacute infarcts in the anterior left frontal and left basal ganglia including the head of the left caudate and lentiform nucleus with a small amount of hemorrhage in the left head of the caudate. - Edwin Inquiry Pt receiving controlled substance: No Vital Signs: 01/25/21 20:24 01/25/21 21:02 01/25/21 21:06 Temperature 98.8 F Temperature Source Oral Pulse Rate 65 Pulse Rate [Apical] 73 Respiratory Rate 18 18 Blood Pressure 180/82 H Blood Pressure [Left Arm] 180/80 H Blood Pressure [Right Arm] 218/111 H 198/84 H Blood Pressure [Right Radial Artery] 180/82 H Blood Pressure Mean 148 Blood Pressure Mean [Left Arm] 113 Blood Pressure Mean [Right Arm] 146 122 Blood Pressure Mean [Right Radial Artery] 114 Blood Pressure Source [Left Arm] Manual Cuff/ Auscultation Blood Pressure Source [Right Arm] Automatic Cuff Manual Cuff/ Auscultation Blood Pressure Source [Right Radial Artery] Automatic Cuff Blood Pressure Position [Left Arm] Supine Blood Pressure Position [Right Arm] Sitting Supine Blood Pressure Position [Right Radial Artery] Supine 02 Sat by Pulse Oximetry 94 L 96 Oxygen Delivery Method Room Air Room Air 01/25/21 21:16 01/25/21 21:31 01/25/21 21:45 Temperature 98.1 F Temperature Source Oral Pulse Rate 64 61 63 Pulse Rate [Apical] 61 Respiratory Rate 16 Blood Pressure 170/73 H 157/78 H 157/79 H Blood Pressure [Left Arm] Blood Pressure [Right Arm] 157/78 H Blood Pressure [Right Radial Artery] Blood Pressure Mean 130 110 105 Blood Pressure Mean [Left Arm] Blood Pressure Mean [Right Arm] 104 Blood Pressure Mean [Right Radial Artery] Blood Pressure Source [Left Arm] Blood Pressure Source [Right Arm] Automatic Cuff Blood Pressure Source [Right Radial Artery] Automatic Cuff Blood Pressure Position [Left Arm] Blood Pressure Position [Right Arm] Sitting Blood Pressure Position [Right Radial Artery] Sitting 02 Sat by Pulse Oximetry 95 94 L 94 L Oxygen Delivery Method Room Air Room Air Room Air 01/25/21 22:00 01/25/21 22:30 Temperature Temperature Source Pulse Rate 68 66 Pulse Rate [Apical] Respiratory Rate 16 Blood Pressure 165/84 H 188/91 H Blood Pressure [Left Arm] Blood Pressure [Right Arm] Blood Pressure [Right Radial Artery] Blood Pressure Mean 111 104 Blood Pressure Mean [Left Arm] Blood Pressure Mean [Right Arm] Blood Pressure Mean [Right Radial Artery] Blood Pressure Source [Left Arm] Blood Pressure Source [Right Arm] Blood Pressure Source [Right Radial Artery] Blood Pressure Position [Left Arm] Blood Pressure Position [Right Arm] Blood Pressure Position [Right Radial Artery] 02 Sat by Pulse Oximetry 95 95 Oxygen Delivery Method Room Air - Lab Data Lab Results 01/25/21 20:20: WBC 10.8, R
[2021-01-25 20:40] LABS: Basophils # 0.1 K/mm3 (0-0.2); Basophils % 1.1 % (0.1-2.0); Eosinophils # 0.6 K/mm3 (0.0-0.4); Eosinophils % 5.4 % (0.1-12.0); Hemoglobin 14.3 g/dL (14.1-18.0); Lymphocytes # 4.1 K/mm3 (0.7-4.5); Lymphocytes % 38.3 % (10-50); Mean Corpuscular HGB Conc 31.8 g/dL (31.8-35.4); Mean Corpuscular Hemoglobin 29.8 pg (27.0-31.2); Mean Corpuscular Volume 93.8 fl (80-94); Mean Platelet Volume 9.3 fl (7.4-10.4); Monocytes # 0.5 K/mm3 (0.1-1.0); Monocytes % 4.8 % (1.7-9.3); Neutrophils # 5.5 K/mm3 (1.8-7.8); Neutrophils % 50.4 % (37.0-80.0); Platelet Count 377 K/mm3 (142-424); Red Blood Count 4.79 M/mm3 (4.60-6.20); White Blood Count 10.8 K/mm3 (4.8-10.8)
[2021-01-25 20:41] LABS: Chloride 103 mmol/L (98-107)
[2021-01-25 20:42] LABS: Potassium 4.4 mmoL/L (3.5-5.1); Sodium 141 mmol/L (136-145)
[2021-01-25 20:44] LABS: Alanine Aminotransferase 16 U/L (12-78); Alkaline Phosphatase 96 U/L (38-126); Aspartate Amino Transferase 27 U/L (17-59); Bilirubin,Total 0.2 mg/dl (0.2-1.3); Blood Urea Nitrogen 12 mg/dl (9-20); Creatinine Clearance Estimated 61 mL/min (50-200); Estimated Glomerular Filt Rate 83 ml/min (>60); GFR (African American) 100 ML/MIN (>60)
[2021-01-25 20:45] LABS: Albumin Level 4.1 g/dl (3.5-5.0); Albumin/Globulin Ratio 1.6 (1.1-1.8); Anion Gap 13.4 mEq/L (5-15); Calcium 9.5 mg/dl (8.4-10.2); Carbon Dioxide 29 mmol/L (22.0-30.0); Globulin 2.5 g/dL (1.3-3.2); Glucose 165 mg/dl (74-100); Total Protein,Serum 6.6 g/dl (6.3-8.2)
[2021-01-25 20:57] LABS: Troponin I < 0.01 ng/ml (0.00-0.034)
--- NOTE | 2021-01-25 21:04 | PC.NURSE ---
requested that cardene drip be held if systolic blood pressure is less than 180 using a manual cuff. Blood pressure manual on right was 198/84 and on left he was 180/80. was notified and requested drip be held for now and patients pressure be monitored.
--- NOTE | 2021-01-25 21:47 | PC.NURSE ---
calling [facility] @ this time
--- NOTE | 2021-01-25 21:58 | PC.NURSE ---
Dr. Barrera s/w Neuro- Dr. Garner
--- NOTE | 2021-01-25 22:18 | PC.NURSE ---
[facility] has accepted pt, they will call back within the hr for report.
--- NOTE | 2021-01-25 22:18 | PC.NURSE ---
Radiology preparing disc. Dr. Barrera s/w pt & his daughter about the POC and transfer.
[2021-01-25 22:33] LABS: Coronavirus 19, PCR Not Detected (NotDetected); Influenza A, PCR Not Detected (NotDetected); Influenza B, PCR Not Detected (NotDetected)
--- NOTE | 2021-01-25 23:01 | PC.NURSE ---
Called transfer center back as they requested when covid test was complete. s/w Ashtyn and she was in contact with [facility]'s dept. They asked if they could call back and then would give bed assignment.
--- NOTE | 2021-01-25 23:08 | PC.NURSE ---
Skyler @ Transfer center called back. Gave bed assignment for Drea Willard, 6th ca, room 116. Call report to [phone]
--- NOTE | 2021-01-25 23:17 | PC.NURSE ---
Gave report to Neelam BUTLER. Matthew notified that pt is ready for transfer.
--- NOTE | 2021-01-26 22:37 | ECG_ITS ---
APPROVED REPORT Exam: Resting ECG HR:58 bpm ECG Measurements Heart Rate 58 AXES VA 156 P 77 QRSd 98 QRS 69 QT 424 T 61 QTc 416 Conclusion Sinus bradycardia Incomplete right bundle branch block Borderline ECG Electronically signed by : Jhonny Young MD 01/26/2021 09:03:06
== END 2021-01-25 23:30 | disposition short-term general hospital (02) ==
PROVIDERS: Emergency Provider Emergency Medicine; PCP Family Medicine
DX: I63.311 Cerebral infarction due to thrombosis of right middle cerebral artery (principal); E11.9 Type 2 diabetes mellitus without complications; E78.5 Hyperlipidemia, unspecified; R29.706 NIHSS score 6; I10 Essential (primary) hypertension; J44.9 Chronic obstructive pulmonary disease, unspecified; Z87.891 Personal history of nicotine dependence; Z79.899 Other long term (current) drug therapy
CPT/HCPCS: 70450; 70496; 70498; 71045; 80053; 84484; 85025; 93005; 99285; C9803; Q9967; U0003; U0005

== ENCOUNTER 2021-02-18 10:04 | Emergency (ER) | payer MEDICARE, OTHER, SELFPAY ==
[2021-02-18] VITALS (8 sets, daily range): BP systolic 152–209; BP diastolic 81–109; PULSE 88–104; RESP 13–28; TEMP 36.6–36.9; O2SAT 92–95; BMI 19.6; BMI 20.7
--- NOTE | 2021-02-18 10:32 | HMH.EDUTC ---
[facility] Disposition <Regina Moreno - Last Filed: 02/18/21 17:00> Condition on Discharge: Good Time of Disposition: 15:45 <Maite Oliveira - Last Filed: 02/18/21 20:31> Clinical Impression: Acute exacerbation of chronic obstructive airways disease, COVID-19 Disposition: Home, Self-Care Instructions: DI for Chronic Obstructive Pulmonary Disease Additional Instructions: Please follow up with your primary care physician in 2-3 days for further management. You have been prescribed a zpak, please take as prescribed. Please take your albuterol haler 3 puffs every 6 hours for the next 2 days, then take as prescribed. Please return for any concerning symptoms such as difficulty breathing, chest pain, wheezing or any other concerning symptoms. Prescriptions: Azithromycin [Z-Saleem 250mg Tab*] 250 mg PO UD DOSE PK #6 tab Transmission Status: Received by [facility] Referrals: Amador Wilson MD [Primary Care Provider] - Medical Decision Making - Edwin Inquiry Pt receiving controlled substance: No Edwin was queried for this patient: No - Lab Data Result diagrams: 02/18/21 11:30 02/18/21 11:30 <Regina Moreno - Last Filed: 02/18/21 17:00> - Medical Records Medical records reviewed: Yes: I reviewed the patient's medical records. - Lab Data Result diagrams: 02/18/21 11:30 02/18/21 11:30 <Maite Oliveira - Last Filed: 02/18/21 20:31> Vital Signs: 02/18/21 10:26 02/18/21 10:49 02/18/21 10:56 Temperature 97.9 F 98.5 F Temperature Source Oral Oral Pulse Rate 94 H Pulse Rate [Left] 103 H 92 H Respiratory Rate 28 H 20 18 Blood Pressure 199/104 H Blood Pressure [Right Arm] 175/85 H 209/109 H Blood Pressure Mean 132 Blood Pressure Mean [Right Arm] 115 142 Blood Pressure Source [Right Arm] Automatic Cuff Blood Pressure Position Blood Pressure Position [Right Arm] Sitting 02 Sat by Pulse Oximetry 94 L 95 94 L Oxygen Delivery Method Room Air 02/18/21 11:30 02/18/21 12:00 02/18/21 12:30 Temperature Temperature Source Pulse Rate 89 104 H 88 Pulse Rate [Left] Respiratory Rate 16 13 20 Blood Pressure 152/83 H 160/81 H 158/84 H Blood Pressure [Right Arm] Blood Pressure Mean 114 107 115 Blood Pressure Mean [Right Arm] Blood Pressure Source [Right Arm] Blood Pressure Position Blood Pressure Position [Right Arm] 02 Sat by Pulse Oximetry 94 L 92 L 92 L Oxygen Delivery Method 02/18/21 13:02 02/18/21 15:28 Temperature 98.5 F Temperature Source Pulse Rate 95 H 95 H Pulse Rate [Left] Respiratory Rate 17 18 Blood Pressure 186/100 H 156/84 H Blood Pressure [Right Arm] Blood Pressure Mean 128 Blood Pressure Mean [Right Arm] Blood Pressure Source [Right Arm] Blood Pressure Position Sitting Blood Pressure Position [Right Arm] 02 Sat by Pulse Oximetry 93 L Oxygen Delivery Method Room Air - Lab Data Lab Results 02/18/21 11:00: VBG pH 7.31, VBG pCO2 53.7 H, VBG pO2 32.7, VBG HCO3 26.6, VBG Total CO2 28.2 H, VBG O2 Saturation 57.7, VBG Base Excess 0.3 02/18/21 11:30: WBC 7.2, RBC 4.79, Hgb 14.3, Hct 42.3, MCV 88.4, MCH 29.8, MCHC 33.7, RDW 14.1, Plt Count 478 H, MPV 8.0, Neut % (Auto) 61.1, Lymph % (Auto) 27.6, Bowie % (Auto) 6.4, Eos % (Auto) 3.7, Baso % (Auto) 1.2, Neut # (Auto) 4.4, Lymph # (Auto) 2.0, Bowie # (Auto) 0.5, Eos # (Auto) 0.3, Baso # (Auto) 0.1 02/18/21 11:30: Sodium 140, Potassium 4.4, Chloride 102, Carbon Dioxide 29, Anion Gap 13.4, BUN 19, Creatinine 0.90, Estimated Creat Clear 59, Estimated GFR 83, Est GFR ( Amer) 100, Glucose 111 H, Calcium 9.6, Total Bilirubin 0.3, AST 38, ALT 25, Alkaline Phosphatase 140 H, Troponin I 0.03, Total Protein 7.3, Albumin 4.5, Globulin 2.8, Albumin/Globulin Ratio 1.6 02/18/21 11:30: D-Dimer 0.57 H 02/18/21 11:30: NT-Pro-B Natriuret Pep 517 H 02/18/21 13:35: SARS-CoV-2 (PCR) Detected A, Influenza A Untype (PCR) Not detected, Influenza Type B (PCR) Not detected 02/18/21 13:40: Troponin I 0.02
--- NOTE | 2021-02-18 10:44 | XR_ITS ---
PROCEDURE: XR CHEST 2V CLINICAL HISTORY: shortness of breath COMPARISON: CT CHESTWW CT chest wo/w con from 07/12/2018 CR XR CHEST 2V from 01/14/2020 CR XR CHEST PORTABLE from 01/02/2021 CR XR CHEST PORTABLE from 01/25/2021 FINDINGS: The cardiomediastinal silhouette and pulmonary vascularity are within normal limits. COPD changes. Faint nodular opacity is present along the anterior aspect of both right and 5th ribs consistent nipple shadows and may be confirmed with nipple markers if clinically warranted. The remaining lungs are clear. No acute bony abnormalities. IMPRESSION: COPD. No acute finding. Dictated by: Donavan Brito MD 02/18/2021 12:05 Donavan Brito MD in [place] 02/18/2021 12:05
--- NOTE | 2021-02-18 10:46 | ECG_ITS ---
APPROVED REPORT Exam: Resting ECG HR:90 bpm ECG Measurements Heart Rate 90 AXES OR 140 P 85 QRSd 96 QRS 87 QT 364 T 78 QTc 445 Conclusion Normal sinus rhythm Normal ECG Electronically signed by : Jhonny Young MD 02/18/2021 20:01:36
[2021-02-18 11:40] LABS: Basophils # 0.1 K/mm3 (0-0.2); Basophils % 1.2 % (0.1-2.0); Eosinophils # 0.3 K/mm3 (0.0-0.4); Eosinophils % 3.7 % (0.1-12.0); Hematocrit 42.3 % (42.0-52.0); Hemoglobin 14.3 g/dL (14.1-18.0); Lymphocytes % 27.6 % (10-50); Mean Corpuscular HGB Conc 33.7 g/dL (31.8-35.4); Mean Corpuscular Hemoglobin 29.8 pg (27.0-31.2); Mean Corpuscular Volume 88.4 fl (80-94); Monocytes # 0.5 K/mm3 (0.1-1.0); Monocytes % 6.4 % (1.7-9.3); Neutrophils # 4.4 K/mm3 (1.8-7.8); Neutrophils % 61.1 % (37.0-80.0); Platelet Count 478 K/mm3 (142-424); Red Blood Count 4.79 M/mm3 (4.60-6.20); Red Cell Distribution Width 14.1 % (11.5-17.5); White Blood Count 7.2 K/mm3 (4.8-10.8)
[2021-02-18 11:49] LABS: Chloride 102 mmol/L (98-107); Sodium 140 mmol/L (136-145)
[2021-02-18 11:50] LABS: Potassium 4.4 mmoL/L (3.5-5.1)
[2021-02-18 11:52] LABS: Alanine Aminotransferase 25 U/L (12-78); Albumin Level 4.5 g/dl (3.5-5.0); Albumin/Globulin Ratio 1.6 (1.1-1.8); Alkaline Phosphatase 140 U/L (38-126); Anion Gap 13.4 mEq/L (5-15); Aspartate Amino Transferase 38 U/L (17-59); Bilirubin,Total 0.3 mg/dl (0.2-1.3); Blood Urea Nitrogen 19 mg/dl (9-20); Calcium 9.6 mg/dl (8.4-10.2); Carbon Dioxide 29 mmol/L (22.0-30.0); Creatinine Clearance Estimated 59 mL/min (50-200); Estimated Glomerular Filt Rate 83 ml/min (>60); GFR (African American) 100 ML/MIN (>60); Globulin 2.8 g/dL (1.3-3.2); Glucose 111 mg/dl (74-100); Total Protein,Serum 7.3 g/dl (6.3-8.2)
[2021-02-18 11:58] LABS: D-Dimer 0.57 ug/mL (0.0-0.5)
[2021-02-18 12:02] LABS: NT Pro Brain Natriuretic Pep. 517 pg/mL (0-125)
[2021-02-18 12:05] LABS: Troponin I 0.03 ng/ml (0.00-0.034)
[2021-02-18 12:16] LABS: VBG Base Excess 0.3 mmol/L (-2.4-2.3); VBG HCO3 26.6 mmol/L (23-30); VBG Oxygen Saturation 57.7 % (50-70); VBG PCO2 53.7 mmol/L (35-51); VBG PH 7.31 mmol/L (7.31-7.41); VBG PO2 32.7 mmol/L (28-40); VBG Total CO2 28.2 mmol/L (23-27)
--- NOTE | 2021-02-18 13:06 | PC.NURSE ---
notified RT of neb treatment order.
[2021-02-18 13:40] LABS: Influenza A, PCR Not Detected (NotDetected); Influenza B, PCR Not Detected (NotDetected)
[2021-02-18 14:32] LABS: Troponin I 0.02 ng/ml (0.00-0.034)
[2021-02-18 14:36] LABS: Coronavirus 19, PCR Detected (NotDetected)
--- NOTE | 2021-02-18 15:42 | PC.NURSE ---
left message on pt voicemail asking for a return call r/t test results
== END 2021-02-18 15:28 | disposition home or self-care (01) ==
LOC: UTC 10:32 → ER 10:37
PROVIDERS: Emergency Provider Student in an Organized Health Care Education/Training Program; PCP Family Medicine
DX: J44.1 Chronic obstructive pulmonary disease with (acute) exacerbation (principal); U07.1 COVID-19; E11.9 Type 2 diabetes mellitus without complications; E78.5 Hyperlipidemia, unspecified; I10 Essential (primary) hypertension; Z87.891 Personal history of nicotine dependence; Z79.899 Other long term (current) drug therapy
CPT/HCPCS: 36415; 71046; 80053; 82803; 83880; 84484; 85025; 85378; 93005; 96374; 99283; C9803; U0003; U0005

== ENCOUNTER 2021-02-23 07:57 | Outpatient (CLI) | payer MEDICARE, OTHER, SELFPAY ==
[2021-02-23] VITALS (7 sets, daily range): BP systolic 136–169; BP diastolic 65–80; PULSE 90–105; RESP 18–22; TEMP 36.4; O2SAT 92–94; BMI 20.5
== END 2021-02-23 10:07 | disposition home or self-care (01) ==
PROVIDERS: PCP Family Medicine; Visit Provider Family Medicine
DX: U07.1 COVID-19 (principal); Z23 Encounter for immunization
CPT/HCPCS: 96365

== ENCOUNTER → 2021-05-13 14:50 | Outpatient (CLI) | payer MEDICARE, OTHER, SELFPAY ==
--- NOTE | 2021-05-13 14:50 | CT_ITS ---
FINAL REPORT CLINICAL HISTORY: lung cancer screening former smoker- quit 4 years ago. smoked 2 ppd for 40 years. FINDINGS: Low-Dose Chest CT CTDI vol (mGy): 2.90 DLP (mGy-cm): 110.46 Axial images were obtained from the lung apex to the mid abdomen by computed tomography. Low-dose protocol was utilized. FINDINGS: CHEST: There is no axillary adenopathy. There is no hilar or mediastinal adenopathy. The heart is proper size. There are moderate to severe coronary artery calcifications. There is no pericardial or pleural effusion. Limited images of the upper abdomen are unremarkable. Lung window images demonstrate moderate emphysema. There is mild scarring. There is a stable 4 mm nodule in the posterior left upper lobe that is best seen on image 13. There are several other small nodules that are stable. There is a small nodule in the left major fissure which may represent an intra fissural lymph node. There is a calcified granuloma in the right lower lobe. IMPRESSION: Multiple small nodules, stable. Lung RADS category 2. Recommend 12 month follow-up low-dose chest CT. Reviewed, Interpreted and Dictated by Davey Balderrama III, MD Transcribed by Kelly Grissom Authenticated by Davey Balderrama III, MD on 05/13/2021 04:11:[address] [facility]
== END ==
PROVIDERS: PCP Family Medicine; Visit Provider Internal Medicine Pulmonary Disease
DX: Z87.891 Personal history of nicotine dependence (principal); Z12.2 Encounter for screening for malignant neoplasm of respiratory organs; R06.09 Other forms of dyspnea
CPT/HCPCS: 71271; 94762

== ENCOUNTER → 2021-07-29 10:26 | Outpatient (CLI) | payer MEDICARE, OTHER, SELFPAY ==
[2021-07-29 11:09] LABS: Basophils # 0.1 K/mm3 (0-0.2); Basophils % 1.4 % (0.1-2.0); Eosinophils # 0.2 K/mm3 (0.0-0.4); Eosinophils % 2.6 % (0.1-12.0); Hemoglobin 14.6 g/dL (14.1-18.0); Lymphocytes # 2.9 K/mm3 (0.7-4.5); Lymphocytes % 31.7 % (10-50); Mean Corpuscular HGB Conc 33.1 g/dL (31.8-35.4); Mean Corpuscular Hemoglobin 29.9 pg (27.0-31.2); Mean Corpuscular Volume 90.2 fl (80-94); Mean Platelet Volume 8.6 fl (7.4-10.4); Monocytes # 0.4 K/mm3 (0.1-1.0); Monocytes % 4.1 % (1.7-9.3); Neutrophils # 5.4 K/mm3 (1.8-7.8); Neutrophils % 60.2 % (37.0-80.0); Platelet Count 443 K/mm3 (142-424); Red Blood Count 4.88 M/mm3 (4.60-6.20); Red Cell Distribution Width 14.7 % (11.5-17.5)
[2021-07-29 11:24] LABS: Alanine Aminotransferase 18 U/L (12-78); Albumin Level 4.4 g/dl (3.5-5.0); Albumin/Globulin Ratio 2.2 (1.1-1.8); Alkaline Phosphatase 99 U/L (38-126); Anion Gap 12.9 mEq/L (5-15); Aspartate Amino Transferase 21 U/L (17-59); Bilirubin,Total 0.4 mg/dl (0.2-1.3); Blood Urea Nitrogen 18 mg/dl (9-20); Calcium 9.9 mg/dl (8.4-10.2); Carbon Dioxide 30 mmol/L (22.0-30.0); Chloride 102 mmol/L (98-107); Chol/HDL Ratio 2.9 (1-3.5); Cholesterol 113 mg/dl (140-200); Estimated Glomerular Filt Rate 95 ml/min (>60); GFR (African American) 115 ML/MIN (>60); Glucose 144 mg/dl (74-100); HDL Cholesterol 39 mg/dl (40-60); Potassium 4.9 mmoL/L (3.5-5.1); Sodium 140 mmol/L (136-145); Total Protein,Serum 6.4 g/dl (6.3-8.2); Triglycerides 83 mg/dl (30-150); VLDL Cholesterol 17 mg/dL (0-40)
[2021-07-29 11:36] LABS: Direct LDL Cholesterol 56.04 mg/dL (100-129)
[2021-07-29 11:55] LABS: Thyroid Stimulating Hormone 2.59 uIU/mL (0.465-4.68)
== END ==
PROVIDERS: Visit Provider Family Medicine
DX: E11.59 Type 2 diabetes mellitus with other circulatory complications (principal); I10 Essential (primary) hypertension; Z79.84 Long term (current) use of oral hypoglycemic drugs
CPT/HCPCS: 36415; 80053; 80061; 83036; 84443; 85025

== ENCOUNTER → 2022-01-01 15:08 | Outpatient (CLI) | payer MEDICARE, OTHER, SELFPAY ==
--- NOTE | 2022-01-01 15:19 | XR_ITS ---
FINAL REPORT CLINICAL HISTORY: COVID OUT PAT. COMPARISON: February 18, 2021 FINDINGS: The heart size is normal. The mediastinum is within normal limits. The lungs are hyperinflated consistent with COPD. There is lateral right base opacity. There is a small right pleural effusion or pleural thickening. There is no pneumothorax. The bony thorax is intact. IMPRESSION: Lateral right base opacity could represent atelectasis or pneumonia. Reviewed, Interpreted and Dictated by Davey Balderrama III, MD Transcribed by Geovany Marino Authenticated and [facility]
[2022-01-01 15:57] LABS: Basophils # 0.1 K/mm3 (0-0.2); Basophils % 0.5 % (0.1-2.0); Eosinophils # 0.4 K/mm3 (0.0-0.4); Eosinophils % 2.6 % (0.1-12.0); Hematocrit 41.4 % (42.0-52.0); Hemoglobin 13.6 g/dL (14.1-18.0); Lymphocytes # 2.8 K/mm3 (0.7-4.5); Mean Corpuscular Hemoglobin 30.1 pg (27.0-31.2); Mean Corpuscular Volume 91.4 fl (80-94); Mean Platelet Volume 8.7 fl (7.4-10.4); Monocytes # 0.8 K/mm3 (0.1-1.0); Monocytes % 5.7 % (1.7-9.3); Neutrophils # 9.4 K/mm3 (1.8-7.8); Neutrophils % 70.2 % (37.0-80.0); Platelet Count 445 K/mm3 (142-424); Red Blood Count 4.53 M/mm3 (4.60-6.20); Red Cell Distribution Width 13.9 % (11.5-17.5); White Blood Count 13.4 K/mm3 (4.8-10.8)
== END ==
PROVIDERS: PCP Family Medicine; Visit Provider Family Medicine
DX: Z20.822 Contact with and (suspected) exposure to COVID-19 (principal)
CPT/HCPCS: 36415; 71045; 85025; C9803; U0003; U0005

== ENCOUNTER → 2022-01-22 17:22 | Outpatient (CLI) | payer MEDICARE, OTHER, SELFPAY ==
--- NOTE | 2022-01-22 | XR_ITS ---
PROCEDURE INFORMATION: Exam: XR Chest Exam date and time: 01/22/2022 5:30 PM Age: 76 years old Clinical indication: Shortness of breath; Patient HX: Copd, SOA TECHNIQUE: Imaging protocol: Radiologic exam of the chest. Views: 2 views. Three images received. COMPARISON: CR XR CHEST PORTABLE 01/01/2022 3:32 PM FINDINGS: Lungs: Improved aeration of the anterolateral right lung base compared with 01/01/2022, with minimal residual pneumonia versus atelectasis or scarring. No acute findings in the left lung. Chronic pulmonary hyperinflation consistent with history of COPD. Pulmonary vessels do not appear congested. Chronic granulomatous changes. Pleural spaces: No pleural effusion. No pneumothorax. Heart/Mediastinum: The cardiac silhouette is normal. Bones/joints: There are spinal degenerative changes, with multilevel disc narrrowing and spondylosis. Chronic appearing anterior wedge deformities in the lower thoracic spine. IMPRESSION: 1. Improved aeration of the anterolateral right lung base compared with 01/01/2022, with minimal residual pneumonia, versus atelectasis or scarring. No significant consolidation seen today. 2. Findings of COPD, with chronic pulmonary hyperinflation, emphysematous change and interstitial scarring. 3. Additional nonemergency and chronic findings as above.
== END ==
PROVIDERS: PCP Family Medicine; Visit Provider Family Medicine
DX: R06.02 Shortness of breath (principal); J44.9 Chronic obstructive pulmonary disease, unspecified
CPT/HCPCS: 71046

== ENCOUNTER → 2022-01-23 12:35 | Outpatient (CLI) | payer MEDICARE, OTHER, SELFPAY ==
--- NOTE | 2022-01-23 12:42 | US_ITS ---
FINAL REPORT CLINICAL HISTORY: EPIGASTRIC PAIN FINDINGS: Sonographic images of the right upper quadrant were obtained. The pancreas is partially obscured.The liver has an unremarkable appearance.The gallbladder appears normal without evidence of gallstones.There is no evidence of biliary ductal dilatation.The common duct measures 2 mm. Limited images of the right kidney are unremarkable. There is a small amount of free fluid adjacent to the liver. IMPRESSION: Small amount of free fluid adjacent to the liver. Reviewed, Interpreted and Dictated by Davey Balderrama III, MD Transcribed by Leandra Ratliff Authenticated and [facility]
== END ==
PROVIDERS: PCP Family Medicine; Visit Provider Family Medicine
DX: R10.11 Right upper quadrant pain (principal)
CPT/HCPCS: 76705

== ENCOUNTER 2022-01-23 18:39 | Emergency (ER) | payer MEDICARE, OTHER, SELFPAY ==
--- NOTE | 2022-01-23 18:53 | ECG_ITS ---
APPROVED REPORT Exam: Resting ECG HR:126 bpm ECG Measurements Heart Rate 126 AXES NH 152 P -79 QRSd 52 QRS -48 QT 289 T 240 QTc 364 Conclusion SINUS TACHYCARDIA WITH FREQUENT VENTRICULAR PREMATURE COMPLEXES LOW QRS VOLTAGE [QRS DEFLECTION < 0.5/1.0 mV IN LIMB/CHEST LEADS] POSSIBLE RIGHT VENTRICULAR CONDUCTION DELAY [RSR (QR) IN V1/V2] POSSIBLE ANTERIOR MYOCARDIAL INFARCTION , OF INDETERMINATE AGE [30 ms Q WAVE IN V3/V4, OR R < 0.2 mV IN V4] INFERIOR MYOCARDIAL INFARCTION , OF INDETERMINATE AGE [40+ ms Q WAVE AND/OR ST/T ABNORMALITY IN II/aVF] MARKED ST ELEVATION, CONSIDER LATERAL INJURY [MARKED ST ELEVATION W/O NORMALLY INFLECTED T-WAVE IN I/aVL/V5/V6] ACUTE LA UNCONFIRMED REPORT Electronically signed by : Jhonny Young MD 01/25/2022 21:21:00
[2022-01-23 19:05] LABS: VBG Base Excess -17.6 mmol/L (-2.4-2.3); VBG HCO3 14.6 mmol/L (23-30); VBG Oxygen Saturation 97.6 % (50-70); VBG PCO2 68.8 mmol/L (35-51); VBG PO2 147.9 mmol/L (28-40); VBG Total CO2 16.7 mmol/L (23-27)
[2022-01-23 19:18] LABS: VBG PH 6.94 mmol/L (7.31-7.41)
--- NOTE | 2022-01-23 19:46 | PC.NURSE ---
SPOKE WITH ALEXANDRA KEITH. WAS ADVISED THAT SHE WILL CALL THE FAMILY IN 30-40 MINUTES, ALLOWING THEM TIME TO GET HOME SO THAT SHE IS NOT CALLING THEM WHILE DRIVING. STATED THAT SHE WILL CALL US BACK AFTER SPEAKING WITH THE NEXT OF [facility]. ADVISES FOR US TO NOT RELEASE TO HOME UNTIL SPEAKING TO ALEXANDRA AGAIN.
--- NOTE | 2022-01-23 19:55 | HMH.EDGENADL ---
Discharge Plan Disposition Patient Disposition: Date/Time: 01/23/22 19:11 Clinical Impressions Clinical Impression: Cardiac arrest Discharge ED Provider: Srinivasa Lambert General Adult HPI General Stated complaint: respiratory failure Time Seen by Provider: 01/23/22 18:39 History of Present Illness HPI narrative: Patient is a 76-year-old male that is chronically ill with past medical history of COPD presents emergency department in extremis. Limited history is obtained by EMS. Patient reportedly called for respiratory distress at his home. When he was found he was on his toilet unable to get up. They moved him to a stretcher where although short of breath was protecting his airway. Upon arrival to the hospital patient quit breathing on his own and was being bagged as he rolled into the ambulance bay. No other history is able to be obtained at this time. Related Data Home Medications Medication Instructions Recorded Confirmed atorvastatin 40 mg tablet 40 mg PO HS Cholesterol 30 days 02/18/18 01/25/21 gabapentin 300 mg capsule 300 mg PO TID Pain 30 days 02/18/18 01/25/21 metformin 1,000 mg tablet 1,000 mg PO BID Diabetes 90 days 02/18/18 01/25/21 metoprolol tartrate 25 mg tablet 12.5 mg PO BID Hypertension 30 days 02/18/18 01/25/21 omeprazole 40 mg capsule,delayed 40 mg PO DAILY ACID REFLUX 90 days 02/18/18 01/25/21 release amlodipine 5 mg tablet 5 mg PO DAILY Hypertension 01/11/20 01/25/21 aspirin 81 mg chewable tablet 81 mg PO DAILY Heart disease 01/25/21 01/25/21 tiotropium 2.5 mcg-olodaterol 2.5 2 puff inhalation DAILY Asthma 01/25/21 01/25/21 mcg/actuation mist for inhalation Previous Rx's Medication Instructions Recorded azithromycin 250 mg tablet 250 mg PO UD DOSE PK #6 tabs 02/18/21 albuterol sulfate 90 mcg/actuation 1 inh inhalation Q6H PRN shortness 05/05/21 aerosol inhaler of breath or wheezing 90 days #8.5 grams budesonide 0.25 mg/2 mL suspension 0.25 mg (2 mL) inhalation BID 90 05/05/21 for nebulization days #360 mL ipratropium 0.5 mg-albuterol 3 mg 3 ml inhalation Q6H PRN shortness 05/05/21 (2.5 mg base)/3 mL nebulization of breath or wheezing #90 mL soln tiotropium 2.5 mcg-olodaterol 2.5 2 puff inhalation DAILY 90 days #4 05/05/21 mcg/actuation mist for inhalation grams (Stiolto Respimat) Allergies Allergy/AdvReac Type Severity Reaction Status Date / Time lisinopril [LISINOPRIL] Allergy Intermediate SWELLING Verified 12/26/20 10:06 [facility] Social History Smoking Status: Former smoker pack-years: 50 second hand exposure: No alcohol intake: never substance use type: denies use current occupational status: retired Travel in the last 8 weeks: None household members: spouse housing: apartment current occupational exposures/hazards: No caffeine: Yes ROS Obtained: Yes other (Unable to review due to yen-arrest) Physical Exam General General appearance: in distress (In extremis) Head Head exam: atraumatic Eye Eye exam: Present PERRL Respiratory Respiratory exam: Present other (Minimal air movement bilaterally with bagged respirations) Cardiovascular Cardiovascular exam: Present other (No palpable femoral pulses) Abdominal Exam Abdominal exam: Present distention Neurological Exam Neurological exam: Present other (GCS 3) Medical Decision Making Edwin Inquiry Pt receiving controlled substance: No Lab Data Lab Results 01/23/22 19:02: VBG pH 6.94 L, VBG pCO2 68.8 H, VBG pO2 147.9 H, VBG HCO3 14.6 L, VBG Total CO2 16.7 L, VBG O2 Saturation 97.6 H, VBG Base Excess -17.6 L Orders (Tests/Meds): ED MEDICATIONS Generic Name Dose Route Start Last Admin Trade Name Dennys PRN Reason Stop Dose Admin Epinephrine HCl 1 mg 01/23/22 18:43 01/23/22 18:59 Epinephrine 0.1 Mg/Ml 10ml Syringe (Crash Cart) IV 02/22/22 18:42 1 mg NEEDED PRN Administration Code Blue Med Administration Discontinued Medications Gen
[2022-01-23 19:59] VITALS: BMI 21.9
--- NOTE | 2022-01-23 20:13 | PC.NURSE ---
183: ARRIVED VIA EMS TO ED, BMV AND NASAL AIRWAY STARTED BY EMS 1839: PEA; COMPRESSIONS STARTED 184: LT TIBIAL IO ACCESS 1844: PULSE CHECK PEA; RT EJ PLACED; ETT 7.5 22 AT LIP, COLOR CHANGE NOTED AND POSITIVE BILATERAL BREATH SOUNDS 1849: HR 130'S; IRREGULAR RHYTHM 1852: EKG PERFORMED 1858: PHONE CONSULT BETWEEN AND DR WILDE REGARDING EKG READING 1901: PULSE CHECK; V FIB; SHOCK; RESUME COMPRESSIONS 1904: PULSE CHECK; V FIB; SHOCK, RESUME COMPRESSIONS 1908: PULSE CHECK; FINE V FIB 1910: CALLED CODE AND PRONOUNCED
--- NOTE | 2022-01-23 20:20 | PC.NURSE ---
UPON ARRIVAL TO ED, EMS REPORTED THAT PT HAD BEEN C/O CP AND SOA X1 WEEK. REPORTS EXTENSIVE HX OF COPD.
[2022-01-23 21:13] VITALS: BP 0/0; PULSE 0; RESP 0; TEMP -17.7; TEMP 0; O2SAT 0
--- NOTE | 2022-01-24 00:20 | PC.NURSE ---
spoke with Kimi Anderson with [facility] the family was unreachable. [facility] released the body.
== END 2022-01-23 21:16 | disposition expired ==
PROVIDERS: Emergency Provider Emergency Medicine; PCP Family Medicine
DX: I46.9 Cardiac arrest, cause unspecified (principal); Z79.82 Long term (current) use of aspirin; Z79.84 Long term (current) use of oral hypoglycemic drugs; Z79.899 Other long term (current) drug therapy; J44.9 Chronic obstructive pulmonary disease, unspecified; E11.9 Type 2 diabetes mellitus without complications; I10 Essential (primary) hypertension; K21.9 Gastro-esophageal reflux disease without esophagitis; E78.5 Hyperlipidemia, unspecified
CPT/HCPCS: 31500; 76705; 82803; 92950; 93005; 96374; 96375; 96376; 99291; J0282